=== PATIENT | female | born 1985 | race Caucasian/White ===

== ENCOUNTER 2017-11-26 15:14 | Inpatient (IN) | payer BC, OTHER ==
[~2017-11-26] VITALS: Ht 167.6 cm; Wt 74.0 kg
[~2017-11-26 15:14] MED LIST: AMOCLA875 PO; ATOR20 PO; CIPR500 PO; DOCU100 PO; FENO145 PO; HYDACE10B PO; HYDACE5 PO; HYDMOR2 PO; IBUP800 PO; IUD; MECL25 PO; MULVITMINE; OMEP40CA12 PO; OXYACE5T PO; POTCHL20ER PO; PROC10 PO; PROM25 PO; Percocet 5-3251 EACH PO; Prilosec Otc20 MG PO; RANI150 PO; ROXICODONE5 MG PO; RXOXYACE PO; Roxicodone5 MG PO; SERT100; SERT50 PO
[2017-11-26 15:49] LABS: Source, Urine Clean Catch
[2017-11-26 15:52] LABS: BASOPHILS ABSOLUTE AUTO 0.05 K/mm3 (0.00-0.23); BASOPHILS PERCENT AUTO 1 % (0-2); EOSINOPHILS ABSOLUTE AUTO 0.28 K/mm3 (0.00-0.68); EOSINOPHILS PERCENT AUTO 3 % (0-6); Hematocrit 35.5 % (33.0-51.0); Hemoglobin 11.8 g/dL (11.5-16.0); IMMATURE GRAN ABSOLUTE AUTO 0.02 K/mm3 (0.00-0.10); IMMATURE GRAN PERCENT AUTO 0 % (0-1); LYMPHOCYTES ABSOLUTE AUTO 2.52 K/mm3 (0.84-5.20); LYMPHOCYTES PERCENT AUTO 28 % (21-46); MONOCYTES ABSOLUTE AUTO 0.46 K/mm3 (0.16-1.47); MONOCYTES PERCENT AUTO 5 % (4-13); Mean Corpuscular HGB 27.5 pg (26.0-34.0); Mean Corpuscular HGB Conc 33.2 g/dL (31.5-36.5); Mean Corpuscular Volume 83 fL (80-100); Mean Platelet Volume 9.9 fL (9.1-12.4); NEUTROPHILS ABSOLUTE AUTO 5.68 K/mm3 (1.96-9.15); NEUTROPHILS PERCENT AUTO 63 % (41-73); Platelet Count 258 K/mm3 (150-400); RDW Coefficient Variation 13.6 % (11.7-14.2); RDW Standard Deviation 40.9 fL (35.1-46.3); Red Blood Cell Count 4.29 M/mm3 (3.80-5.20); White Blood Cell Count 9.01 K/mm3 (4.00-11.30)
[2017-11-26 15:56] LABS: Appearance, Urine Clear (Clear); Bilirubin, Urine Neg (Neg); Blood, Urine Neg (Neg); Color, Urine Yellow (P-Yellow); Glucose Qualitative, Urine Neg (Neg); Ketones, Urine Neg (Neg); Leukocyte Esterase, Urine Neg (Neg); Nitrite, Urine Neg (Neg); Protein, Urine 1+ (Neg); Specific Gravity, Urine 1.015 (1.003-1.022); Urobilinogen, Urine NORM (Normal)
[2017-11-26 16:23] LABS: Alanine Aminotransfer (ALT/SGP 19 U/L (12-78); Albumin, Blood 3.5 g/dL (3.4-5.0); Albumin/Globulin Ratio 0.9 (0.8-1.8); Alk Phos 93 U/L (50-136); Anion Gap 8 mmol/L (6-16); Aspartate Aminotrans (AST/SGOT 11 U/L (12-37); Bilirubin, Total 0.6 mg/dL (0.1-1.0); Blood Urea Nitrogen 13 mg/dL (8-24); Bun/Creatinine Ratio 28.6 (12.0-20.0); CO2, Blood 23 mmol/L (21-32); Calcium, Blood 8.4 mg/dL (8.5-10.1); Chloride, Blood 105 mmol/L (98-108); Cholesterol 234 mg/dL (50-200); Creatinine, Blood 0.46 mg/dL (0.40-1.00); Globulin, Blood 3.7 g/dL (2.2-4.0); Glomerular Filtration Rate >60 (60-); Glucose, Blood 98 mg/dL (70-99); Potassium, Blood 3.8 mmol/L (3.5-5.5); Sodium, Blood 136 mmol/L (136-145); Total Protein, Blood 7.2 g/dL (6.4-8.2); Triglycerides 294 mg/dL (30-140)
[2017-11-26] MEDS ORDERED: NAPR220 PO (22:41)
[2017-11-27 04:25] LABS: BASOPHILS ABSOLUTE AUTO 0.06 K/mm3 (0.00-0.23); BASOPHILS PERCENT AUTO 0 % (0-2); EOSINOPHILS ABSOLUTE AUTO 0.27 K/mm3 (0.00-0.68); EOSINOPHILS PERCENT AUTO 2 % (0-6); Hematocrit 36.4 % (33.0-51.0); Hemoglobin 11.9 g/dL (11.5-16.0); IMMATURE GRAN ABSOLUTE AUTO 0.03 K/mm3 (0.00-0.10); IMMATURE GRAN PERCENT AUTO 0 % (0-1); LYMPHOCYTES PERCENT AUTO 33 % (21-46); MONOCYTES ABSOLUTE AUTO 0.77 K/mm3 (0.16-1.47); MONOCYTES PERCENT AUTO 6 % (4-13); Mean Corpuscular HGB 27.9 pg (26.0-34.0); Mean Corpuscular HGB Conc 32.7 g/dL (31.5-36.5); Mean Corpuscular Volume 85 fL (80-100); Mean Platelet Volume 10.4 fL (9.1-12.4); NEUTROPHILS ABSOLUTE AUTO 8.31 K/mm3 (1.96-9.15); NEUTROPHILS PERCENT AUTO 59 % (41-73); Platelet Count 290 K/mm3 (150-400); RDW Coefficient Variation 13.6 % (11.7-14.2); RDW Standard Deviation 42.1 fL (35.1-46.3); Red Blood Cell Count 4.27 M/mm3 (3.80-5.20); White Blood Cell Count 14.04 K/mm3 (4.00-11.30)
[2017-11-27 04:46] LABS: Anion Gap 8 mmol/L (6-16); Blood Urea Nitrogen 10 mg/dL (8-24); Bun/Creatinine Ratio 21.2 (12.0-20.0); CO2, Blood 23 mmol/L (21-32); Calcium, Blood 8.1 mg/dL (8.5-10.1); Chloride, Blood 109 mmol/L (98-108); Creatinine, Blood 0.47 mg/dL (0.40-1.00); Glomerular Filtration Rate >60 (60-); Glucose, Blood 101 mg/dL (70-99); Phosphorus, Blood 2.6 mg/dL (2.5-4.9); Potassium, Blood 3.7 mmol/L (3.5-5.5); Sodium, Blood 140 mmol/L (136-145)
[2017-11-27 14:03] LABS: BASOPHILS ABSOLUTE AUTO 0.03 K/mm3 (0.00-0.23); BASOPHILS PERCENT AUTO 0 % (0-2); EOSINOPHILS ABSOLUTE AUTO 0.02 K/mm3 (0.00-0.68); EOSINOPHILS PERCENT AUTO 0 % (0-6); Hematocrit 34.8 % (33.0-51.0); Hemoglobin 11.2 g/dL (11.5-16.0); IMMATURE GRAN ABSOLUTE AUTO 0.04 K/mm3 (0.00-0.10); IMMATURE GRAN PERCENT AUTO 0 % (0-1); LYMPHOCYTES ABSOLUTE AUTO 1.24 K/mm3 (0.84-5.20); LYMPHOCYTES PERCENT AUTO 10 % (21-46); MONOCYTES ABSOLUTE AUTO 0.63 K/mm3 (0.16-1.47); MONOCYTES PERCENT AUTO 5 % (4-13); Mean Corpuscular HGB 27.6 pg (26.0-34.0); Mean Corpuscular HGB Conc 32.2 g/dL (31.5-36.5); Mean Corpuscular Volume 86 fL (80-100); NEUTROPHILS ABSOLUTE AUTO 10.88 K/mm3 (1.96-9.15); NEUTROPHILS PERCENT AUTO 85 % (41-73); Platelet Count 230 K/mm3 (150-400); RDW Coefficient Variation 13.5 % (11.7-14.2); RDW Standard Deviation 42.6 fL (35.1-46.3); Red Blood Cell Count 4.06 M/mm3 (3.80-5.20); White Blood Cell Count 12.84 K/mm3 (4.00-11.30)
[2017-11-28 06:04] LABS: Alanine Aminotransfer (ALT/SGP 14 U/L (12-78); Albumin, Blood 3.3 g/dL (3.4-5.0); Albumin/Globulin Ratio 0.8 (0.8-1.8); Alk Phos 84 U/L (50-136); Anion Gap 9 mmol/L (6-16); Aspartate Aminotrans (AST/SGOT 12 U/L (12-37); Bilirubin, Total 0.8 mg/dL (0.1-1.0); Blood Urea Nitrogen 14 mg/dL (8-24); Bun/Creatinine Ratio 24.9 (12.0-20.0); CO2, Blood 23 mmol/L (21-32); Calcium, Blood 8.4 mg/dL (8.5-10.1); Chloride, Blood 106 mmol/L (98-108); Creatinine, Blood 0.56 mg/dL (0.40-1.00); Glomerular Filtration Rate >60 (60-); Glucose, Blood 99 mg/dL (70-99); Potassium, Blood 4.1 mmol/L (3.5-5.5); Sodium, Blood 138 mmol/L (136-145); Total Protein, Blood 7.3 g/dL (6.4-8.2)
[2017-11-28 13:23] LABS: BASOPHILS ABSOLUTE AUTO 0.03 K/mm3 (0.00-0.23); BASOPHILS PERCENT AUTO 0 % (0-2); EOSINOPHILS ABSOLUTE AUTO 0.09 K/mm3 (0.00-0.68); EOSINOPHILS PERCENT AUTO 1 % (0-6); Hematocrit 34.7 % (33.0-51.0); Hemoglobin 11.4 g/dL (11.5-16.0); IMMATURE GRAN ABSOLUTE AUTO 0.04 K/mm3 (0.00-0.10); IMMATURE GRAN PERCENT AUTO 0 % (0-1); LYMPHOCYTES ABSOLUTE AUTO 2.31 K/mm3 (0.84-5.20); LYMPHOCYTES PERCENT AUTO 19 % (21-46); MONOCYTES ABSOLUTE AUTO 0.75 K/mm3 (0.16-1.47); MONOCYTES PERCENT AUTO 6 % (4-13); Mean Corpuscular HGB 27.9 pg (26.0-34.0); Mean Corpuscular HGB Conc 32.9 g/dL (31.5-36.5); Mean Corpuscular Volume 85 fL (80-100); NEUTROPHILS ABSOLUTE AUTO 9.21 K/mm3 (1.96-9.15); NEUTROPHILS PERCENT AUTO 74 % (41-73); Platelet Count 205 K/mm3 (150-400); RDW Coefficient Variation 13.5 % (11.7-14.2); RDW Standard Deviation 42.1 fL (35.1-46.3); Red Blood Cell Count 4.08 M/mm3 (3.80-5.20); White Blood Cell Count 12.43 K/mm3 (4.00-11.30)
[2017-11-29 05:12] LABS: BASOPHILS ABSOLUTE AUTO 0.03 K/mm3 (0.00-0.23); BASOPHILS PERCENT AUTO 0 % (0-2); EOSINOPHILS ABSOLUTE AUTO 0.16 K/mm3 (0.00-0.68); EOSINOPHILS PERCENT AUTO 1 % (0-6); Hematocrit 32.6 % (33.0-51.0); Hemoglobin 10.9 g/dL (11.5-16.0); IMMATURE GRAN ABSOLUTE AUTO 0.05 K/mm3 (0.00-0.10); IMMATURE GRAN PERCENT AUTO 0 % (0-1); LYMPHOCYTES ABSOLUTE AUTO 1.79 K/mm3 (0.84-5.20); LYMPHOCYTES PERCENT AUTO 15 % (21-46); MONOCYTES ABSOLUTE AUTO 0.81 K/mm3 (0.16-1.47); MONOCYTES PERCENT AUTO 7 % (4-13); Mean Corpuscular HGB 28.4 pg (26.0-34.0); Mean Corpuscular HGB Conc 33.4 g/dL (31.5-36.5); Mean Corpuscular Volume 85 fL (80-100); Mean Platelet Volume 10.7 fL (9.1-12.4); NEUTROPHILS ABSOLUTE AUTO 9.27 K/mm3 (1.96-9.15); NEUTROPHILS PERCENT AUTO 77 % (41-73); Platelet Count 210 K/mm3 (150-400); RDW Coefficient Variation 13.6 % (11.7-14.2); RDW Standard Deviation 41.8 fL (35.1-46.3); Red Blood Cell Count 3.84 M/mm3 (3.80-5.20); White Blood Cell Count 12.11 K/mm3 (4.00-11.30)
[2017-11-29 05:39] LABS: Alanine Aminotransfer (ALT/SGP 30 U/L (12-78); Albumin, Blood 2.9 g/dL (3.4-5.0); Albumin/Globulin Ratio 0.7 (0.8-1.8); Alk Phos 96 U/L (50-136); Anion Gap 8 mmol/L (6-16); Aspartate Aminotrans (AST/SGOT 26 U/L (12-37); Bilirubin, Total 0.7 mg/dL (0.1-1.0); Blood Urea Nitrogen 11 mg/dL (8-24); Bun/Creatinine Ratio 25.2 (12.0-20.0); CO2, Blood 27 mmol/L (21-32); Calcium, Blood 8.3 mg/dL (8.5-10.1); Chloride, Blood 100 mmol/L (98-108); Creatinine, Blood 0.44 mg/dL (0.40-1.00); Globulin, Blood 4.1 g/dL (2.2-4.0); Glomerular Filtration Rate >60 (60-); Glucose, Blood 92 mg/dL (70-99); Potassium, Blood 3.4 mmol/L (3.5-5.5); Sodium, Blood 135 mmol/L (136-145)
[2017-11-30 05:02] LABS: BASOPHILS ABSOLUTE AUTO 0.03 K/mm3 (0.00-0.23); BASOPHILS PERCENT AUTO 0 % (0-2); EOSINOPHILS ABSOLUTE AUTO 0.18 K/mm3 (0.00-0.68); EOSINOPHILS PERCENT AUTO 2 % (0-6); Hematocrit 28.3 % (33.0-51.0); Hemoglobin 9.4 g/dL (11.5-16.0); IMMATURE GRAN ABSOLUTE AUTO 0.03 K/mm3 (0.00-0.10); IMMATURE GRAN PERCENT AUTO 0 % (0-1); LYMPHOCYTES ABSOLUTE AUTO 2.12 K/mm3 (0.84-5.20); LYMPHOCYTES PERCENT AUTO 24 % (21-46); MONOCYTES ABSOLUTE AUTO 0.72 K/mm3 (0.16-1.47); MONOCYTES PERCENT AUTO 8 % (4-13); Mean Corpuscular HGB 28.1 pg (26.0-34.0); Mean Corpuscular HGB Conc 33.2 g/dL (31.5-36.5); Mean Corpuscular Volume 85 fL (80-100); Mean Platelet Volume 10.3 fL (9.1-12.4); NEUTROPHILS ABSOLUTE AUTO 5.87 K/mm3 (1.96-9.15); NEUTROPHILS PERCENT AUTO 66 % (41-73); Platelet Count 204 K/mm3 (150-400); RDW Coefficient Variation 13.4 % (11.7-14.2); RDW Standard Deviation 41.6 fL (35.1-46.3); Red Blood Cell Count 3.35 M/mm3 (3.80-5.20); White Blood Cell Count 8.95 K/mm3 (4.00-11.30)
[2017-11-30 05:33] LABS: Alanine Aminotransfer (ALT/SGP 22 U/L (12-78); Albumin, Blood 2.7 g/dL (3.4-5.0); Albumin/Globulin Ratio 0.7 (0.8-1.8); Alk Phos 88 U/L (50-136); Amylase, Blood 93 U/L (25-115); Anion Gap 6 mmol/L (6-16); Aspartate Aminotrans (AST/SGOT 16 U/L (12-37); Bilirubin, Total 0.3 mg/dL (0.1-1.0); Blood Urea Nitrogen 8 mg/dL (8-24); Bun/Creatinine Ratio 21.3 (12.0-20.0); CO2, Blood 30 mmol/L (21-32); Calcium, Blood 8.2 mg/dL (8.5-10.1); Chloride, Blood 100 mmol/L (98-108); Creatinine, Blood 0.38 mg/dL (0.40-1.00); Globulin, Blood 3.7 g/dL (2.2-4.0); Glomerular Filtration Rate >60 (60-); Glucose, Blood 113 mg/dL (70-99); Potassium, Blood 2.9 mmol/L (3.5-5.5); Sodium, Blood 136 mmol/L (136-145); Total Protein, Blood 6.4 g/dL (6.4-8.2)
[2017-12-01 05:51] LABS: BASOPHILS ABSOLUTE AUTO 0.04 K/mm3 (0.00-0.23); BASOPHILS PERCENT AUTO 1 % (0-2); EOSINOPHILS ABSOLUTE AUTO 0.28 K/mm3 (0.00-0.68); EOSINOPHILS PERCENT AUTO 3 % (0-6); Hematocrit 27.5 % (33.0-51.0); IMMATURE GRAN ABSOLUTE AUTO 0.03 K/mm3 (0.00-0.10); IMMATURE GRAN PERCENT AUTO 0 % (0-1); LYMPHOCYTES ABSOLUTE AUTO 2.47 K/mm3 (0.84-5.20); LYMPHOCYTES PERCENT AUTO 28 % (21-46); MONOCYTES ABSOLUTE AUTO 0.58 K/mm3 (0.16-1.47); MONOCYTES PERCENT AUTO 7 % (4-13); Mean Corpuscular HGB 27.9 pg (26.0-34.0); Mean Corpuscular HGB Conc 32.7 g/dL (31.5-36.5); Mean Corpuscular Volume 85 fL (80-100); Mean Platelet Volume 10.2 fL (9.1-12.4); NEUTROPHILS ABSOLUTE AUTO 5.36 K/mm3 (1.96-9.15); NEUTROPHILS PERCENT AUTO 61 % (41-73); Platelet Count 225 K/mm3 (150-400); RDW Coefficient Variation 13.6 % (11.7-14.2); RDW Standard Deviation 42.5 fL (35.1-46.3); Red Blood Cell Count 3.23 M/mm3 (3.80-5.20); White Blood Cell Count 8.76 K/mm3 (4.00-11.30)
[2017-12-01 06:11] LABS: Alanine Aminotransfer (ALT/SGP 18 U/L (12-78); Albumin, Blood 2.4 g/dL (3.4-5.0); Albumin/Globulin Ratio 0.7 (0.8-1.8); Alk Phos 83 U/L (50-136); Amylase, Blood 58 U/L (25-115); Anion Gap 7 mmol/L (6-16); Aspartate Aminotrans (AST/SGOT 14 U/L (12-37); Bilirubin, Total 0.1 mg/dL (0.1-1.0); Blood Urea Nitrogen 12 mg/dL (8-24); Bun/Creatinine Ratio 29.1 (12.0-20.0); CO2, Blood 29 mmol/L (21-32); Calcium, Blood 8.3 mg/dL (8.5-10.1); Chloride, Blood 104 mmol/L (98-108); Creatinine, Blood 0.41 mg/dL (0.40-1.00); Globulin, Blood 3.6 g/dL (2.2-4.0); Glomerular Filtration Rate >60 (60-); Glucose, Blood 108 mg/dL (70-99); Potassium, Blood 3.5 mmol/L (3.5-5.5); Sodium, Blood 140 mmol/L (136-145)
[2017-12-01] MEDS ORDERED: ACET325 PO (10:32)
[2017-12-01] MEDS ORDERED: ATOR40TA PO (10:33)
[2017-12-01] MEDS ORDERED: NICO21TP TOP (10:34)
[2017-12-01] MEDS ORDERED: ONDA8 PO (10:35)
[2017-12-01] MEDS ORDERED: Percocet 7.5-31 EACH PO (10:37)
== END 2017-12-01 11:29 | disposition home or self-care (01) | DRG 440 ==
LOC: ER 15:14 → MEDS 15:15
PROVIDERS: Emergency Medicine; Family Medicine; Hospitalist
DX: K85.90 Acute pancreatitis without necrosis or infection, unspecified (principal); E78.00 Pure hypercholesterolemia, unspecified; F32.9 Major depressive disorder, single episode, unspecified; F41.9 Anxiety disorder, unspecified; K21.9 Gastro-esophageal reflux disease without esophagitis; G47.33 Obstructive sleep apnea (adult) (pediatric); E78.1 Pure hyperglyceridemia; E87.6 Hypokalemia; K86.1 Other chronic pancreatitis; F17.210 Nicotine dependence, cigarettes, uncomplicated; Z88.5 Allergy status to narcotic agent; Z88.8 Allergy status to other drugs, medicaments and biological substances; Z79.899 Other long term (current) drug therapy
CPT/HCPCS: 36415; 74176; 76700; 80048; 80053; 82150; 82330; 82465; 83690; 83735; 84100; 84478; 84484; 84703; 85025; 96361; 96365; 96372; 96374; 96375; 96376; 99285; G0378; J1170; J1650; J1885; J2185; J2405; J3010; J3480; J7030

== ENCOUNTER 2018-04-23 10:55 | Inpatient (IN) | payer BC, OTHER ==
[~2018-04-23] VITALS: Ht 170.2 cm; Wt 73.1 kg
[~2018-04-23 10:55] MED LIST changes: +ACET325 PO; +ATOR40TA PO; +NAPR220 PO; +NICO21TP TOP; +ONDA8 PO; +Percocet 7.5-31 EACH PO
[2018-04-23 11:51] LABS: BASOPHILS ABSOLUTE AUTO 0.06 K/mm3 (0.00-0.23); BASOPHILS PERCENT AUTO 0 % (0-2); EOSINOPHILS ABSOLUTE AUTO 0.36 K/mm3 (0.00-0.68); EOSINOPHILS PERCENT AUTO 3 % (0-6); Hemoglobin 12.5 g/dL (11.5-16.0); IMMATURE GRAN ABSOLUTE AUTO 0.04 K/mm3 (0.00-0.10); IMMATURE GRAN PERCENT AUTO 0 % (0-1); LYMPHOCYTES ABSOLUTE AUTO 3.02 K/mm3 (0.84-5.20); LYMPHOCYTES PERCENT AUTO 22 % (21-46); MONOCYTES ABSOLUTE AUTO 0.57 K/mm3 (0.16-1.47); MONOCYTES PERCENT AUTO 4 % (4-13); Mean Corpuscular HGB 27.1 pg (26.0-34.0); Mean Corpuscular HGB Conc 32.9 g/dL (31.5-36.5); Mean Corpuscular Volume 82 fL (80-100); Mean Platelet Volume 10.5 fL (9.1-12.4); NEUTROPHILS ABSOLUTE AUTO 9.66 K/mm3 (1.96-9.15); NEUTROPHILS PERCENT AUTO 71 % (41-73); Platelet Count 324 K/mm3 (150-400); RDW Coefficient Variation 13.7 % (11.7-14.2); RDW Standard Deviation 41.1 fL (35.1-46.3); Red Blood Cell Count 4.61 M/mm3 (3.80-5.20); White Blood Cell Count 13.71 K/mm3 (4.00-11.30)
[2018-04-23 12:22] LABS: Alanine Aminotransfer (ALT/SGP 19 U/L (12-78); Albumin, Blood 3.8 g/dL (3.4-5.0); Alk Phos 93 U/L (50-136); Anion Gap 8 mmol/L (6-16); Aspartate Aminotrans (AST/SGOT 11 U/L (12-37); Bilirubin, Total 0.4 mg/dL (0.1-1.0); Blood Urea Nitrogen 17 mg/dL (8-24); Bun/Creatinine Ratio 33.9 (12.0-20.0); CO2, Blood 24 mmol/L (21-32); Calcium, Blood 8.4 mg/dL (8.5-10.1); Chloride, Blood 106 mmol/L (98-108); Globulin, Blood 3.7 g/dL (2.2-4.0); Glomerular Filtration Rate >60 (60-); Glucose, Blood 102 mg/dL (70-99); Potassium, Blood 4.4 mmol/L (3.5-5.5); Sodium, Blood 138 mmol/L (136-145); Total Protein, Blood 7.5 g/dL (6.4-8.2)
[2018-04-23 13:18] LABS: Source, Urine Clean Catch
[2018-04-23 13:40] LABS: Bilirubin, Urine Neg (Neg); Blood, Urine Neg (Neg); Glucose Qualitative, Urine Neg (Neg); Ketones, Urine Neg (Neg); Leukocyte Esterase, Urine Neg (Neg); Nitrite, Urine Neg (Neg); Protein, Urine Neg (Neg); Urobilinogen, Urine NORM (Normal)
[2018-04-23 13:55] LABS: Appearance, Urine Clear (Clear); Color, Urine Yellow (P-Yellow)
[2018-04-23] MEDS ORDERED: ALEVE220 MG PO (14:21)
[2018-04-24 04:24] LABS: Anion Gap 7 mmol/L (6-16); Blood Urea Nitrogen 11 mg/dL (8-24); Bun/Creatinine Ratio 23.4 (12.0-20.0); CO2, Blood 27 mmol/L (21-32); Calcium, Blood 8.4 mg/dL (8.5-10.1); Chloride, Blood 105 mmol/L (98-108); Creatinine, Blood 0.47 mg/dL (0.40-1.00); Glomerular Filtration Rate >60 (60-); Glucose, Blood 108 mg/dL (70-99); Sodium, Blood 139 mmol/L (136-145)
[2018-04-25 05:21] LABS: Anion Gap 7 mmol/L (6-16); Blood Urea Nitrogen 14 mg/dL (8-24); Bun/Creatinine Ratio 25.5 (12.0-20.0); CO2, Blood 30 mmol/L (21-32); Calcium, Blood 8.5 mg/dL (8.5-10.1); Chloride, Blood 103 mmol/L (98-108); Creatinine, Blood 0.55 mg/dL (0.40-1.00); Glomerular Filtration Rate >60 (60-); Glucose, Blood 102 mg/dL (70-99); Potassium, Blood 3.9 mmol/L (3.5-5.5); Sodium, Blood 140 mmol/L (136-145)
[2018-04-26 04:30] LABS: Anion Gap 10 mmol/L (6-16); Blood Urea Nitrogen 10 mg/dL (8-24); Bun/Creatinine Ratio 21.9 (12.0-20.0); CO2, Blood 27 mmol/L (21-32); Calcium, Blood 8.3 mg/dL (8.5-10.1); Chloride, Blood 102 mmol/L (98-108); Creatinine, Blood 0.46 mg/dL (0.40-1.00); Glomerular Filtration Rate >60 (60-); Glucose, Blood 78 mg/dL (70-99); Potassium, Blood 3.7 mmol/L (3.5-5.5); Sodium, Blood 139 mmol/L (136-145)
[2018-04-27 18:50] LABS: Albumin, Blood 2.4 g/dL (3.4-5.0); Albumin/Globulin Ratio 0.6 (0.8-1.8); Bilirubin, Indirect 1.5 mg/dL (0.1-0.7); Bilirubin, Total 6.5 mg/dL (0.1-1.0); Globulin, Blood 3.8 g/dL (2.2-4.0); Total Protein, Blood 6.2 g/dL (6.4-8.2)
[2018-04-27 22:38] LABS: BASOPHILS ABSOLUTE AUTO 0.02 K/mm3 (0.00-0.23); BASOPHILS PERCENT AUTO 0 % (0-2); EOSINOPHILS ABSOLUTE AUTO 0.16 K/mm3 (0.00-0.68); EOSINOPHILS PERCENT AUTO 2 % (0-6); Hematocrit 27.3 % (33.0-51.0); Hemoglobin 9.2 g/dL (11.5-16.0); IMMATURE GRAN ABSOLUTE AUTO 0.05 K/mm3 (0.00-0.10); IMMATURE GRAN PERCENT AUTO 1 % (0-1); LYMPHOCYTES ABSOLUTE AUTO 1.28 K/mm3 (0.84-5.20); LYMPHOCYTES PERCENT AUTO 14 % (21-46); MONOCYTES ABSOLUTE AUTO 0.69 K/mm3 (0.16-1.47); MONOCYTES PERCENT AUTO 8 % (4-13); Mean Corpuscular HGB 28.2 pg (26.0-34.0); Mean Corpuscular HGB Conc 33.7 g/dL (31.5-36.5); Mean Corpuscular Volume 84 fL (80-100); Mean Platelet Volume 9.9 fL (9.1-12.4); NEUTROPHILS ABSOLUTE AUTO 6.68 K/mm3 (1.96-9.15); NEUTROPHILS PERCENT AUTO 75 % (41-73); Platelet Count 230 K/mm3 (150-400); RDW Coefficient Variation 14.3 % (11.7-14.2); RDW Standard Deviation 44.2 fL (35.1-46.3); Red Blood Cell Count 3.26 M/mm3 (3.80-5.20); White Blood Cell Count 8.88 K/mm3 (4.00-11.30)
[2018-04-28 04:47] LABS: Alanine Aminotransfer (ALT/SGP 72 U/L (12-78); Albumin/Globulin Ratio 0.5 (0.8-1.8); Alk Phos 303 U/L (50-136); Anion Gap 10 mmol/L (6-16); Aspartate Aminotrans (AST/SGOT 48 U/L (12-37); Blood Urea Nitrogen 4 mg/dL (8-24); CO2, Blood 28 mmol/L (21-32); Chloride, Blood 102 mmol/L (98-108); Globulin, Blood 3.9 g/dL (2.2-4.0); Glomerular Filtration Rate >60 (60-); Glucose, Blood 89 mg/dL (70-99); Potassium, Blood 3.1 mmol/L (3.5-5.5); Sodium, Blood 140 mmol/L (136-145); Total Protein, Blood 5.9 g/dL (6.4-8.2)
[2018-04-29 06:26] LABS: BASOPHILS ABSOLUTE AUTO 0.02 K/mm3 (0.00-0.23); BASOPHILS PERCENT AUTO 0 % (0-2); EOSINOPHILS ABSOLUTE AUTO 0.14 K/mm3 (0.00-0.68); EOSINOPHILS PERCENT AUTO 2 % (0-6); Hematocrit 25.8 % (33.0-51.0); Hemoglobin 8.9 g/dL (11.5-16.0); IMMATURE GRAN ABSOLUTE AUTO 0.16 K/mm3 (0.00-0.10); IMMATURE GRAN PERCENT AUTO 2 % (0-1); LYMPHOCYTES ABSOLUTE AUTO 1.79 K/mm3 (0.84-5.20); LYMPHOCYTES PERCENT AUTO 20 % (21-46); MONOCYTES ABSOLUTE AUTO 0.84 K/mm3 (0.16-1.47); MONOCYTES PERCENT AUTO 9 % (4-13); Mean Corpuscular HGB 28.4 pg (26.0-34.0); Mean Corpuscular HGB Conc 34.5 g/dL (31.5-36.5); Mean Corpuscular Volume 82 fL (80-100); Mean Platelet Volume 10.1 fL (9.1-12.4); NEUTROPHILS ABSOLUTE AUTO 6.06 K/mm3 (1.96-9.15); NEUTROPHILS PERCENT AUTO 67 % (41-73); Platelet Count 279 K/mm3 (150-400); RDW Coefficient Variation 14.4 % (11.7-14.2); RDW Standard Deviation 42.6 fL (35.1-46.3); Red Blood Cell Count 3.13 M/mm3 (3.80-5.20); White Blood Cell Count 9.01 K/mm3 (4.00-11.30)
[2018-04-29 06:50] LABS: Alanine Aminotransfer (ALT/SGP 78 U/L (12-78); Albumin, Blood 2.1 g/dL (3.4-5.0); Albumin/Globulin Ratio 0.5 (0.8-1.8); Alk Phos 351 U/L (50-136); Anion Gap 8 mmol/L (6-16); Aspartate Aminotrans (AST/SGOT 74 U/L (12-37); Bilirubin, Total 6.2 mg/dL (0.1-1.0); Blood Urea Nitrogen 3 mg/dL (8-24); Bun/Creatinine Ratio 7.2 (12.0-20.0); CO2, Blood 29 mmol/L (21-32); Calcium, Blood 8.3 mg/dL (8.5-10.1); Chloride, Blood 103 mmol/L (98-108); Creatinine, Blood 0.42 mg/dL (0.40-1.00); Glomerular Filtration Rate >60 (60-); Glucose, Blood 96 mg/dL (70-99); Potassium, Blood 3.4 mmol/L (3.5-5.5); Sodium, Blood 140 mmol/L (136-145); Total Protein, Blood 6.1 g/dL (6.4-8.2)
[2018-04-30 03:26] LABS: BASOPHILS ABSOLUTE AUTO 0.03 K/mm3 (0.00-0.23); BASOPHILS PERCENT AUTO 0 % (0-2); EOSINOPHILS ABSOLUTE AUTO 0.21 K/mm3 (0.00-0.68); EOSINOPHILS PERCENT AUTO 2 % (0-6); Hematocrit 27.4 % (33.0-51.0); Hemoglobin 9.3 g/dL (11.5-16.0); IMMATURE GRAN ABSOLUTE AUTO 0.25 K/mm3 (0.00-0.10); IMMATURE GRAN PERCENT AUTO 2 % (0-1); LYMPHOCYTES ABSOLUTE AUTO 2.25 K/mm3 (0.84-5.20); LYMPHOCYTES PERCENT AUTO 21 % (21-46); MONOCYTES ABSOLUTE AUTO 1.01 K/mm3 (0.16-1.47); MONOCYTES PERCENT AUTO 10 % (4-13); Mean Corpuscular HGB Conc 33.9 g/dL (31.5-36.5); Mean Corpuscular Volume 83 fL (80-100); Mean Platelet Volume 10.2 fL (9.1-12.4); NEUTROPHILS ABSOLUTE AUTO 6.81 K/mm3 (1.96-9.15); NEUTROPHILS PERCENT AUTO 64 % (41-73); Platelet Count 329 K/mm3 (150-400); RDW Coefficient Variation 14.6 % (11.7-14.2); RDW Standard Deviation 43.4 fL (35.1-46.3); Red Blood Cell Count 3.32 M/mm3 (3.80-5.20); White Blood Cell Count 10.56 K/mm3 (4.00-11.30)
[2018-04-30 03:44] LABS: Alanine Aminotransfer (ALT/SGP 89 U/L (12-78); Albumin, Blood 2.2 g/dL (3.4-5.0); Albumin/Globulin Ratio 0.6 (0.8-1.8); Alk Phos 367 U/L (50-136); Anion Gap 9 mmol/L (6-16); Aspartate Aminotrans (AST/SGOT 77 U/L (12-37); Bilirubin, Total 6.3 mg/dL (0.1-1.0); Blood Urea Nitrogen 3 mg/dL (8-24); Bun/Creatinine Ratio 7.1 (12.0-20.0); CO2, Blood 27 mmol/L (21-32); Calcium, Blood 8.5 mg/dL (8.5-10.1); Chloride, Blood 104 mmol/L (98-108); Creatinine, Blood 0.42 mg/dL (0.40-1.00); Glomerular Filtration Rate >60 (60-); Glucose, Blood 106 mg/dL (70-99); Magnesium, Blood 1.8 mg/dL (1.6-2.4); Potassium, Blood 3.5 mmol/L (3.5-5.5); Sodium, Blood 140 mmol/L (136-145); Total Protein, Blood 6.2 g/dL (6.4-8.2)
[2018-05-01 05:19] LABS: HBSAG SCREEN Negative (Negative); HEP A AB, IGM Negative (Negative); HEP B CORE AB, IGM Negative (Negative); HEP C VIRUS AB <0.1 (0.0-0.9)
== END 2018-04-30 17:03 | disposition short-term general hospital (02) | DRG 440 ==
LOC: ER 10:55 → PCU 12:58
PROVIDERS: Emergency Medicine; Internal Medicine; Internal Medicine Gastroenterology; Nurse Practitioner Acute Care
DX: K85.90 Acute pancreatitis without necrosis or infection, unspecified (principal); F41.9 Anxiety disorder, unspecified; F32.9 Major depressive disorder, single episode, unspecified; K21.9 Gastro-esophageal reflux disease without esophagitis; R94.5 Abnormal results of liver function studies; K86.1 Other chronic pancreatitis; D64.9 Anemia, unspecified; E78.1 Pure hyperglyceridemia; E87.6 Hypokalemia; K59.03 Drug induced constipation; F17.200 Nicotine dependence, unspecified, uncomplicated; T40.605A Adverse effect of unspecified narcotics, initial encounter; E80.6 Other disorders of bilirubin metabolism; Z79.899 Other long term (current) drug therapy; Z88.5 Allergy status to narcotic agent; Z88.8 Allergy status to other drugs, medicaments and biological substances; Z91.048 Other nonmedicinal substance allergy status; Z90.49 Acquired absence of other specified parts of digestive tract
CPT/HCPCS: 36415; 74177; 74183; 80048; 80053; 80074; 80076; 81003; 81025; 83690; 83735; 85025; 86140; 94762; 96361; 96374; 96375; 99285-25; A9577; C1751; C9113; J1170; J1650; J1885; J2405; J3010; J3480; J7030; J7120; Q9967

== ENCOUNTER 2018-09-19 09:49 | Inpatient (IN) | payer OTHER ==
[~2018-09-19] VITALS: Ht 170.2 cm; Wt 74.5 kg
[~2018-09-19 09:49] MED LIST changes: +ALEVE220 MG PO
[2018-09-19 12:29] LABS: BASOPHILS ABSOLUTE AUTO 0.06 K/mm3 (0.00-0.23); BASOPHILS PERCENT AUTO 1 % (0-2); EOSINOPHILS ABSOLUTE AUTO 0.25 K/mm3 (0.00-0.68); EOSINOPHILS PERCENT AUTO 2 % (0-6); Hematocrit 37.8 % (33.0-51.0); Hemoglobin 12.6 g/dL (11.5-16.0); IMMATURE GRAN ABSOLUTE AUTO 0.02 K/mm3 (0.00-0.10); IMMATURE GRAN PERCENT AUTO 0 % (0-1); LYMPHOCYTES ABSOLUTE AUTO 3.45 K/mm3 (0.84-5.20); LYMPHOCYTES PERCENT AUTO 34 % (21-46); MONOCYTES ABSOLUTE AUTO 0.49 K/mm3 (0.16-1.47); MONOCYTES PERCENT AUTO 5 % (4-13); Mean Corpuscular HGB 27.2 pg (26.0-34.0); Mean Corpuscular HGB Conc 33.3 g/dL (31.5-36.5); Mean Corpuscular Volume 82 fL (80-100); NEUTROPHILS ABSOLUTE AUTO 5.94 K/mm3 (1.96-9.15); NEUTROPHILS PERCENT AUTO 58 % (41-73); Platelet Count 268 K/mm3 (150-400); RDW Coefficient Variation 13.8 % (11.7-14.2); RDW Standard Deviation 41.1 fL (35.1-46.3); Red Blood Cell Count 4.64 M/mm3 (3.80-5.20); White Blood Cell Count 10.21 K/mm3 (4.00-11.30)
[2018-09-19 12:48] LABS: Alanine Aminotransfer (ALT/SGP 27 U/L (12-78); Albumin, Blood 3.8 g/dL (3.4-5.0); Albumin/Globulin Ratio 0.9 (0.8-1.8); Alk Phos 107 U/L (50-136); Anion Gap 8 mmol/L (6-16); Aspartate Aminotrans (AST/SGOT 14 U/L (12-37); Bilirubin, Total 0.4 mg/dL (0.1-1.0); Blood Urea Nitrogen 13 mg/dL (8-24); Bun/Creatinine Ratio 25.7 (12.0-20.0); CO2, Blood 24 mmol/L (21-32); Calcium, Blood 8.6 mg/dL (8.5-10.1); Chloride, Blood 104 mmol/L (98-108); Creatinine, Blood 0.51 mg/dL (0.40-1.00); Globulin, Blood 4.1 g/dL (2.2-4.0); Glomerular Filtration Rate >60 (60-); Glucose, Blood 103 mg/dL (70-99); Potassium, Blood 3.9 mmol/L (3.5-5.5); Sodium, Blood 136 mmol/L (136-145); Total Protein, Blood 7.9 g/dL (6.4-8.2)
[2018-09-19 13:28] LABS: Source, Urine Clean Catch
[2018-09-19 13:49] LABS: Bilirubin, Urine Neg (Neg); Blood, Urine Neg (Neg); Glucose Qualitative, Urine Neg (Neg); Ketones, Urine Neg (Neg); Leukocyte Esterase, Urine Neg (Neg); Nitrite, Urine Neg (Neg); Protein, Urine 1+ (Neg); Urobilinogen, Urine NORM (Normal)
[2018-09-19 14:11] LABS: Appearance, Urine Clear (Clear); Color, Urine Yellow (P-Yellow)
--- NOTE | 2018-09-19 17:28 | NUR ---
PT ADMITTED/SHIFT SUMMARY PT ADMITTED AT 1625. PT IN STABLE CONDITION WITH VSS. PT AMBULATORY. MEDICATED FOR PAIN ONE HOUR AFTER ARRIVAL. WILL CONTINUE TO MONITOR PAIN LEVEL. NO OTHER COMPLAINTS AT THIS TIME. PT ORIENTED TO ROOM AND GIVEN CALL LIGHT. WILL CONTINUE TO MONITOR UNTIL TURNOVER IS COMPLETE.
--- NOTE | 2018-09-20 00:44 | NUR ---
order for dilaudid for q30min was written in er replaced but not dc'd by order for q4, pt has requested medication q2, called he agreed to allow for q2 pain medication at current dose, kari'd first two orders and started new will be available to pt at 0200, will continue to monitor and treat.
[2018-09-20 05:03] LABS: BASOPHILS ABSOLUTE AUTO 0.03 K/mm3 (0.00-0.23); BASOPHILS PERCENT AUTO 0 % (0-2); EOSINOPHILS ABSOLUTE AUTO 0.25 K/mm3 (0.00-0.68); EOSINOPHILS PERCENT AUTO 3 % (0-6); Hematocrit 34.9 % (33.0-51.0); Hemoglobin 11.2 g/dL (11.5-16.0); IMMATURE GRAN ABSOLUTE AUTO 0.03 K/mm3 (0.00-0.10); IMMATURE GRAN PERCENT AUTO 0 % (0-1); LYMPHOCYTES ABSOLUTE AUTO 3.11 K/mm3 (0.84-5.20); LYMPHOCYTES PERCENT AUTO 31 % (21-46); MONOCYTES ABSOLUTE AUTO 0.59 K/mm3 (0.16-1.47); MONOCYTES PERCENT AUTO 6 % (4-13); Mean Corpuscular HGB 26.4 pg (26.0-34.0); Mean Corpuscular HGB Conc 32.1 g/dL (31.5-36.5); Mean Corpuscular Volume 82 fL (80-100); Mean Platelet Volume 10.3 fL (9.1-12.4); NEUTROPHILS ABSOLUTE AUTO 5.93 K/mm3 (1.96-9.15); NEUTROPHILS PERCENT AUTO 60 % (41-73); Platelet Count 236 K/mm3 (150-400); RDW Coefficient Variation 13.7 % (11.7-14.2); RDW Standard Deviation 40.9 fL (35.1-46.3); Red Blood Cell Count 4.24 M/mm3 (3.80-5.20); White Blood Cell Count 9.94 K/mm3 (4.00-11.30)
[2018-09-20 05:24] LABS: Alanine Aminotransfer (ALT/SGP 26 U/L (12-78); Albumin, Blood 3.6 g/dL (3.4-5.0); Alk Phos 102 U/L (50-136); Anion Gap 7 mmol/L (6-16); Aspartate Aminotrans (AST/SGOT 13 U/L (12-37); Bilirubin, Total 0.3 mg/dL (0.1-1.0); Blood Urea Nitrogen 11 mg/dL (8-24); Bun/Creatinine Ratio 21.8 (12.0-20.0); CO2, Blood 24 mmol/L (21-32); Calcium, Blood 8.3 mg/dL (8.5-10.1); Chloride, Blood 106 mmol/L (98-108); Globulin, Blood 3.5 g/dL (2.2-4.0); Glomerular Filtration Rate >60 (60-); Glucose, Blood 106 mg/dL (70-99); Potassium, Blood 3.5 mmol/L (3.5-5.5); Sodium, Blood 137 mmol/L (136-145); Total Protein, Blood 7.1 g/dL (6.4-8.2)
--- NOTE | 2018-09-20 07:21 | NUR ---
a+o up adlib, call light in reach, LR running with no s/sx of infection or infiltration, room air, walking rounds completed with day staff
--- NOTE | 2018-09-20 18:03 | NUR ---
SHIFT SUMMARY. A&OX4, INDEPENDENT IN ROOM. PT WITH CONSTANT C/O PAIN, PT REQUESTING DILAUDID Q2H. PT GIVEN DILAUDID 1MG IV ALMOST EVERY TWO HOURS. TORODOL ALSO GIVEN ORDERED. PT ZOFRAN GIVEN TWICE FOR C/O NAUSEA WITHOUT VOMITTING. NO OTHER CHANGES.
--- NOTE | 2018-09-21 04:27 | NUR ---
SHIFT SUMMARY PT HAS NOT SLEPT WELL DURING THE NIGHT. REQUESTING PAIN MEDICATION EVERY 2 HOURS. RECEIVED IV ZOFRAN WELL. PT C/O IV SITE BECOMING TENDER, NO REDNESS NOTED AND IS FLUSHING WELL. PT STATES THAT SHE USUALLY HAS A POWERGLIDE PLACED. WILL CONTINUE TO MONITOR.
[2018-09-21 11:17] LABS: Hematocrit 32.8 % (33.0-51.0); Hemoglobin 10.7 g/dL (11.5-16.0); Mean Corpuscular HGB 26.8 pg (26.0-34.0); Mean Corpuscular HGB Conc 32.6 g/dL (31.5-36.5); Mean Corpuscular Volume 82 fL (80-100); Mean Platelet Volume 10.3 fL (9.1-12.4); Platelet Count 166 K/mm3 (150-400); RDW Coefficient Variation 13.4 % (11.7-14.2); White Blood Cell Count 6.67 K/mm3 (4.00-11.30)
--- NOTE | 2018-09-21 16:10 | NUR ---
SHIFT SUMMARY. PT CONTINUES WITH CONSTANT PAIN, REQUESTING IV DILAUDID OFTEN IT IS AVAILABLE. PT GIVEN ZOFRAN X1 FOR REPORT OF NAUSEA WITHOUT EMESIS. FENTANYL PATCH APPLIED. LIPASE TRENDING DOWN TODAY.
--- NOTE | 2018-09-22 04:36 | NUR ---
SHIFT SUMMARY PT IS A 33-YEAR-OLD FEMALE, ADMITTED FOR ACUTE PANCREATITIS. SHE IS A&O X 4, AND INDEPENDENT IN THE ROOM. SHE WENT OUT TO SMOKE ONCE, AT THE BEGINNING OF THE SHIFT. THE PT COMPLAINED OF PAIN THROUGH THE NIGHT, AT AN 8-9/10. SHE WAS MEDICATED X 4 FOR PAIN WITH PRN DILAUDED. SHE DID SAY THAT SHE THINKS THAT THE FENTANYL PATCH IS HELPING, THE PAIN IS "NOT BAD BETWEEN DILAUDID DOSES". SHE WAS ALSO MEDICATED ONCE FOR NAUSEA WITH PRN ZOFRAN. PT DENIED ANY SOB OR OTHER COMPLAINTS. PT'S BP WAS LOW DURING AM VITALS AT 98/65, BUT SHE WAS DROWSY AT THE TIME. ALL OTHER VITALS STABLE. NO OTHER ACUTE CHANGES IN PT CONDITION NOTED. WILL CONTINUE TO MONITOR AND TREAT PER EMAR UNTIL HAND OFF TO DAY SHIFT.
[2018-09-22 05:36] LABS: Anion Gap 9 mmol/L (6-16); Blood Urea Nitrogen 5 mg/dL (8-24); Bun/Creatinine Ratio 10.5 (12.0-20.0); CO2, Blood 27 mmol/L (21-32); Calcium, Blood 8.4 mg/dL (8.5-10.1); Chloride, Blood 102 mmol/L (98-108); Creatinine, Blood 0.48 mg/dL (0.40-1.00); Glomerular Filtration Rate >60 (60-); Glucose, Blood 96 mg/dL (70-99); Potassium, Blood 3.4 mmol/L (3.5-5.5); Sodium, Blood 138 mmol/L (136-145)
[2018-09-22] MEDS ORDERED: TRAM50 PO (15:45)
--- NOTE | 2018-09-22 16:47 | NUR ---
DISCHARGE DR ECHEVARRIA IN TO SEE PT THIS AM, LIPASE IMPROVED @ 720. D/C IV PAIN & ORDER TRAMADOL FOR PAIN. PT HAS BEEN TOLERATING FL DIET, INCREASE TO REG FOODS & STATE IF PT ABLE TO TOLERATE SHE MAY GO HOME THIS AFTERNOON. PT TOLERATE LUNCH WELL. SHE STATE CONTINUING ABD PAIN, TRAMADOL GIVEN PRN X2 TODAY. DR ECHEVARRIA BACK TO SEE HER, STATE SHE MAY GO HOME, PLACE D/C ORDERS. IV D/C INTACT. D/C INSTRUCT PROVIDED. PT STATE WILL F/U WITH PCP IF SYMPTOMS WORSEN FOR REFERRAL TO GI SPECIALIST POSSIBLY @ [facility] OR [facility]. HARD COPY SCRIPT FOR TRAMADOL PROVIDED. PT PREFER TO AMBULATE FROM HOSP, PLEASANT AFFECT.
== END 2018-09-22 16:56 | disposition home or self-care (01) | DRG 440 ==
LOC: ER 09:49 → MEDS 15:14
PROVIDERS: Physician Assistant; ADMIT Internal Medicine
PROC: 3E0234Z Introduction of Serum, Toxoid and Vaccine into Muscle, Percutaneous Approach (ICD-10-PCS; principal; 2018-09-19)
DX: K85.90 Acute pancreatitis without necrosis or infection, unspecified (principal); K21.9 Gastro-esophageal reflux disease without esophagitis; F17.200 Nicotine dependence, unspecified, uncomplicated; Z88.5 Allergy status to narcotic agent; Z88.8 Allergy status to other drugs, medicaments and biological substances; Z79.899 Other long term (current) drug therapy; Z23 Encounter for immunization
CPT/HCPCS: 36415; 74176; 80048; 80053; 83690; 84703; 85025; 85027; 86141; 90686; 96374; 96375; 96376; 99285-25; C9113; J1170; J1650; J1885; J2405; J7030; J7120

== ENCOUNTER 2019-07-24 22:48 | Emergency (ER) | payer OTHER, BC ==
[~2019-07-24] VITALS: Ht 170.2 cm; Wt 74.8 kg
[~2019-07-24 22:48] MED LIST changes: +TRAM50 PO
== END 2019-07-25 01:18 | disposition home or self-care (01) ==
LOC: ER 22:48
DX: T24.612A Corrosion of second degree of left thigh, initial encounter (principal); T21.62XA Corrosion of second degree of abdominal wall, initial encounter; T32.0 Corrosions involving less than 10% of body surface; F32.9 Major depressive disorder, single episode, unspecified; F17.210 Nicotine dependence, cigarettes, uncomplicated; Z88.5 Allergy status to narcotic agent; Z88.8 Allergy status to other drugs, medicaments and biological substances; Z79.899 Other long term (current) drug therapy
CPT/HCPCS: 16020; 99283-25; A9270

== ENCOUNTER 2020-03-18 00:41 | Inpatient (IN) | payer BC, OTHER ==
[~2020-03-18] VITALS: Ht 170.2 cm; Wt 79.6 kg
[2020-03-18] MEDS ORDERED: HYDPAM25 PO (00:53)
[2020-03-18 01:16] LABS: BASOPHILS ABSOLUTE AUTO 0.06 K/mm3 (0.00-0.23); BASOPHILS PERCENT AUTO 1 % (0-2); EOSINOPHILS ABSOLUTE AUTO 0.29 K/mm3 (0.00-0.68); EOSINOPHILS PERCENT AUTO 3 % (0-6); Hematocrit 38.2 % (33.0-51.0); Hemoglobin 12.5 g/dL (11.5-16.0); IMMATURE GRAN ABSOLUTE AUTO 0.03 K/mm3 (0.00-0.10); IMMATURE GRAN PERCENT AUTO 0 % (0-1); LYMPHOCYTES ABSOLUTE AUTO 3.38 K/mm3 (0.84-5.20); LYMPHOCYTES PERCENT AUTO 38 % (21-46); MONOCYTES ABSOLUTE AUTO 0.52 K/mm3 (0.16-1.47); MONOCYTES PERCENT AUTO 6 % (4-13); Mean Corpuscular HGB 27.8 pg (26.0-34.0); Mean Corpuscular HGB Conc 32.7 g/dL (31.5-36.5); Mean Corpuscular Volume 85 fL (80-100); NEUTROPHILS ABSOLUTE AUTO 4.58 K/mm3 (1.96-9.15); NEUTROPHILS PERCENT AUTO 52 % (41-73); Platelet Count 257 K/mm3 (150-400); RDW Coefficient Variation 13.2 % (11.7-14.2); RDW Standard Deviation 40.8 fL (35.1-46.3); White Blood Cell Count 8.86 K/mm3 (4.00-11.30)
[2020-03-18 01:39] LABS: Alanine Aminotransfer (ALT/SGP 25 U/L (12-78); Albumin, Blood 3.9 g/dL (3.4-5.0); Alk Phos 104 U/L (50-136); Anion Gap 12 mmol/L (6-16); Aspartate Aminotrans (AST/SGOT 15 U/L (12-37); Bilirubin, Total 0.3 mg/dL (0.1-1.0); Blood Urea Nitrogen 11 mg/dL (8-24); Bun/Creatinine Ratio 21.3 (12.0-20.0); CO2, Blood 20 mmol/L (21-32); Calcium, Blood 8.8 mg/dL (8.5-10.1); Chloride, Blood 110 mmol/L (98-108); Creatinine, Blood 0.52 mg/dL (0.40-1.00); Globulin, Blood 3.8 g/dL (2.2-4.0); Glomerular Filtration Rate >60 (60-); Glucose, Blood 151 mg/dL (70-99); Potassium, Blood 3.2 mmol/L (3.5-5.5); Sodium, Blood 142 mmol/L (136-145); Total Protein, Blood 7.7 g/dL (6.4-8.2)
[2020-03-18 02:00] LABS: Ethanol (Alcohol), Blood, Med 42 mg/dL
[2020-03-18] MEDS ORDERED: NAPR500 PO (02:08)
[2020-03-18 02:51] LABS: CHOL/HDL RATIO 6.2; Cholesterol 306 mg/dL (50-200); HDL Cholesterol 49 mg/dL (>39); LDL/HDL RATIO Unable to Calculate; Low Density Lipoprotein Chol Unable to Calculate mg/dL (0-110); Triglycerides 532 mg/dL (30-140); Very Low Density Lipoprot Chol Unable to Calculate mg/dL (6-28)
[2020-03-18] MEDS ORDERED: BENADRYL25 MG PO (03:40)
--- NOTE | 2020-03-18 03:41 | NUR ---
ADMITTED TO FLOOR ARRIVED TO FLOOR AT 0320 BY STRETCHER. RECIEVED REPORT FROM ERIKA SANCHEZ. SHOWED PT HOW TO USE CALL LIGHT & ORIENTED TO ROOM.
--- NOTE | 2020-03-18 06:33 | NUR ---
SHIFT SUMMARY AOX4. VSS, EXCEPT ELEVATED BP WHEN PAIN LEVEL INCREASES. REPORTED NAUSEA, MEDICATED 1X W/ZOFRAN & STATES RELIEF. REPORTS 9-10 TIGHT PRESSURE PAIN IN LUQ ABD UNDER BREAST RAIDIATING TO BACK, MEDICATED 2X W/2MG DILAUDID, PAIN DECREASES TO 6-7/10. NPO EXCEPT SIPS OF WATER W/MEDS. PT REPORTS SHE DRANK 4 1/2 BEERS YESTERDAY & HAS BEEN DRINKING THE PAST 2 DAYS BECAUSE SHE HAS FELT STRESSED OUT. REPORTS HX ANXIETY & PANIC ATTACKS. DENIES DYSPNEA. CALL LIGHT IN REACH.
--- NOTE | 2020-03-18 19:30 | NUR ---
SHIFT SUMMARY: NO ACUTE CHANGES TO REPORT THIS SHIFT. PT A&O; CALM AND COOPERATIVE WITH CARE; INDEPENDENT IN ROOM. MEDICATED FOR PAIN & NAUSEA PER EMAR. NPO CONTINUING. REPORT GIVEN TO ONCOMING RN.
--- NOTE | 2020-03-19 04:19 | NUR ---
SHIFT SUMMARY A/O, ABLE TO MAKE NEEDS KNOWN. COOPERATIVE WITH CARE. CALLS AND ANSWERS QUESTIONS APPROPRIATELY. CONTINUES TO C/O PAIN/DISCOMFORT TO ABDOMEN; RATED 9/10, MEDICATED PER EMAR. INDPENDENT IN ROOM. HAS BEEN TACHYTCARDIC T/O NIGHT. BP CONTINUES TO IMPROVE. NO OTHER ACUTE CHANGES NOTED OVERNIGHT. APPEARED TO REST OFF AND ON. BED REMAINED IN LOWEST POSITION; ALARM ON. CALL LIGHT AND BELONGINGS WITHIN REACH. WCTM. REPORT TO ONCOMING RN.
[2020-03-19 05:39] LABS: Anion Gap 6 mmol/L (6-16); Blood Urea Nitrogen 7 mg/dL (8-24); Bun/Creatinine Ratio 14.8 (12.0-20.0); CO2, Blood 24 mmol/L (21-32); Calcium, Blood 8.1 mg/dL (8.5-10.1); Chloride, Blood 108 mmol/L (98-108); Creatinine, Blood 0.47 mg/dL (0.40-1.00); Glomerular Filtration Rate >60 (60-); Glucose, Blood 119 mg/dL (70-99); Sodium, Blood 138 mmol/L (136-145)
--- NOTE | 2020-03-19 16:58 | NUR ---
SHIFT SUMMARY PT HAS BEEN MEDICATED FOR EPIGASTRIC PAIN MULTIPLE TIMES THIS SHIFT. NO COMPLAINTS OF NAUSEA. PT WAS STARTED ON CLEAR LIQUID DIET THIS AFTERNOON AND IVF. THIS RN ENCOUARGED PT TO SIP SMALL AMOUNTS OF LIQUID. PT HAS NOT C/O INCREASED PAIN OR NAUSEA SINCE DRINKING SOME WATER. PT INDEPENDENT IN ROOM. NO ACUTE CHANGES. CALL LIGHT IN REACH. WILL CONTINUE TO MONITOR AND REPORT TO ONCOMING RN.
[2020-03-20 04:42] LABS: BASOPHILS ABSOLUTE AUTO 0.01 K/mm3 (0.00-0.23); BASOPHILS PERCENT AUTO 0 % (0-2); EOSINOPHILS ABSOLUTE AUTO 0.11 K/mm3 (0.00-0.68); EOSINOPHILS PERCENT AUTO 2 % (0-6); Hematocrit 31.5 % (33.0-51.0); Hemoglobin 10.1 g/dL (11.5-16.0); IMMATURE GRAN ABSOLUTE AUTO 0.01 K/mm3 (0.00-0.10); IMMATURE GRAN PERCENT AUTO 0 % (0-1); LYMPHOCYTES ABSOLUTE AUTO 1.15 K/mm3 (0.84-5.20); LYMPHOCYTES PERCENT AUTO 18 % (21-46); MONOCYTES ABSOLUTE AUTO 0.51 K/mm3 (0.16-1.47); MONOCYTES PERCENT AUTO 8 % (4-13); Mean Corpuscular HGB 28.1 pg (26.0-34.0); Mean Corpuscular HGB Conc 32.1 g/dL (31.5-36.5); Mean Corpuscular Volume 88 fL (80-100); Mean Platelet Volume 10.2 fL (9.1-12.4); NEUTROPHILS ABSOLUTE AUTO 4.49 K/mm3 (1.96-9.15); NEUTROPHILS PERCENT AUTO 71 % (41-73); Platelet Count 171 K/mm3 (150-400); RDW Coefficient Variation 13.4 % (11.7-14.2); RDW Standard Deviation 43.6 fL (35.1-46.3); Red Blood Cell Count 3.59 M/mm3 (3.80-5.20); White Blood Cell Count 6.28 K/mm3 (4.00-11.30)
[2020-03-20 05:05] LABS: Alanine Aminotransfer (ALT/SGP 230 U/L (12-78); Albumin, Blood 2.9 g/dL (3.4-5.0); Albumin/Globulin Ratio 0.9 (0.8-1.8); Alk Phos 175 U/L (50-136); Anion Gap 5 mmol/L (6-16); Aspartate Aminotrans (AST/SGOT 177 U/L (12-37); Bilirubin, Total 4.9 mg/dL (0.1-1.0); Blood Urea Nitrogen 9 mg/dL (8-24); Bun/Creatinine Ratio 19.5 (12.0-20.0); CO2, Blood 27 mmol/L (21-32); Calcium, Blood 8.1 mg/dL (8.5-10.1); Chloride, Blood 106 mmol/L (98-108); Creatinine, Blood 0.46 mg/dL (0.40-1.00); Globulin, Blood 3.4 g/dL (2.2-4.0); Glomerular Filtration Rate >60 (60-); Glucose, Blood 95 mg/dL (70-99); Potassium, Blood 3.7 mmol/L (3.5-5.5); Sodium, Blood 138 mmol/L (136-145); Total Protein, Blood 6.3 g/dL (6.4-8.2)
--- NOTE | 2020-03-20 06:16 | NUR ---
SHIFT SUMMARY A/O, ABLE TO MAKE NEEDS KNOWN. COOPERATIVE WITH CARE. CALLS AND ANSWERS QUESTIONS APPROPRIATELY. C/O PAIN/DISCOMFORT TO L EPIGASTRIC REGION; MEDICATED PER EMAR T/O SHIFT. APPEARED TO REST OFF AND ON. INDEPENDENT IN THE ROOM. VSS/AFEBRILE. NO ACUTE CHANGES NOTED OVERNIGHT. BED REMAINS IN LOWEST POSITION. CALL LIGHT AND BELONGINGS WITHIN REACH. WCTM. REPORT TO ONCOMING RN.
--- NOTE | 2020-03-20 07:14 | NUR ---
ASSUMED CARE: PT SITTING UPRIGHT IN BED BUT LETHARGIC, FALLING ASLEEP DURING CONVERSATION. NO ACUTE NEEDS OR CONCERNS AT THIS TIME.
--- NOTE | 2020-03-20 12:00 | NUR ---
DISCUSSED WITH DR MUELLER PT'S FREQUENT NEED FOR PAIN MEDS. SEE NEW ORDERS. DR AWARE OF PT'S JAUNDICE AND INCREASED LFT'S. NEW ORDERS FOR ULTRASOUND. NPO FOR LUNCH. SIGN AT DOOR.
--- NOTE | 2020-03-20 17:37 | NUR ---
SHIFT SUMMARY: ABDOMINAL ULTRASOUND COMPLETED FOR INCREASED LFTS AND JAUNDICE. MEDICATED FOR PAIN MULTIPLE TIMES THIS SHIFT, PT STATES TORADOL SEEMS TO WORK WELL, DILAUDID FOR BREAKTHROUGH PAIN. FRIEND AT BEDSIDE. INDEPENDENT IN ROOM. DENIES FURTHER NEEDS OR CONCERNS.
--- NOTE | 2020-03-21 04:24 | NUR ---
SHIFT SUMMARY ASSUMED CARE OF PT AT 1900. PT IS A/OX4, DENIES N/T IN EXTREMITES. HEART SOUNDS REGULAR, LUNG SOUNDS CLEAR, DENIES SOB/CP AT THIS TIME. PT C/O PAIN IN HER ABD/ BACK T/O THE NIGHT. PT C/O HER NEW PAIN REGIME STATING THAT IT WASNT ENOUGH PAIN MDICATION FOR HOW SHE FELT. PT WAS ABLE TO SLEEPT FROM [id number]. PT IS INDEPENDENT IN ROOM. NO ACUTE EVENTS DURING THE NIGHT. CALL LIGHT IN REACH, BED IN LOWEST POSTION, WILL CONTINUE TO MONITOR UNTIL DAYSHIFT NURSE ARRIVES.
[2020-03-21 05:54] LABS: BASOPHILS ABSOLUTE AUTO 0.02 K/mm3 (0.00-0.23); BASOPHILS PERCENT AUTO 0 % (0-2); EOSINOPHILS ABSOLUTE AUTO 0.14 K/mm3 (0.00-0.68); EOSINOPHILS PERCENT AUTO 3 % (0-6); Hematocrit 28.8 % (33.0-51.0); Hemoglobin 9.4 g/dL (11.5-16.0); IMMATURE GRAN ABSOLUTE AUTO 0.02 K/mm3 (0.00-0.10); IMMATURE GRAN PERCENT AUTO 0 % (0-1); LYMPHOCYTES ABSOLUTE AUTO 1.45 K/mm3 (0.84-5.20); LYMPHOCYTES PERCENT AUTO 26 % (21-46); MONOCYTES ABSOLUTE AUTO 0.36 K/mm3 (0.16-1.47); MONOCYTES PERCENT AUTO 6 % (4-13); Mean Corpuscular HGB 28.3 pg (26.0-34.0); Mean Corpuscular HGB Conc 32.6 g/dL (31.5-36.5); Mean Corpuscular Volume 87 fL (80-100); Mean Platelet Volume 10.4 fL (9.1-12.4); NEUTROPHILS ABSOLUTE AUTO 3.62 K/mm3 (1.96-9.15); NEUTROPHILS PERCENT AUTO 65 % (41-73); Platelet Count 181 K/mm3 (150-400); RDW Coefficient Variation 13.6 % (11.7-14.2); RDW Standard Deviation 43.2 fL (35.1-46.3); Red Blood Cell Count 3.32 M/mm3 (3.80-5.20); White Blood Cell Count 5.61 K/mm3 (4.00-11.30)
[2020-03-21 06:37] LABS: Alanine Aminotransfer (ALT/SGP 139 U/L (12-78); Albumin, Blood 2.4 g/dL (3.4-5.0); Albumin/Globulin Ratio 0.7 (0.8-1.8); Alk Phos 175 U/L (50-136); Anion Gap 6 mmol/L (6-16); Aspartate Aminotrans (AST/SGOT 53 U/L (12-37); Bilirubin, Total 1.5 mg/dL (0.1-1.0); Blood Urea Nitrogen 6 mg/dL (8-24); CO2, Blood 25 mmol/L (21-32); Calcium, Blood 7.6 mg/dL (8.5-10.1); Chloride, Blood 107 mmol/L (98-108); Globulin, Blood 3.4 g/dL (2.2-4.0); Glomerular Filtration Rate >60 (60-); Glucose, Blood 91 mg/dL (70-99); Potassium, Blood 2.9 mmol/L (3.5-5.5); Sodium, Blood 138 mmol/L (136-145); Total Protein, Blood 5.8 g/dL (6.4-8.2)
--- NOTE | 2020-03-21 17:38 | NUR ---
PATIENT IS A/OX4, UP INDEPENDENTLY IN ROOM. REPORTS SEVERE UPPER ABDOMINAL PAIN. MEDICATING WITH SCHEUDLED TORADOL AND DILAUDID Q3 HOURS. PATIENT RESTING WELL TODAY AND TOLERATED LOW FAT DIET FOR DINNER. N2 WITH 20K INFUSING AT 100ML/HR. SKIN INTACT. LUNGS CLEAR, ON RA. COOPERATIVE WITH CARE AND CALLS APPRORPRIATELY FOR ASSISTANCE.
--- NOTE | 2020-03-22 05:10 | NUR ---
SHIFT SUMMARY ASSUMED CARE OR PT AT 1900. PT IS A/OX4, DENIES N/T IN EXTREMITES. HEART SOUNDS REGULAR, LUNG SOUNDS DIMINISHED, ACTIVE SMOKER, DENIES CP/SOB AT THIS TIME. PT C/O PAIN IN HER UPPER ABD, PT STILL THINKS THAT HER PAIN REGIME DOESNT COVER HER PAIN, PT CALLS EVERY 3HRS FOR DILAUDID, DOESNT THINK THAT TORDOL HELPS HER. PT IS INDE TO THE BATHROOM. NO ACUTE EVENTS DURING THE NIGHT. PT SLEPT THREE HOURS IN BETWEEN EACH DOES OF PAIN MEDICATION. CALL LIGHT IN REACH, BED IN LOWEST POSTION, WILL CONTINUE TO MONITOR UNTIL DAYSHIFT NURSE ARRIVES.
[2020-03-22 05:51] LABS: BASOPHILS ABSOLUTE AUTO 0.03 K/mm3 (0.00-0.23); BASOPHILS PERCENT AUTO 1 % (0-2); EOSINOPHILS ABSOLUTE AUTO 0.17 K/mm3 (0.00-0.68); EOSINOPHILS PERCENT AUTO 3 % (0-6); Hematocrit 31.1 % (33.0-51.0); Hemoglobin 10.1 g/dL (11.5-16.0); IMMATURE GRAN ABSOLUTE AUTO 0.02 K/mm3 (0.00-0.10); IMMATURE GRAN PERCENT AUTO 0 % (0-1); LYMPHOCYTES PERCENT AUTO 31 % (21-46); MONOCYTES ABSOLUTE AUTO 0.46 K/mm3 (0.16-1.47); MONOCYTES PERCENT AUTO 7 % (4-13); Mean Corpuscular HGB 28.2 pg (26.0-34.0); Mean Corpuscular HGB Conc 32.5 g/dL (31.5-36.5); Mean Corpuscular Volume 87 fL (80-100); Mean Platelet Volume 10.2 fL (9.1-12.4); NEUTROPHILS ABSOLUTE AUTO 3.87 K/mm3 (1.96-9.15); NEUTROPHILS PERCENT AUTO 59 % (41-73); Platelet Count 249 K/mm3 (150-400); RDW Coefficient Variation 13.8 % (11.7-14.2); RDW Standard Deviation 43.1 fL (35.1-46.3); Red Blood Cell Count 3.58 M/mm3 (3.80-5.20); White Blood Cell Count 6.55 K/mm3 (4.00-11.30)
[2020-03-22 06:31] LABS: Alanine Aminotransfer (ALT/SGP 99 U/L (12-78); Albumin, Blood 2.6 g/dL (3.4-5.0); Albumin/Globulin Ratio 0.7 (0.8-1.8); Alk Phos 181 U/L (50-136); Anion Gap 4 mmol/L (6-16); Aspartate Aminotrans (AST/SGOT 25 U/L (12-37); Bilirubin, Total 0.7 mg/dL (0.1-1.0); Blood Urea Nitrogen 4 mg/dL (8-24); Bun/Creatinine Ratio 9.8 (12.0-20.0); CO2, Blood 27 mmol/L (21-32); Chloride, Blood 109 mmol/L (98-108); Creatinine, Blood 0.41 mg/dL (0.40-1.00); Globulin, Blood 3.6 g/dL (2.2-4.0); Glomerular Filtration Rate >60 (60-); Glucose, Blood 96 mg/dL (70-99); Sodium, Blood 140 mmol/L (136-145); Total Protein, Blood 6.2 g/dL (6.4-8.2)
[2020-03-22] MEDS ORDERED: Nicoderm Cq1 EAC1 TOP (12:28)
[2020-03-22] MEDS ORDERED: Carafate1 GM/10 ML PO (12:29)
[2020-03-22] MEDS ORDERED: MIRALAX17 GM PO (12:29)
[2020-03-22] MEDS ORDERED: Percocet 10-321 EACH PO (12:30)
--- NOTE | 2020-03-22 13:06 | NUR ---
PATIENT D/C'D TO HOME. RX MEDICATIONS FAXED TO [facility] AND HARD SCRIPT FOR PERCOCET GIVEN TO PATIENT. DC INSTRUCTIONS AND EDUCATION DISCUSSED WITH PATIENT AND COPY PROVIDED. PATIENT DENIES ANY FURHTER QUESTIONS OR CONCERNS.
== END 2020-03-22 13:06 | disposition home or self-care (01) | DRG 439 ==
LOC: ER 00:41 → MEDS 02:28
PROVIDERS: Emergency Medicine; Internal Medicine; ADMIT Internal Medicine
DX: K85.20 Alcohol induced acute pancreatitis without necrosis or infection (principal); F10.180 Alcohol abuse with alcohol-induced anxiety disorder; E78.00 Pure hypercholesterolemia, unspecified; E78.5 Hyperlipidemia, unspecified; E87.6 Hypokalemia; F10.20 Alcohol dependence, uncomplicated; F17.210 Nicotine dependence, cigarettes, uncomplicated; F32.9 Major depressive disorder, single episode, unspecified; K21.9 Gastro-esophageal reflux disease without esophagitis; E78.1 Pure hyperglyceridemia; K86.0 Alcohol-induced chronic pancreatitis
CPT/HCPCS: 36415; 74176; 76705; 80048; 80053; 80061; 83690; 85025; 96374; 96375; 96376; 99285-25; A9270; G0480; J1170; J1650; J1885; J2405; J3480; J7030; Q0177

== ENCOUNTER 2020-08-02 18:44 | Inpatient (IN) | payer BC, OTHER ==
[~2020-08-02] VITALS: Ht 170.2 cm; Wt 81.7 kg
[~2020-08-02 18:44] MED LIST changes: +BENADRYL25 MG PO; +Carafate1 GM/10 ML PO; +HYDPAM25 PO; +MIRALAX17 GM PO; +NAPR500 PO; +Nicoderm Cq1 EAC1 TOP; +Percocet 10-321 EACH PO
[2020-08-02 19:22] LABS: BASOPHILS ABSOLUTE AUTO 0.05 K/mm3 (0.00-0.23); BASOPHILS PERCENT AUTO 0 % (0-2); EOSINOPHILS ABSOLUTE AUTO 0.12 K/mm3 (0.00-0.68); EOSINOPHILS PERCENT AUTO 1 % (0-6); Hematocrit 39.3 % (33.0-51.0); Hemoglobin 13.1 g/dL (11.5-16.0); IMMATURE GRAN ABSOLUTE AUTO 0.03 K/mm3 (0.00-0.10); IMMATURE GRAN PERCENT AUTO 0 % (0-1); LYMPHOCYTES ABSOLUTE AUTO 2.44 K/mm3 (0.84-5.20); LYMPHOCYTES PERCENT AUTO 22 % (21-46); MONOCYTES ABSOLUTE AUTO 0.59 K/mm3 (0.16-1.47); MONOCYTES PERCENT AUTO 5 % (4-13); Mean Corpuscular HGB 28.3 pg (26.0-34.0); Mean Corpuscular HGB Conc 33.3 g/dL (31.5-36.5); Mean Corpuscular Volume 85 fL (80-100); Mean Platelet Volume 9.9 fL (9.1-12.4); NEUTROPHILS ABSOLUTE AUTO 8.04 K/mm3 (1.96-9.15); NEUTROPHILS PERCENT AUTO 71 % (41-73); Platelet Count 262 K/mm3 (150-400); RDW Standard Deviation 39.8 fL (35.1-46.3); Red Blood Cell Count 4.63 M/mm3 (3.80-5.20); White Blood Cell Count 11.27 K/mm3 (4.00-11.30)
[2020-08-02 19:40] LABS: Alanine Aminotransfer (ALT/SGP 29 U/L (12-78); Albumin, Blood 3.9 g/dL (3.4-5.0); Albumin/Globulin Ratio 1.1 (0.8-1.8); Alk Phos 105 U/L (50-136); Anion Gap 8 mmol/L (6-16); Aspartate Aminotrans (AST/SGOT 18 U/L (12-37); Bilirubin, Total 0.6 mg/dL (0.1-1.0); Blood Urea Nitrogen 12 mg/dL (8-24); Bun/Creatinine Ratio 21.4 (12.0-20.0); CO2, Blood 24 mmol/L (21-32); Calcium, Blood 9.2 mg/dL (8.5-10.1); Chloride, Blood 108 mmol/L (98-108); Creatinine, Blood 0.56 mg/dL (0.40-1.00); Globulin, Blood 3.6 g/dL (2.2-4.0); Glomerular Filtration Rate >60 (60-); Glucose, Blood 112 mg/dL (70-99); Potassium, Blood 4.2 mmol/L (3.5-5.5); Sodium, Blood 140 mmol/L (136-145); Total Protein, Blood 7.5 g/dL (6.4-8.2)
[2020-08-02 23:32] LABS: Source, Urine Clean Catch
[2020-08-02 23:36] LABS: Appearance, Urine Clear (Clear); Bilirubin, Urine Neg (Neg); Blood, Urine Neg (Neg); Color, Urine Amber (P-Yellow); Glucose Qualitative, Urine Neg (Neg); Ketones, Urine Neg (Neg); Leukocyte Esterase, Urine Neg (Neg); Nitrite, Urine Neg (Neg); Protein, Urine 1+ (Neg); Specific Gravity, Urine 1.025 (1.003-1.022); Urobilinogen, Urine NORM (Normal)
--- NOTE | 2020-08-03 01:35 | NUR ---
RECEIVED REPORT FROM JOHNNA MOROCHO RN. PT TRANSPORTED TO MEDICAL FLOOR VIA W/C, AMBULATED SELF TO BED, STEADY GAIT. VS TAKEN. PT REPORTING ABD PAIN 05/28. SITUATED IN ROOM, ORIENTED TO UNIT. CALL LIGHT, POSSESSIONS IN REACH, BED IN LOW POSITION. WCTM.
--- NOTE | 2020-08-03 02:14 | NUR ---
SPOKE TO DR. HOLM REGARDING PT'S PAIN MANAGEMENT WITH PREVIOUS HOSPITALIZATIONS. ORDERS RECEIVED. WCTM.
[2020-08-03 02:17] LABS: CHOL/HDL RATIO 4.5; Cholesterol 299 mg/dL (50-200); HDL Cholesterol 67 mg/dL (>39); LDL/HDL RATIO 2.7; Low Density Lipoprotein Chol 178 mg/dL (0-110); Triglycerides 268 mg/dL (30-140); Very Low Density Lipoprot Chol 53 mg/dL (6-28)
--- NOTE | 2020-08-03 07:25 | NUR ---
SHIFT SUMMARY PT RESTING COMFORTABLY, NO S/S ACUTE DISTRESS NOTED. NO ACUTE CHANGES IN CONDITION SINCE ARRIVAL TO MEDICAL FLOOR. PAIN AND NAUSEA CONTROLLED WITH MEDS PER EMAR, EFFECTIVE. NPO X MEDS AND ICE CHIPS, TOLERATING WELL. VS REVIEWED. PT DENIES NEEDS AT THIS TIME. CALL LIGHT, POSSESSIONS IN REACH, REPORT GIVEN TO DENNISE,RNS,
--- NOTE | 2020-08-03 18:19 | NUR ---
SHIFT SUMMARY PT AOX4. CALLS APPROPRIATELY. PT VERY PAINFUL TODAY; MEDICATED WITH DILAUDID 1MG Q2 PRN X6. CALLEED THE DR; PT PAIN IS NOT CONTROLLED; RECEIVED A FENTANYL X1; AND PT STATED FENTANYL DOES NOT WORK FOR HER. PT WAS ALSO NAUSEATED AND MEDICATED WITH ZOFRAN NEEDED TODAY. PT BED IS IN THE LOWEST POSITION AND CALL LIGHTS WITHIN REACH,
--- NOTE | 2020-08-04 06:12 | NUR ---
SHIFT SUMMARY- PT. A&O, INDEP IN ROOM. SLEPT ON/OFF DURING THE NIGHT, NO APPARENT DISTRESS NOTED. PT. C/O ABD PAIN AND N/V. MEDICATED PER EMAR SEVERAL TIMES T/O THE SHIFT WITH MINIMAL RELIEF. MINIMALLY TOLERTING CL DIET. VSS. CALL LIGHT WITHIN REACH AND SIDE RAILS UPX2. WILL CONT TO MONITOR.
--- NOTE | 2020-08-04 15:17 | NUR ---
PT BP HAS BEEN ELEVATED TODAY AND HR. LEFT A MESSAGE TO DR ZAVALA.
--- NOTE | 2020-08-04 16:55 | NUR ---
SHIFT SUMMARY PT AOX4; CALLS APPROPRIATELY. PT VERY PAINFUL ON HER MID ABDOMEN TODAY-HERE FOR RECURRENT ACUTE PANCREATITIS; AND VERY NAUSEATED. DR AWARE; AND MEDICATED PER DR CHO. PHENERGAN SEEMS TO BE WORKING VS ZOFRAN FOR THE PER PT. BED IS THE LOWEST POSITION; CALL LIGHTS WITHIN REACH.
--- NOTE | 2020-08-04 22:53 | NUR ---
WAS RESTING QUIETLY WHEN SHIFT COMMENCED, THEN LATER WENT FOR A "WALK" TO HELP WITH HER PAIN. HAS RECEIVED ANALGESICS FOR ABD AND BACK PAIN -SEE MAR FOR DETAILS. CALL LIGHT IN REACH
--- NOTE | 2020-08-05 03:40 | NUR ---
SHIFT SUMMARY AWAKE AT INTERVALS. REQUESTING ANALGSICS ABOUT EVERY 2 HRS - SEE MAR FOR DETAILS. LACTATED RINGERS INFUSING AT 100 ML/HR. CALL LIGHT IN REACH.
[2020-08-05 05:59] LABS: Albumin, Blood 3.1 g/dL (3.4-5.0); Anion Gap 4 mmol/L (6-16); Blood Urea Nitrogen 7 mg/dL (8-24); Bun/Creatinine Ratio 12.7 (12.0-20.0); CO2, Blood 30 mmol/L (21-32); Calcium, Blood 8.8 mg/dL (8.5-10.1); Chloride, Blood 105 mmol/L (98-108); Creatinine, Blood 0.55 mg/dL (0.40-1.00); Glomerular Filtration Rate >60 (60-); Glucose, Blood 90 mg/dL (70-99); Phosphorus, Blood 2.2 mg/dL (2.5-4.9); Potassium, Blood 3.4 mmol/L (3.5-5.5); Sodium, Blood 139 mmol/L (136-145)
--- NOTE | 2020-08-05 18:54 | NUR ---
ALERT. ORIENTED. MEDICATED OFTEN FOR PAIN WITH 3 DIFFERENT PAIN MEDS. STEADY GAIT. INDEPENDENT IN ROOM. ABLE TO GO OUTSIDE FOR SMOKE. UNLABORED RESPIRATIONS. WCTM
--- NOTE | 2020-08-06 03:19 | NUR ---
SHIFT SUMMARY: 35 Y/O FEMALE RESTED COMFORTABLY 1/2 SHIFT; PT C/O ABD PAIN 04/27 WITH DILAUDID 1MG IVP GIVEN EVERY 2-3 HOURS THIS SHIFT WITH RELIEF FELT; PT ALSO HAD NAUSEA WITHOUT EMESIS WITH ZOFRAN 4MG IVP X 1 GIVEN WITH RELIEF FELT; HAPPY AND COOPERATIVE WITH STAFF THIS SHIFT; NO STOOLS; VOIDING WITHOUT DIFFICULTY; BED LOW POSITION WITH CALL LIGHT AT SIDE.
--- NOTE | 2020-08-06 06:44 | NUR ---
0630 PT ADMITTED TO ROOM 309 PER CART FROM ER; REPORT RECEIVED DANIEL GAVIN IN ER; PT ASSISTED INTO BED VIA SLIDER SHEET X 3 ASSIST; ER NURSE STATED, "[facility] TESTED FOR COVID SO WE DID NOT THERE WAS AN OUTBREAK AT THEIR FACILITY". THIS NURSE ADVISED STEFANO VALDIVIA RN, CHARGE NURSE OF NO COVID TEST PERFORMED AT [facility] TODAY.
--- NOTE | 2020-08-06 18:35 | NUR ---
ALERT. ORIENTED. MEDICATED MULTIPLE TIMES FOR PAIN AND NAUSEA T/O DAY. INDEPENDENT IN ROOM. STEADY GAIT DOWN HALLWAY TO OUTSIDE FOR SMOKE. IV PATENT. INDEPENDENT IN SHOWER. UNLABORED RESPIRATIONS. TM
--- NOTE | 2020-08-06 23:08 | NUR ---
2001 35 Y/O FEMALE CONTINUES C/O ABD PAIN WITH DILAUDID 1MG IVP GIVEN WITH RELIEF FELT; UP AD RONY IN ROOM WITHOUT DIFFICULTY; DENIES NAUSEA OR DIARRHEA.
--- NOTE | 2020-08-07 02:50 | NUR ---
SHIFT SUMMARY: 35 Y/O FEMALE HAD RESTLESS NIGHT AT TIMES WITH PATIENT C/O ABD PAIN RATED 8/10 WITH DILAUDID 1MG IVP AND ROXICODONE 10MG TWICE WITH MODERATE RELIEF FELT; PT UP AD RONY WITH GAIT SLOW AND STEADY IN ROOM AND HALLWAY; DENIES NAUSEA OR DIARRHEA; TOLERATING CLEAR LIQUID DIET WELL; BED LOW POSITION WITH CALL LIGHT AT SIDE.
[2020-08-07 06:14] LABS: Albumin, Blood 2.9 g/dL (3.4-5.0); Anion Gap 6 mmol/L (6-16); Blood Urea Nitrogen 3 mg/dL (8-24); Bun/Creatinine Ratio 5.5 (12.0-20.0); CO2, Blood 31 mmol/L (21-32); Calcium, Blood 8.6 mg/dL (8.5-10.1); Chloride, Blood 107 mmol/L (98-108); Creatinine, Blood 0.55 mg/dL (0.40-1.00); Glomerular Filtration Rate >60 (60-); Glucose, Blood 92 mg/dL (70-99); Phosphorus, Blood 3.4 mg/dL (2.5-4.9); Potassium, Blood 2.9 mmol/L (3.5-5.5); Sodium, Blood 144 mmol/L (136-145)
--- NOTE | 2020-08-07 17:21 | NUR ---
PT PLEASSNT TODAY/ DID WALK OUT TO SMOKE TWICE TODAY ON MY SHIFT. PAIN MANAGEDW WITH AVAIL MEDS. PER EMAR. DID DISCUSS TRIMMING BACK IV PAIN MED TO MOVE TO PO PAIN MED. STATES WILLING TO TRY NEXT DOSE AT HALF DOSE TO SEE IF CAN TOLERATES. NO NEW CNCERNS AT THIS TIME. BED IN LOW POSITION, CALL LITE IN REACH, CALLS APPROP
--- NOTE | 2020-08-08 00:10 | NUR ---
08/07/201999 RESTING COMFORTABLY IN BED; CHEERFUL.
--- NOTE | 2020-08-08 03:09 | NUR ---
SHIFT SUMMARY; 33 Y/O OBESE FEMALE RESTED COMFORTABLY ALL SHIFT; PT CONTINUES TO HAVE INTERMITTENT ABD PAIN RATED 8/10 WITH DILAUDID 1MG IVP AND ROXICODONE 10MG PO GIVEN WITH ADEQUATE RELIEF NOTED; DENIES NAUSEA OR DIARRHEA; EAGER TO RETURN HOME TODAY; BED LOW POSITION WITH CALL LIGHT AT SIDE.
[2020-08-08 05:50] LABS: Magnesium, Blood 1.9 mg/dL (1.6-2.4)
[2020-08-08 05:51] LABS: Albumin, Blood 3.2 g/dL (3.4-5.0); Anion Gap 4 mmol/L (6-16); Blood Urea Nitrogen 4 mg/dL (8-24); Bun/Creatinine Ratio 6.5 (12.0-20.0); CO2, Blood 30 mmol/L (21-32); Calcium, Blood 8.9 mg/dL (8.5-10.1); Chloride, Blood 106 mmol/L (98-108); Creatinine, Blood 0.61 mg/dL (0.40-1.00); Glomerular Filtration Rate >60 (60-); Glucose, Blood 99 mg/dL (70-99); Phosphorus, Blood 2.9 mg/dL (2.5-4.9); Potassium, Blood 3.5 mmol/L (3.5-5.5); Sodium, Blood 140 mmol/L (136-145)
[2020-08-08] MEDS ORDERED: ACET325 PO (15:40)
[2020-08-08] MEDS ORDERED: ONDA4ODT MM (15:53)
[2020-08-08] MEDS ORDERED: METO25 PO (15:53)
[2020-08-08] MEDS ORDERED: OXAYDO5 M1 PO (15:54)
[2020-08-08] MEDS ORDERED: LOPID PO (15:55)
[2020-08-08] MEDS ORDERED: PROM25 PO (15:55)
--- NOTE | 2020-08-08 17:00 | NUR ---
DISCHARGE INSTRUCTIONS COMPLETED AND DISCUSSED WITH PT EXPRESSING UNDERSTANDING. OXYCODONE SCRIPT GIVEN TO PT FOR FILLING. WALKED HER PERSONAL BELONGINGS TO HER CAR AND RETURNED. REPORTED THAT SHE CALLED A FRIEND TO COME GET HER AND THAT THE FRIEND WOULD BRING A LICENCED DOUGHMAKER TO DRIVE PTS CAR HOME FOR HER. REPORTED SHE WAS NOT GOING TO DRIVE HOME. TO [facility] BY AMBULATION.
== END 2020-08-08 16:50 | disposition home or self-care (01) | DRG 440 ==
LOC: ER 18:44 → MEDS 18:45
PROVIDERS: Emergency Medicine; Internal Medicine; ADMIT Family Medicine
DX: K85.20 Alcohol induced acute pancreatitis without necrosis or infection (principal); K86.0 Alcohol-induced chronic pancreatitis; E83.39 Other disorders of phosphorus metabolism; E87.6 Hypokalemia; F32.9 Major depressive disorder, single episode, unspecified; F41.9 Anxiety disorder, unspecified; K21.9 Gastro-esophageal reflux disease without esophagitis; K29.80 Duodenitis without bleeding; E78.00 Pure hypercholesterolemia, unspecified; E78.1 Pure hyperglyceridemia; F10.10 Alcohol abuse, uncomplicated; F17.210 Nicotine dependence, cigarettes, uncomplicated
CPT/HCPCS: 36415; 74177; 80053; 80061; 80069; 81025; 82330; 83690; 83735; 85025; 96374-59; 96375; 96376; 99285-25; A9270; A9270-GY; C9113; G0008; G0378; J1170; J2405; J2550; J3010; J7050; J7060; J7120; Q0177; Q2038; Q9967

== ENCOUNTER 2020-09-29 01:09 | Emergency (ER) | payer BC, OTHER ==
[~2020-09-29] VITALS: Ht 170.2 cm; Wt 78.0 kg
[~2020-09-29 01:09] MED LIST changes: +LOPID PO; +METO25 PO; +ONDA4ODT MM; +OXAYDO5 M1 PO
[2020-09-29 01:51] LABS: BASOPHILS ABSOLUTE AUTO 0.06 K/mm3 (0.00-0.23); BASOPHILS PERCENT AUTO 1 % (0-2); EOSINOPHILS ABSOLUTE AUTO 0.32 K/mm3 (0.00-0.68); EOSINOPHILS PERCENT AUTO 4 % (0-6); Hematocrit 35.7 % (33.0-51.0); Hemoglobin 11.8 g/dL (11.5-16.0); IMMATURE GRAN ABSOLUTE AUTO 0.02 K/mm3 (0.00-0.10); IMMATURE GRAN PERCENT AUTO 0 % (0-1); LYMPHOCYTES ABSOLUTE AUTO 3.52 K/mm3 (0.84-5.20); LYMPHOCYTES PERCENT AUTO 40 % (21-46); MONOCYTES ABSOLUTE AUTO 0.48 K/mm3 (0.16-1.47); MONOCYTES PERCENT AUTO 6 % (4-13); Mean Corpuscular HGB 27.6 pg (26.0-34.0); Mean Corpuscular HGB Conc 33.1 g/dL (31.5-36.5); Mean Corpuscular Volume 83 fL (80-100); Mean Platelet Volume 9.9 fL (9.1-12.4); NEUTROPHILS ABSOLUTE AUTO 4.31 K/mm3 (1.96-9.15); NEUTROPHILS PERCENT AUTO 50 % (41-73); Platelet Count 270 K/mm3 (150-400); RDW Coefficient Variation 13.3 % (11.7-14.2); RDW Standard Deviation 40.2 fL (35.1-46.3); Red Blood Cell Count 4.28 M/mm3 (3.80-5.20); White Blood Cell Count 8.71 K/mm3 (4.00-11.30)
[2020-09-29 02:04] LABS: Alanine Aminotransfer (ALT/SGP 25 U/L (12-78); Albumin, Blood 3.5 g/dL (3.4-5.0); Albumin/Globulin Ratio 1.1 (0.8-1.8); Alk Phos 85 U/L (50-136); Anion Gap 8 mmol/L (6-16); Aspartate Aminotrans (AST/SGOT 9 U/L (12-37); Bilirubin, Total 0.1 mg/dL (0.1-1.0); Blood Urea Nitrogen 13 mg/dL (8-24); Bun/Creatinine Ratio 25.1 (12.0-20.0); CO2, Blood 24 mmol/L (21-32); Calcium, Blood 8.6 mg/dL (8.5-10.1); Chloride, Blood 108 mmol/L (98-108); Creatinine, Blood 0.52 mg/dL (0.40-1.00); Globulin, Blood 3.3 g/dL (2.2-4.0); Glomerular Filtration Rate >60 (60-); Glucose, Blood 112 mg/dL (70-99); Potassium, Blood 3.9 mmol/L (3.5-5.5); Sodium, Blood 140 mmol/L (136-145); Total Protein, Blood 6.8 g/dL (6.4-8.2)
[2020-09-29 03:09] LABS: Source, Urine Clean Catch
[2020-09-29] MEDS ORDERED: Roxicodone5 MG PO (03:09)
[2020-09-29] MEDS ORDERED: ONDA4ODT MM (03:09)
[2020-09-29 03:11] LABS: Appearance, Urine Clear (Clear); Bilirubin, Urine Neg (Neg); Blood, Urine Neg (Neg); Color, Urine Yellow (P-Yellow); Glucose Qualitative, Urine Neg (Neg); Ketones, Urine Neg (Neg); Leukocyte Esterase, Urine 1+ (Neg); Nitrite, Urine Neg (Neg); Protein, Urine 1+ (Neg); Specific Gravity, Urine 1.025 (1.003-1.022); Urobilinogen, Urine NORM (Normal)
[2020-09-29 03:17] LABS: Bacteria Many /hpf; Calcium Oxalate Crystals Few /hpf; Mucus Heavy (0-Heavy); Red Blood Cells, Urine 0-2 /hpf (0-2); Squamous Epithelial Cells Many /hpf (Few); White Blood Cells, Urine 0-2 /hpf (0-5)
== END 2020-09-29 03:38 | disposition home or self-care (01) ==
LOC: ER 01:09
PROVIDERS: Emergency Medicine
DX: R10.13 Epigastric pain (principal); R11.0 Nausea; R10.12 Left upper quadrant pain; R10.11 Right upper quadrant pain; M54.9 Dorsalgia, unspecified; K21.9 Gastro-esophageal reflux disease without esophagitis; E78.5 Hyperlipidemia, unspecified; F32.9 Major depressive disorder, single episode, unspecified; F41.9 Anxiety disorder, unspecified; F17.210 Nicotine dependence, cigarettes, uncomplicated; Z87.19 Personal history of other diseases of the digestive system; Z90.49 Acquired absence of other specified parts of digestive tract; Z91.09 Other allergy status, other than to drugs and biological substances; Z88.5 Allergy status to narcotic agent; Z88.8 Allergy status to other drugs, medicaments and biological substances; Z79.899 Other long term (current) drug therapy
CPT/HCPCS: 36415; 80053; 81001; 83690; 85025; 87086; 96361; 96374; 96375; 99284-25; A9270; J2405; J3010; J7030

== ENCOUNTER 2021-03-08 23:57 | Emergency (ER) | payer OTHER ==
[~2021-03-08] VITALS: Ht 170.2 cm; Wt 86.2 kg
[2021-03-09 01:56] LABS: BASOPHILS ABSOLUTE AUTO 0.05 K/mm3 (0.00-0.23); BASOPHILS PERCENT AUTO 1 % (0-2); EOSINOPHILS ABSOLUTE AUTO 0.23 K/mm3 (0.00-0.68); EOSINOPHILS PERCENT AUTO 3 % (0-6); Hematocrit 36.5 % (33.0-51.0); Hemoglobin 12.2 g/dL (11.5-16.0); IMMATURE GRAN ABSOLUTE AUTO 0.02 K/mm3 (0.00-0.10); IMMATURE GRAN PERCENT AUTO 0 % (0-1); LYMPHOCYTES ABSOLUTE AUTO 3.15 K/mm3 (0.84-5.20); LYMPHOCYTES PERCENT AUTO 34 % (21-46); MONOCYTES ABSOLUTE AUTO 0.52 K/mm3 (0.16-1.47); MONOCYTES PERCENT AUTO 6 % (4-13); Mean Corpuscular HGB 26.9 pg (26.0-34.0); Mean Corpuscular HGB Conc 33.4 g/dL (31.5-36.5); Mean Corpuscular Volume 80 fL (80-100); Mean Platelet Volume 9.3 fL (9.1-12.4); NEUTROPHILS ABSOLUTE AUTO 5.24 K/mm3 (1.96-9.15); NEUTROPHILS PERCENT AUTO 57 % (41-73); Platelet Count 273 K/mm3 (150-400); RDW Coefficient Variation 12.8 % (11.7-14.2); RDW Standard Deviation 37.2 fL (35.1-46.3); Red Blood Cell Count 4.54 M/mm3 (3.80-5.20); White Blood Cell Count 9.21 K/mm3 (4.00-11.30)
[2021-03-09 02:13] LABS: Alanine Aminotransfer (ALT/SGP 43 U/L (12-78); Albumin, Blood 3.9 g/dL (3.4-5.0); Alk Phos 100 U/L (50-136); Anion Gap 7 mmol/L (6-16); Aspartate Aminotrans (AST/SGOT 18 U/L (12-37); Bilirubin, Total 0.3 mg/dL (0.1-1.0); Blood Urea Nitrogen 13 mg/dL (8-24); Bun/Creatinine Ratio 21.8 (12.0-20.0); CO2, Blood 24 mmol/L (21-32); Calcium, Blood 8.8 mg/dL (8.5-10.1); Chloride, Blood 102 mmol/L (98-108); Globulin, Blood 3.9 g/dL (2.2-4.0); Glomerular Filtration Rate >60 (60-); Glucose, Blood 116 mg/dL (70-99); Potassium, Blood 3.4 mmol/L (3.5-5.5); Sodium, Blood 133 mmol/L (136-145); Total Protein, Blood 7.8 g/dL (6.4-8.2)
[2021-03-09 02:16] LABS: Source, Urine Clean Catch
[2021-03-09 02:20] LABS: Bilirubin, Urine Neg (Neg); Blood, Urine Neg (Neg); Glucose Qualitative, Urine Neg (Neg); Ketones, Urine Neg (Neg); Leukocyte Esterase, Urine Neg (Neg); Nitrite, Urine Neg (Neg); Protein, Urine Neg (Neg); Urobilinogen, Urine NORM (Normal); pH, Urine 6.5 (5.0-8.0)
[2021-03-09 02:24] LABS: Appearance, Urine Clear (Clear); Color, Urine Yellow (P-Yellow)
[2021-03-09 04:27] LABS: Troponin I <0.015 ng/mL (0.000-0.040)
[2021-03-09] MEDS ORDERED: Roxicodone5 MG PO (06:24)
== END 2021-03-09 06:40 | disposition home or self-care (01) ==
LOC: ER 23:57
PROVIDERS: Emergency Medicine
DX: R10.9 Unspecified abdominal pain (principal); E78.5 Hyperlipidemia, unspecified; K21.9 Gastro-esophageal reflux disease without esophagitis; Z88.5 Allergy status to narcotic agent; Z91.09 Other allergy status, other than to drugs and biological substances; Z79.899 Other long term (current) drug therapy; Z87.891 Personal history of nicotine dependence
CPT/HCPCS: 36415; 71045; 80053; 81003; 81025; 83690; 84484; 85025; 93005; 93010; 96374; 99284; A9270; J1170; J7120

== ENCOUNTER 2021-04-03 18:47 | Emergency (ER) | payer OTHER ==
[~2021-04-03] VITALS: Ht 170.2 cm; Wt 79.8 kg
[2021-04-03 20:01] LABS: BASOPHILS ABSOLUTE AUTO 0.04 K/mm3 (0.00-0.23); BASOPHILS PERCENT AUTO 0 % (0-2); EOSINOPHILS ABSOLUTE AUTO 0.12 K/mm3 (0.00-0.68); EOSINOPHILS PERCENT AUTO 1 % (0-6); Hematocrit 35.9 % (33.0-51.0); Hemoglobin 12.1 g/dL (11.5-16.0); IMMATURE GRAN ABSOLUTE AUTO 0.03 K/mm3 (0.00-0.10); IMMATURE GRAN PERCENT AUTO 0 % (0-1); LYMPHOCYTES ABSOLUTE AUTO 1.77 K/mm3 (0.84-5.20); LYMPHOCYTES PERCENT AUTO 17 % (21-46); MONOCYTES ABSOLUTE AUTO 0.54 K/mm3 (0.16-1.47); MONOCYTES PERCENT AUTO 5 % (4-13); Mean Corpuscular HGB 27.9 pg (26.0-34.0); Mean Corpuscular HGB Conc 33.7 g/dL (31.5-36.5); Mean Corpuscular Volume 83 fL (80-100); Mean Platelet Volume 9.9 fL (9.1-12.4); NEUTROPHILS ABSOLUTE AUTO 8.15 K/mm3 (1.96-9.15); NEUTROPHILS PERCENT AUTO 77 % (41-73); Platelet Count 222 K/mm3 (150-400); RDW Coefficient Variation 13.2 % (11.7-14.2); RDW Standard Deviation 39.7 fL (35.1-46.3); Red Blood Cell Count 4.34 M/mm3 (3.80-5.20); White Blood Cell Count 10.65 K/mm3 (4.00-11.30)
[2021-04-03 20:18] LABS: Alanine Aminotransfer (ALT/SGP 50 U/L (12-78); Albumin, Blood 3.8 g/dL (3.4-5.0); Alk Phos 87 U/L (50-136); Anion Gap 9 mmol/L (6-16); Aspartate Aminotrans (AST/SGOT 32 U/L (12-37); Bilirubin, Total 0.3 mg/dL (0.1-1.0); Blood Urea Nitrogen 15 mg/dL (8-24); Bun/Creatinine Ratio 25.9 (12.0-20.0); CO2, Blood 20 mmol/L (21-32); Calcium, Blood 8.8 mg/dL (8.5-10.1); Chloride, Blood 108 mmol/L (98-108); Creatinine, Blood 0.58 mg/dL (0.40-1.00); Globulin, Blood 3.9 g/dL (2.2-4.0); Glomerular Filtration Rate >60 (60-); Glucose, Blood 153 mg/dL (70-99); Potassium, Blood 3.7 mmol/L (3.5-5.5); Sodium, Blood 137 mmol/L (136-145); Total Protein, Blood 7.7 g/dL (6.4-8.2)
[2021-04-03] MEDS ORDERED: ONDA4ODT MM (22:35)
[2021-04-03] MEDS ORDERED: Roxicodone5 MG PO (22:35)
== END 2021-04-03 23:21 | disposition home or self-care (01) ==
LOC: ER 18:47
PROVIDERS: Emergency Medicine
DX: K86.1 Other chronic pancreatitis (principal); Z79.899 Other long term (current) drug therapy; Z91.09 Other allergy status, other than to drugs and biological substances; Z88.5 Allergy status to narcotic agent; Z88.8 Allergy status to other drugs, medicaments and biological substances
CPT/HCPCS: 36415; 71045; 80053; 83690; 85025; 93005; 93010; 96374; 96375; 99284-25; A9270; J1170; J2405; J7120

== ENCOUNTER 2021-05-04 08:14 | Inpatient (IN) | payer BC, OTHER ==
[~2021-05-04] VITALS: Ht 170.2 cm; Wt 80.2 kg
[2021-05-04 09:00] LABS: BASOPHILS ABSOLUTE AUTO 0.03 K/mm3 (0.00-0.23); BASOPHILS PERCENT AUTO 0 % (0-2); EOSINOPHILS ABSOLUTE AUTO 0.13 K/mm3 (0.00-0.68); EOSINOPHILS PERCENT AUTO 2 % (0-6); Hematocrit 35.6 % (33.0-51.0); IMMATURE GRAN ABSOLUTE AUTO 0.03 K/mm3 (0.00-0.10); IMMATURE GRAN PERCENT AUTO 0 % (0-1); LYMPHOCYTES ABSOLUTE AUTO 1.92 K/mm3 (0.84-5.20); LYMPHOCYTES PERCENT AUTO 25 % (21-46); MONOCYTES ABSOLUTE AUTO 0.46 K/mm3 (0.16-1.47); MONOCYTES PERCENT AUTO 6 % (4-13); Mean Corpuscular HGB Conc 33.7 g/dL (31.5-36.5); Mean Corpuscular Volume 80 fL (80-100); Mean Platelet Volume 9.8 fL (9.1-12.4); NEUTROPHILS PERCENT AUTO 67 % (41-73); Platelet Count 246 K/mm3 (150-400); RDW Coefficient Variation 12.9 % (11.7-14.2); RDW Standard Deviation 37.3 fL (35.1-46.3); Red Blood Cell Count 4.44 M/mm3 (3.80-5.20); White Blood Cell Count 7.77 K/mm3 (4.00-11.30)
[2021-05-04 09:28] LABS: Alanine Aminotransfer (ALT/SGP 41 U/L (12-78); Albumin, Blood 3.9 g/dL (3.4-5.0); Alk Phos 114 U/L (50-136); Anion Gap 7 mmol/L (6-16); Aspartate Aminotrans (AST/SGOT 22 U/L (12-37); Bilirubin, Total 0.4 mg/dL (0.1-1.0); Blood Urea Nitrogen 12 mg/dL (8-24); Bun/Creatinine Ratio 20.2 (12.0-20.0); CO2, Blood 22 mmol/L (21-32); Calcium, Blood 8.9 mg/dL (8.5-10.1); Chloride, Blood 107 mmol/L (98-108); Creatinine, Blood 0.59 mg/dL (0.40-1.00); Globulin, Blood 3.8 g/dL (2.2-4.0); Glomerular Filtration Rate >60 (60-); Glucose, Blood 134 mg/dL (70-99); Potassium, Blood 3.3 mmol/L (3.5-5.5); Sodium, Blood 136 mmol/L (136-145); Total Protein, Blood 7.7 g/dL (6.4-8.2)
[2021-05-04 11:59] LABS: Triglycerides 411 mg/dL (30-140)
--- NOTE | 2021-05-04 16:56 | NUR ---
PATIENT WAS ADMITTED TO MEDICAL FLOOR THIS AFTERNOON. SHE COMPLAINED OF 10/10 ABDOMINAL PAIN INITIALLY AND STATED THAT FENTANYL DOES NOT WORK FOR HER AND THAT IF SHE COULDNT GET DILAUDID IV THEN SHE WOULD LEAVE AND GO TO A DIFFERENT HOSPITAL. DR. EISENBERG CALLED BY THIS RN AND NOTIFIED OF THE PATIENT'S PAIN AND REQUEST TO WHICH HE ORDERED IV DILAUDID. PATIENT ASKED TO SPEAK WITH THE PATIENT ADVOCATE. BELEN THE PATIENT ADVOCATE WAS CALLED BY KRISTA AND ASKED TO COME SPEAK WITH THE PATIENT. THE PATIENT WAS MEDICATED PER EMAR FOR PAIN WITH DILAUDID AND STATED HER PAIN WENT FROM 10/10 TO 6/10. PATIENT IS INDEPENDENT IN THE ROOM. WILL CONTINUE TO MONITOR
--- NOTE | 2021-05-04 18:06 | NUR ---
PATIENT C/O 10/10 PAIN. SHE CANNOT HAVE ANOTHER DOSE OF DILAUDID UNTIL 19:57. PATIENT TOLD THIS AND SHE ASKED THAT THE DOCTOR BE CALLED AND ASKED THAT THE FREQUENCY BE CHANGED. DR. ZAVALA CALLED AND NOTIFIED OF THE SITUATION, SHE ORDERED DILAUDED 0.5-1MG Q3H PRN FOR SEVER PAIN.
--- NOTE | 2021-05-04 18:17 | NUR ---
PATIENT REFUSED DILAUDED 0.5-1MG IV Q3H PRN. SHE ASKED THAT DR. ZAVALA BE CALLED BACK AND STATES DILAUDED 1-2MG IV Q2H PRN IS THE ONLY WAY HER PAIN WILL BE RELIEVED. DR. ZAVALA ORDERED DILAUDED 0.5MG Q2H PRN. THE PATIENT IS NOT SATISFIED AND VERY UPSET AND THREATENING TO LEAVE AMA
--- NOTE | 2021-05-05 04:27 | NUR ---
SHIFT SUMMARY PT C/O PAIN T/O SHIFT, SLEEPS AFTER PAIN MEDS ADMIN THEN PUSHES CALL LIGHT SOON AWAKENS STATING "THE PAIN WAKES ME UP" AFTER TELLING PT IT'S TOO SOON FOR NEXT DOSE PT WILL RETURN TO SLEEP. CALLED MAIN DESK SEVERAL TIMES AT START OF SHIFT CURSED AT [facility] & DEMANDED PT HAVE ADDITINAL PAIN MEDS, THIS RN ATTEMPTED TO RETURN CALL TO W/NO ANSWER, LATER IN SHIFT SHEMAR CALL WAS ESCALATED TO NURSING SUP. PT SLEEPING AT THIS TIME, INDEP IN ROOM, CALL LIGHT IN REACH, WILL CONT TO MONITOR UNTIL REPORT GIVEN TO DAY RN.
[2021-05-05 04:29] LABS: BASOPHILS ABSOLUTE AUTO 0.03 K/mm3 (0.00-0.23); BASOPHILS PERCENT AUTO 0 % (0-2); EOSINOPHILS PERCENT AUTO 1 % (0-6); Hematocrit 33.5 % (33.0-51.0); Hemoglobin 10.9 g/dL (11.5-16.0); IMMATURE GRAN ABSOLUTE AUTO 0.02 K/mm3 (0.00-0.10); IMMATURE GRAN PERCENT AUTO 0 % (0-1); LYMPHOCYTES ABSOLUTE AUTO 1.26 K/mm3 (0.84-5.20); LYMPHOCYTES PERCENT AUTO 16 % (21-46); MONOCYTES ABSOLUTE AUTO 0.49 K/mm3 (0.16-1.47); MONOCYTES PERCENT AUTO 6 % (4-13); Mean Corpuscular HGB 26.8 pg (26.0-34.0); Mean Corpuscular HGB Conc 32.5 g/dL (31.5-36.5); Mean Corpuscular Volume 82 fL (80-100); Mean Platelet Volume 9.8 fL (9.1-12.4); NEUTROPHILS ABSOLUTE AUTO 5.87 K/mm3 (1.96-9.15); NEUTROPHILS PERCENT AUTO 76 % (41-73); Platelet Count 212 K/mm3 (150-400); RDW Coefficient Variation 13.1 % (11.7-14.2); RDW Standard Deviation 39.5 fL (35.1-46.3); Red Blood Cell Count 4.07 M/mm3 (3.80-5.20); White Blood Cell Count 7.77 K/mm3 (4.00-11.30)
[2021-05-05 04:51] LABS: Alanine Aminotransfer (ALT/SGP 93 U/L (12-78); Albumin, Blood 3.2 g/dL (3.4-5.0); Albumin/Globulin Ratio 0.9 (0.8-1.8); Alk Phos 143 U/L (50-136); Anion Gap 7 mmol/L (6-16); Aspartate Aminotrans (AST/SGOT 72 U/L (12-37); Bilirubin, Total 0.9 mg/dL (0.1-1.0); Blood Urea Nitrogen 5 mg/dL (8-24); Bun/Creatinine Ratio 8.8 (12.0-20.0); CO2, Blood 23 mmol/L (21-32); Calcium, Blood 8.1 mg/dL (8.5-10.1); Chloride, Blood 111 mmol/L (98-108); Creatinine, Blood 0.57 mg/dL (0.40-1.00); Globulin, Blood 3.6 g/dL (2.2-4.0); Glomerular Filtration Rate >60 (60-); Glucose, Blood 111 mg/dL (70-99); Magnesium, Blood 2.1 mg/dL (1.6-2.4); Potassium, Blood 3.8 mmol/L (3.5-5.5); Sodium, Blood 141 mmol/L (136-145); Total Protein, Blood 6.8 g/dL (6.4-8.2)
--- NOTE | 2021-05-05 18:32 | NUR ---
PATIENT A/OX4, UP INDEPENDENTLY IN ROOM. VSS, ON RA. REPORTS SEVERE LUQ ABDOMINAL PAIN. TREATING PAIN WITH DILAUDID AND SCHEDULED TORADOL. REMAINS NPO, REPORTS SOME INTERMITTENT NAUSEA WITHOUT EMESIS. SKIN INTACT. NS INFUSING AT 125ML/HR. CALM AND COOPERATIVE WITH CARE, CALLS APPROPRIATELY FOR ASSISTANCE.
[2021-05-06 05:41] LABS: Hematocrit 28.6 % (33.0-51.0); Hemoglobin 9.2 g/dL (11.5-16.0); Mean Corpuscular HGB 27.5 pg (26.0-34.0); Mean Corpuscular HGB Conc 32.2 g/dL (31.5-36.5); Mean Corpuscular Volume 86 fL (80-100); Mean Platelet Volume 10.1 fL (9.1-12.4); Platelet Count 167 K/mm3 (150-400); RDW Coefficient Variation 13.2 % (11.7-14.2); RDW Standard Deviation 40.6 fL (35.1-46.3); Red Blood Cell Count 3.34 M/mm3 (3.80-5.20)
--- NOTE | 2021-05-06 06:16 | NUR ---
SHIFT SUMMARY NO ACUTE CHANGES THIS SHIFT, MEDICATED PER MAR FOR PAIN, 1X FOR C/O NAUSEA (NO VOMITING), SLEPT INTERMIT T/O THE NIGHT, SLEEPING AT THIS TIME, CALL LIGHT IN REACH, WILL CONT TO MONITOR UNTIL REPORT GIVEN TO DAY RN.
[2021-05-06 06:22] LABS: Alanine Aminotransfer (ALT/SGP 56 U/L (12-78); Albumin, Blood 2.9 g/dL (3.4-5.0); Albumin/Globulin Ratio 0.9 (0.8-1.8); Alk Phos 114 U/L (50-136); Anion Gap 5 mmol/L (6-16); Aspartate Aminotrans (AST/SGOT 25 U/L (12-37); Bilirubin, Total 0.5 mg/dL (0.1-1.0); Blood Urea Nitrogen 8 mg/dL (8-24); Bun/Creatinine Ratio 15.5 (12.0-20.0); CO2, Blood 24 mmol/L (21-32); Calcium, Blood 7.9 mg/dL (8.5-10.1); Chloride, Blood 112 mmol/L (98-108); Creatinine, Blood 0.52 mg/dL (0.40-1.00); Globulin, Blood 3.4 g/dL (2.2-4.0); Glomerular Filtration Rate >60 (60-); Glucose, Blood 83 mg/dL (70-99); Potassium, Blood 3.5 mmol/L (3.5-5.5); Sodium, Blood 141 mmol/L (136-145); Total Protein, Blood 6.3 g/dL (6.4-8.2)
[2021-05-06] MEDS ORDERED: SUCR1 PO (14:32)
[2021-05-06] MEDS ORDERED: OXYC10TA19 PO (14:33)
--- NOTE | 2021-05-06 15:15 | NUR ---
PATIENT D/C'D TO HOME. RX MEDICATIONS FAXED TO [facility]. DC INSTRUCTIONS AND EDUCATION DISCUSSED WITH PATIENT AND COPY PROVIDED. PATIENT SENT WITH HARD SCRIPT FOR OXYCODONE. PATIENT DENIES ANY FURTHER QUESTIONS OR CONCERNS.
== END 2021-05-06 14:56 | disposition home or self-care (01) | DRG 440 ==
LOC: ER 08:14 → MEDS 11:10 → ERHOLD 11:10 → MEDS 15:21
PROVIDERS: Internal Medicine; Nurse Practitioner Acute Care; Physician Assistant; ADMIT Internal Medicine
DX: K85.80 Other acute pancreatitis without necrosis or infection (principal); E87.6 Hypokalemia; F32.9 Major depressive disorder, single episode, unspecified; F41.9 Anxiety disorder, unspecified; K21.9 Gastro-esophageal reflux disease without esophagitis; F10.11 Alcohol abuse, in remission; E78.1 Pure hyperglyceridemia; E78.00 Pure hypercholesterolemia, unspecified; Z79.899 Other long term (current) drug therapy
CPT/HCPCS: 36415; 74177; 80053; 82947; 83690; 83735; 84478; 85025; 85027; 85651; 96374; 96375; 96376; 99284; 99284-25; A9270; C9113; J1170; J1650; J1885; J2405; J3010; J3480; J7030; Q9967

== ENCOUNTER 2021-11-28 11:04 | Emergency (ER) | payer BC, OTHER ==
[~2021-11-28] VITALS: Ht 170.2 cm; Wt 83.0 kg
[~2021-11-28 11:04] MED LIST changes: +OXYC10TA19 PO; +SUCR1 PO
[2021-11-28 12:11] LABS: BASOPHILS ABSOLUTE AUTO 0.06 K/mm3 (0.00-0.23); BASOPHILS PERCENT AUTO 1 % (0-2); EOSINOPHILS PERCENT AUTO 2 % (0-6); Hematocrit 34.8 % (33.0-51.0); Hemoglobin 11.6 g/dL (11.5-16.0); IMMATURE GRAN ABSOLUTE AUTO 0.03 K/mm3 (0.00-0.10); IMMATURE GRAN PERCENT AUTO 0 % (0-1); LYMPHOCYTES ABSOLUTE AUTO 3.04 K/mm3 (0.84-5.20); LYMPHOCYTES PERCENT AUTO 31 % (21-46); MONOCYTES ABSOLUTE AUTO 0.59 K/mm3 (0.16-1.47); MONOCYTES PERCENT AUTO 6 % (4-13); Mean Corpuscular HGB 27.1 pg (26.0-34.0); Mean Corpuscular HGB Conc 33.3 g/dL (31.5-36.5); Mean Corpuscular Volume 81 fL (80-100); Mean Platelet Volume 9.6 fL (9.1-12.4); NEUTROPHILS PERCENT AUTO 61 % (41-73); Platelet Count 254 K/mm3 (150-400); RDW Standard Deviation 38.5 fL (35.1-46.3); Red Blood Cell Count 4.28 M/mm3 (3.80-5.20); White Blood Cell Count 9.92 K/mm3 (4.00-11.30)
[2021-11-28 12:17] LABS: Alanine Aminotransfer (ALT/SGP 65 U/L (12-78); Albumin, Blood 3.6 g/dL (3.4-5.0); Albumin/Globulin Ratio 0.9 (0.8-1.8); Alk Phos 95 U/L (50-136); Anion Gap 9 mmol/L (6-16); Aspartate Aminotrans (AST/SGOT 37 U/L (12-37); Bilirubin, Total 0.2 mg/dL (0.1-1.0); Blood Urea Nitrogen 13 mg/dL (8-24); Bun/Creatinine Ratio 22.2 (12.0-20.0); CO2, Blood 24 mmol/L (21-32); Calcium, Blood 8.6 mg/dL (8.5-10.1); Chloride, Blood 101 mmol/L (98-108); Creatinine, Blood 0.59 mg/dL (0.40-1.00); Globulin, Blood 3.9 g/dL (2.2-4.0); Glomerular Filtration Rate >60 (60-); Glucose, Blood 116 mg/dL (70-99); Potassium, Blood 3.8 mmol/L (3.5-5.5); Sodium, Blood 134 mmol/L (136-145); Total Protein, Blood 7.5 g/dL (6.4-8.2)
== END 2021-11-28 13:47 | disposition home or self-care (01) ==
LOC: ER 11:04
PROVIDERS: Emergency Medicine
DX: K85.90 Acute pancreatitis without necrosis or infection, unspecified (principal); E78.5 Hyperlipidemia, unspecified; Z91.048 Other nonmedicinal substance allergy status; Z88.5 Allergy status to narcotic agent; Z88.8 Allergy status to other drugs, medicaments and biological substances; Z79.899 Other long term (current) drug therapy
CPT/HCPCS: 36415; 80053; 83690; 85025; 96374; 96375; 99283-25; J0780; J1170; J7030

== ENCOUNTER → 2022-01-27 | Outpatient (CLI) | payer BC, OTHER ==
[2022-01-28 15:12] LABS: HPV 16 Negative (Negative); HPV 18 Negative (Negative); HPV OTHER HR TYPES Negative (Negative)
== END | disposition home or self-care (01) ==
LOC: LAB 16:30 → LAB SHORT 16:30
PROVIDERS: Obstetrics & Gynecology
DX: Z12.4 Encounter for screening for malignant neoplasm of cervix (principal)
CPT/HCPCS: 87624; G0123

== ENCOUNTER 2023-03-01 15:08 | Emergency (ER) | payer BC, OTHER ==
[~2023-03-01] VITALS: Ht 170.2 cm; Wt 83.9 kg
[2023-03-01 15:44] LABS: BASOPHILS ABSOLUTE AUTO 0.04 K/mm3 (0.00-0.23); BASOPHILS PERCENT AUTO 1 % (0-2); EOSINOPHILS ABSOLUTE AUTO 0.24 K/mm3 (0.00-0.68); EOSINOPHILS PERCENT AUTO 3 % (0-6); Hematocrit 35.9 % (33.0-51.0); Hemoglobin 12.1 g/dL (11.5-16.0); IMMATURE GRAN ABSOLUTE AUTO 0.01 K/mm3 (0.00-0.10); IMMATURE GRAN PERCENT AUTO 0 % (0-1); LYMPHOCYTES ABSOLUTE AUTO 2.45 K/mm3 (0.84-5.20); LYMPHOCYTES PERCENT AUTO 34 % (21-46); MONOCYTES ABSOLUTE AUTO 0.41 K/mm3 (0.16-1.47); MONOCYTES PERCENT AUTO 6 % (4-13); Mean Corpuscular HGB 26.7 pg (26.0-34.0); Mean Corpuscular HGB Conc 33.7 g/dL (31.5-36.5); Mean Corpuscular Volume 79 fL (80-100); Mean Platelet Volume 9.8 fL (9.1-12.4); NEUTROPHILS PERCENT AUTO 57 % (41-73); Platelet Count 275 K/mm3 (150-400); RDW Standard Deviation 37.1 fL (35.1-46.3); Red Blood Cell Count 4.54 M/mm3 (3.80-5.20); White Blood Cell Count 7.25 K/mm3 (4.00-11.30)
[2023-03-01 16:05] LABS: Albumin, Blood 3.7 g/dL (3.4-5.0); Bilirubin, Total 0.6 mg/dL (0.1-1.0); Bun/Creatinine Ratio 23.4 (12.0-20.0); Calcium, Blood 8.8 mg/dL (8.5-10.1); Creatinine, Blood 0.56 mg/dL (0.40-1.00); Globulin, Blood 3.8 g/dL (2.2-4.0); Potassium, Blood 3.9 mmol/L (3.5-5.5); Total Protein, Blood 7.5 g/dL (6.4-8.2)
[2023-03-01] MEDS ORDERED: PROM25 PO (20:41)
[2023-03-01 21:30] VITALS: BP 136/90
== END 2023-03-01 21:38 | disposition home or self-care (01) ==
LOC: ER 15:08
PROVIDERS: Physician Assistant
DX: K86.1 Other chronic pancreatitis (principal); E78.5 Hyperlipidemia, unspecified; Z88.8 Allergy status to other drugs, medicaments and biological substances; Z88.5 Allergy status to narcotic agent; Z91.048 Other nonmedicinal substance allergy status; Z79.899 Other long term (current) drug therapy; Z87.891 Personal history of nicotine dependence
CPT/HCPCS: 80053; 83690; 84703; 85025; 96361; 96372-59; 96374; 96375; 99284-25; A9270; J1170; J1885; J2405; J7120

== ENCOUNTER 2024-04-06 18:55 | Emergency (ER) | payer OTHER, BC ==
[~2024-04-06] VITALS: Ht 170.2 cm; Wt 78.0 kg
[~2024-04-06 18:55] MED LIST changes: +OMEP20ER PO; +OXYC10ER PO; -Prilosec Otc20 MG PO; +SERT100 PO; -SERT50 PO
[2024-04-06 18:59] VITALS: BP 169/112
== END 2024-04-06 20:26 | disposition home or self-care (01) ==
LOC: ER 18:55
DX: S67.196A Crushing injury of right little finger, initial encounter (principal); W23.0XXA Caught, crushed, jammed, or pinched between moving objects, initial encounter; Z79.899 Other long term (current) drug therapy; Z88.5 Allergy status to narcotic agent; Z91.048 Other nonmedicinal substance allergy status; Z88.8 Allergy status to other drugs, medicaments and biological substances
CPT/HCPCS: 12001; 73140; 99283-25

== ENCOUNTER 2024-07-09 18:23 | Inpatient (IN) | payer BC, OTHER ==
[~2024-07-09] VITALS: Ht 170.2 cm; Wt 76.8 kg
[~2024-07-09 18:23] MED LIST changes: +ACET500 PO; +DICY20 PO; +ONDA4 PO
[2024-07-09 19:41] LABS: BASOPHILS ABSOLUTE AUTO 0.03 K/mm3 (0.00-0.23); BASOPHILS PERCENT AUTO 0 % (0-2); EOSINOPHILS ABSOLUTE AUTO 0.15 K/mm3 (0.00-0.68); EOSINOPHILS PERCENT AUTO 2 % (0-6); Hematocrit 33.7 % (33.0-51.0); Hemoglobin 11.6 g/dL (11.5-16.0); IMMATURE GRAN ABSOLUTE AUTO 0.02 K/mm3 (0.00-0.10); IMMATURE GRAN PERCENT AUTO 0 % (0-1); LYMPHOCYTES PERCENT AUTO 31 % (21-46); MONOCYTES ABSOLUTE AUTO 0.45 K/mm3 (0.16-1.47); MONOCYTES PERCENT AUTO 7 % (4-13); Mean Corpuscular HGB Conc 34.4 g/dL (31.5-36.5); Mean Corpuscular Volume 78 fL (80-100); Mean Platelet Volume 9.7 fL (9.1-12.4); NEUTROPHILS ABSOLUTE AUTO 3.97 K/mm3 (1.96-9.15); NEUTROPHILS PERCENT AUTO 59 % (41-73); Platelet Count 204 K/mm3 (150-400); RDW Coefficient Variation 13.2 % (11.7-14.2); RDW Standard Deviation 37.7 fL (35.1-46.3); White Blood Cell Count 6.72 K/mm3 (4.00-11.30)
[2024-07-09] MEDS ORDERED: Lactated Ringer's 1,000 ML IV ONE (19:55)
[2024-07-09] MEDS ORDERED: Ondansetron HCl 2 MG / ML 2ML Vial IV ONE (19:55)
[2024-07-09] MEDS ORDERED: HYDROmorphone HCl/Pf 1MG SYR IV ONE (19:55)
[2024-07-09 19:58] LABS: Albumin, Blood 3.3 g/dL (3.4-5.0); Albumin/Globulin Ratio 0.8 (0.8-1.8); Bilirubin, Total 0.7 mg/dL (0.1-1.0); Bun/Creatinine Ratio 17.8 (12.0-20.0); Calcium, Blood 8.9 mg/dL (8.5-10.1); Creatinine, Blood 0.51 mg/dL (0.40-1.00); Potassium, Blood 3.8 mmol/L (3.5-5.5); Total Protein, Blood 7.3 g/dL (6.4-8.2)
[2024-07-09 21:12] LABS: Source, Urine Clean Catch
[2024-07-09 21:16] LABS: Appearance, Urine Clear (Clear); Bilirubin, Urine Neg (Neg); Blood, Urine Neg (Neg); Color, Urine Yellow (P-Yellow); Glucose Qualitative, Urine 2+ (Neg); Ketones, Urine Neg (Neg); Leukocyte Esterase, Urine Neg (Neg); Nitrite, Urine Neg (Neg); Protein, Urine 1+ (Neg); Specific Gravity, Urine 1.015 (1.003-1.022); Urobilinogen, Urine NORM (Normal)
[2024-07-09] MEDS ORDERED: FLU VACC TS2024-25(6MOS UP)/PF 45 MCG/0.5 ML SYRINGE IM SCH (22:25)
[2024-07-09] MEDS ORDERED: Ondansetron HCl 2 MG / ML 2ML Vial IV PRN (22:25)
[2024-07-09] MEDS ORDERED: HYDROmorphone HCl/Pf 1MG SYR IV PRN (22:25)
[2024-07-09] MEDS ORDERED: Lactated Ringer's 1,000 ML IV SCH (23:00)
[2024-07-10 01:36] LABS: CHOL/HDL RATIO 4.7; Cholesterol 216 mg/dL (50-200); HDL Cholesterol 46 mg/dL (>39); LDL/HDL RATIO 2.6; Low Density Lipoprotein Chol 122 mg/dL (0-110); Triglycerides 241 mg/dL (30-160); Very Low Density Lipoprot Chol 48 mg/dL (6-32)
[2024-07-10] MEDS ORDERED: OXYC10TA19 PO (02:30)
[2024-07-10 03:21] VITALS: BP 160/106
[2024-07-10 04:17] VITALS: BP 128/88
--- NOTE | 2024-07-10 04:17 | NUR ---
ADMISSION NOTE. PT AOX4, PLEASANT, COOPERATIVE WITH CARE, ABLE TO MAKE NEEDS KNOWN, EDUCATED CAKE PULLER LIGHT. ADMITTED FOR ACUTE PANCREATITIS. CLEAR LIQUID DIET. COMPLAINING OF 8-9/10 PAIN ON ASSESSMENT, MEDICATED PER EMAR. FLUIDS INFUSING. MED STATUS NO TELE. VITALS STABLE. ADMISSION PROCESS COMPLETED PER [facility]. PT INDEPENDENT ON TRANSFER, EDUCATED CAKE PULLER LIGHT TO CALL FOR ASSISTANCE APPROPRIATELY. BED LOCKED IN LOWEST POSITION. CALL LIGHT LEFT WITHIN REACH. CONTINUING TO MONITOR.
[2024-07-10] MEDS ORDERED: HYDROmorphone HCl/Pf 1MG SYR IV ONE (06:10)
[2024-07-10 08:04] VITALS: BP 123/84
[2024-07-10] MEDS ORDERED: Enoxaparin 40 MG/0.4 ML SYR SC SCH (09:00)
[2024-07-10] MEDS ORDERED: Promethazine HCl 25 MG Tab PO PRN (09:25)
[2024-07-10] MEDS ORDERED: Ketorolac Tromethamine 30mg Vial IV PRN (09:30)
[2024-07-10] MEDS ORDERED: HydrOXYzine Pamoate 25 MG Cap PO PRN (11:25)
[2024-07-10] MEDS ORDERED: Omeprazole 20 MG CapCR PO SCH (11:35)
[2024-07-10] MEDS ORDERED: Sertraline HCl 100 MG Tab PO SCH (11:35)
--- NOTE | 2024-07-10 12:17 | NUR ---
ASSUMPTION OF CARE PT ALERT AND ORIENTED, CALM, COOPERATIVE TO CARE, SKIN INTACT, NO BREAKDOWN NOTED. HR IN THE 80'S, SBP ELEVATED, DENIES CP/PRESSURE, NUMB/TINGLING, L/S CLEAR T/O, O2 >92% ON RA +BS, ABD PAIN/TENDERNESS, MEDICATING PER EMAR, DENIES N/V AT THIS TIME. UP AND AMBULATORY IN THE ROOM INDEPENDENTLY. PT MEDICAL NO TELE, PT HAS ROOM ON MEDICAL FLOOR BUT WAITING FOR IT TO BE CLEANED, REPORT GIVEN TO MEDICAL FLOOR RN AROUND 1200, RN TO CALL WHEN ROOM IS READY. WILL MONITOR PT.
--- NOTE | 2024-07-10 14:45 | NUR ---
PATIENT ARRIVED TO MEDICAL FLOOR AT 1435 WITH ALL BELONGINGS. CLEAR LIQUID DIET. IV x2: RAC AND LFA. LR @ 125mL/hr HOOKED TO LFA. RAC REMOVED D/T PATIENT DISCOMFORT.
--- NOTE | 2024-07-10 14:54 | NUR ---
TRANSFER SUMMARY PT LEFT FOR MEDICAL FLOOR VIA WHEELCHAIR AROUND APPROX 1420. VSS. BELONGINGS WITH PT.
[2024-07-10] MEDS ORDERED: Insulin Regular 100 UNIT/ML 10ML Vial SC SCH (16:30)
[2024-07-10 16:38] VITALS: BP 127/85
--- NOTE | 2024-07-10 18:42 | NUR ---
END OF SHIFT SUMMARY: A&Ox4. PLEASANT AND COOPERATIVE WITH CARE. CALLS APPROPRIATELY AND IS ABLE TO ADVOCATE NEEDS EFFECTIVELY. AMBULATES INDEPENDENTLY WITHIN ROOM. CONTINENT OF BOWEL AND BLADDER. MEDS WHOLE WITH FLUIDS. 9/10 EPIGASTRIC PAIN Tx TORADOL AND DILAUDID 2MG x1 WITH SIGNIFICANT RELIEF. BED IN LOWEST POSITION. CALL LIGHT WITHIN REACH. ALL NEEDS MET. REPORT TO ONCOMING NURSE.
[2024-07-10 20:27] VITALS: BP 120/78
[2024-07-11 04:35] VITALS: BP 118/88
[2024-07-11 05:47] LABS: Albumin/Globulin Ratio 0.9 (0.8-1.8); Bilirubin, Total 0.4 mg/dL (0.1-1.0); Bun/Creatinine Ratio 11.9 (12.0-20.0); Calcium, Blood 8.9 mg/dL (8.5-10.1); Creatinine, Blood 0.51 mg/dL (0.40-1.00); Globulin, Blood 3.4 g/dL (2.2-4.0); Potassium, Blood 3.9 mmol/L (3.5-5.5); Total Protein, Blood 6.4 g/dL (6.4-8.2)
[2024-07-11] MEDS ORDERED: Omeprazole 20 MG CapCR PO SCH (06:00)
--- NOTE | 2024-07-11 06:51 | NUR ---
SHIFT SUMMARY. PATIENT IS A&OX4. PATIENT REPORTS INCREASED TIREDNESS THIS SHIFT. PATIENT REPORTS THAT HER STOOLS HAVE A PINK COLOR TO THEM. PATIENTS Hgb HAS DECREASED FROM 9.4 TO 8.3-SEE PREVIOUS NOTES. TELEMETRY ON WITH LEADS IN PLACE-NOTED EPISODES THIS SHIFT; SEE PREVIOUS NOTES. PATIENT CALLS APPROPRIATELY. PATIENT RECEIVING IV ABX PER ORDERS. BED IS LOCKED IN THE LOWEST POSITION WITH CALL LIGHT IN REACH. CARE IS ONGOING.
[2024-07-11 07:14] VITALS: BP 111/75
--- NOTE | 2024-07-11 07:25 | NUR ---
SHIFT SUMMARY. PATIENT IS A&OX4. PATIENT IS ABLE TO MAKE HER NEEDS KNOWN AND CALLS APPROPRIATELY. PATIENT C/O PAIN-MEDICATED PER EMAR. SHOWER COMPLETED THIS NIGHT. BED IS LOCKED IN THE LOWEST POSITION WITH CALL LIGHT IN REACH. REPORT GIVEN TO DAYSHIFT NURSE.
[2024-07-11] MEDS ORDERED: Sertraline HCl 100 MG Tab PO SCH (09:00)
[2024-07-11] MEDS ORDERED: Lactated Ringer's 1,000 ML IV SCH (10:45)
[2024-07-11] MEDS ORDERED: Polyethylene Glycol 3350 17 gm PO SCH (11:00)
[2024-07-11] MEDS ORDERED: OxyCODONE HCL 5 MG TAB PO PRN (12:20)
[2024-07-11] MEDS ORDERED: HYDROmorphone HCl/Pf 1MG SYR IV PRN (12:20)
--- NOTE | 2024-07-11 13:57 | NUR ---
PATIENT CALLED WITH C/O PAIN 06/27, ROCKING BACK AND FORTH, CRYING, AFTER ATTEMPTING FULL LIQUIDS FOR LUNCH. STATED SHE THINKS SHE NEEDS TO GO BACK TO CLEAR LIQUIDS DUE TO ABD DISCOMFORT EXPERIENCED WITH LUNCH.
[2024-07-11 15:35] VITALS: BP 111/76
--- NOTE | 2024-07-11 16:08 | NUR ---
PATIENT REQUESTING PAIN MEDICATION; NO EFFECTIVENESS WITH PO OXYCODONE.
--- NOTE | 2024-07-11 19:20 | NUR ---
DAY SHIFT SUMMARY A&Ox4. PLEASANT AND COOPERATIVE WITH CARE. CALLS APPROPRIATELY AND IS ABLE TO ADVOCATE NEEDS EFFECTIVELY. AMBULATES INDEPENDENTLY WITHIN ROOM. CONTINENT OF BOWEL AND BLADDER. LBM A FEW DAYS AGO; STARTED PEG POWDER TODAY. TAKES MEDS WHOLE WITH FLUIDS. UNSUCCESSFULLY ATTEMPTED TO ADVANCE DIET TO FULL LIQUIDS DURING LUNCH; EXPERIENCED 10/10 PAIN AFTER ATTEMPTING FULL LIQUID. GOOD CONTROL WITH HYDROMORPHONE 2MG IV BUT NOT GETTING LONGEVITY OUT OF IT. DR MANZANO CHANGED TO 1-2MG q2h PRN AND OXYCODONE 5MG q4h PRN. LITTLE TO NO EFFECTIVE PAIN CONTROL WITH OXYCODONE AND HYDROMORPHONE 2MG VIA IV WAS ADMINISTERED AGAIN. LR @ 75mL/hr. BED IN LOWEST POSITION. CALL LIGHT WITHIN REACH. ALL NEEDS MET. REPORT TO ONCOMING NURSE.
[2024-07-12 00:30] VITALS: BP 110/79
[2024-07-12 03:38] VITALS: BP 100/68
[2024-07-12 07:18] VITALS: BP 96/69
[2024-07-12] MEDS ORDERED: HYDROmorphone HCl 2 MG Tab PO PRN (10:00)
[2024-07-12] MEDS ORDERED: HYDMOR2 PO (13:08)
[2024-07-12] MEDS ORDERED: PROM25 PO (13:09)
[2024-07-12] MEDS ORDERED: MIRALAX17 GM PO (13:09)
[2024-07-12] MEDS ORDERED: SENN187 PO (13:10)
--- NOTE | 2024-07-12 15:04 | NUR ---
DISCHARGE SUMMARY: A&Ox4. PLEASANT AND COOPERATIVE WITH CARE. CALLS APPROPRIATELY AND IS ABLE TO ADVOCATE NEEDS EFFECTIVELY. CONTINENT OF BOWEL AND BLADDER. AMBULATES INDEPENDENTLY WITHIN ROOM. OPTED TO REFUSED LOVENOX SHE HAS BEEN TRYIN TO REMAIN AMBULATORY TO DECREASE BLOOD CLOT RISK ELIMINATION. LBM >3 DAYS AGO; DISCHARGED WITH Rx FOR STOOL SOFTENERS AND EDUCATION REGARDING CONSTIPATION. MEDS WHOLE WITH FLUIDS. PAIN CONTROLLED WITH HYDROMORPHONE. MEDICATIONS FAXED TO [facility] AND GIVEN HARD COPY FOR HYDROMORPHONE. INSTRUCTED TO FOLLOW-UP WITH PRIMARY CARE PROVIDER; CALL TODAY OR MONDAY TO SCHEDULE. PATIENT LEFT FLOOR AT WITH ALL BELONGINGS, HARD SCRIPT AND DISCHARGE PACKET.
== END 2024-07-12 13:46 | disposition home or self-care (01) | DRG 440 ==
LOC: ER 18:23 → PCU 22:22 → ERHOLD 22:22 → PCU 07-10 03:07 → MEDS 07-10 14:36
PROVIDERS: Internal Medicine; Student in an Organized Health Care Education/Training Program; ADMIT Family Medicine
DX: K85.90 Acute pancreatitis without necrosis or infection, unspecified (principal); N32.89 Other specified disorders of bladder; N83.11 Corpus luteum cyst of right ovary; E11.9 Type 2 diabetes mellitus without complications; E78.1 Pure hyperglyceridemia; D73.4 Cyst of spleen; K21.9 Gastro-esophageal reflux disease without esophagitis; F41.8 Other specified anxiety disorders; K86.1 Other chronic pancreatitis; E78.5 Hyperlipidemia, unspecified; K86.89 Other specified diseases of pancreas; Z91.048 Other nonmedicinal substance allergy status; Z88.5 Allergy status to narcotic agent; Z88.8 Allergy status to other drugs, medicaments and biological substances; Z90.89 Acquired absence of other organs; Z90.49 Acquired absence of other specified parts of digestive tract; Z98.890 Other specified postprocedural states; Z93.2 Ileostomy status; Z87.891 Personal history of nicotine dependence; Z79.899 Other long term (current) drug therapy; Z91.040 Latex allergy status
CPT/HCPCS: 36415; 74177; 80053; 80061; 82947; 83690; 84703; 85025; 96361; 96374; 96375; 96376; 99284-25; A9270; J1170; J1650; J1815; J1885; J2405; J7030; J7120; Q9967

== ENCOUNTER 2025-08-27 09:47 | Inpatient (IN) | payer OTHER ==
[~2025-08-27] VITALS: Ht 170.2 cm; Wt 76.4 kg
[~2025-08-27 09:47] MED LIST changes: +SENN187 PO
[2025-08-27] MEDS ORDERED: HYDROmorphone HCl/Pf 1MG SYR IV ONE ×4 (11:00→15:45)
[2025-08-27] MEDS ORDERED: Ondansetron HCl 2 MG / ML 2ML Vial IV ONE ×2 (11:00→13:45)
[2025-08-27 11:43] LABS: BASOPHILS ABSOLUTE AUTO 0.05 K/mm3 (0.00-0.23); BASOPHILS PERCENT AUTO 1 % (0-2); EOSINOPHILS ABSOLUTE AUTO 0.02 K/mm3 (0.00-0.68); EOSINOPHILS PERCENT AUTO 0 % (0-6); Hematocrit 36.5 % (33.0-51.0); Hemoglobin 12.8 g/dL (11.5-16.0); IMMATURE GRAN ABSOLUTE AUTO 0.05 K/mm3 (0.00-0.10); IMMATURE GRAN PERCENT AUTO 1 % (0-1); LYMPHOCYTES ABSOLUTE AUTO 1.24 K/mm3 (0.84-5.20); LYMPHOCYTES PERCENT AUTO 11 % (21-46); MONOCYTES ABSOLUTE AUTO 0.41 K/mm3 (0.16-1.47); MONOCYTES PERCENT AUTO 4 % (4-13); Mean Corpuscular HGB Conc 35.1 g/dL (31.5-36.5); Mean Corpuscular Volume 79 fL (80-100); NEUTROPHILS ABSOLUTE AUTO 9.24 K/mm3 (1.96-9.15); NEUTROPHILS PERCENT AUTO 84 % (41-73); NRBC ABSOLUTE 0.00 K/mm3 (0.00-0.02); NRBC Auto 0.0 /100 WBC (0.0-0.2); Platelet Count 216 K/mm3 (150-400); RDW Coefficient Variation 13.0 % (11.7-14.2); RDW Standard Deviation 36.9 fL (35.1-46.3)
[2025-08-27 12:56] LABS: Alanine Aminotransfer (ALT/SGP 30.0 U/L (12-78); Albumin, Blood 3.9 g/dL (3.4-5.0); Albumin/Globulin Ratio 1.1 (0.8-1.8); Anion Gap 12.0 mmol/L (3-11); Aspartate Aminotrans (AST/SGOT 24.0 U/L (12-37); Bilirubin, Total 0.6 mg/dL (0.1-1.0); Blood Urea Nitrogen 13.0 mg/dL (8-24); CO2, Blood 22.0 mmol/L (21-32); Calcium, Blood 8.8 mg/dL (8.5-10.1); Chloride, Blood 101.0 mmol/L (98-108); Creatinine, Blood 0.4 mg/dL (0.40-1.00); Globulin, Blood 3.7 g/dL (2.2-4.0); Glucose, Blood 346.0 mg/dL (70-99); Potassium, Blood 4.1 mmol/L (3.5-5.5); Sodium, Blood 131.0 mmol/L (136-145); Total Protein, Blood 7.6 g/dL (6.4-8.2)
[2025-08-27 14:53] LABS: Source, Urine Clean Catch
[2025-08-27 15:15] LABS: Bilirubin, Urine Neg (Neg); Glucose Qualitative, Urine 4+ (Neg); Ketones, Urine 3+ (Neg); Leukocyte Esterase, Urine Neg (Neg); Protein, Urine Neg (Neg); Specific Gravity, Urine 1.010 (1.003-1.022); Urobilinogen, Urine NORM (Normal)
[2025-08-27 15:20] LABS: Color, Urine Pale Yellow (P-Yellow)
[2025-08-27] MEDS ORDERED: Metoclopramide HCl 5MG / ML 2ML Vial IV PRN (16:25)
[2025-08-27 16:28] LABS: Cholesterol 310 mg/dL (50-200); Triglycerides 317 mg/dL (30-160)
[2025-08-27] MEDS ORDERED: FLU VACC TS2025-26(6MOS UP)/PF 45 MCG/0.5 ML SYRINGE IM ONE (16:30)
[2025-08-27] MEDS ORDERED: HYDROmorphone HCl/Pf 1MG SYR IV PRN ×2 (16:35→21:05)
[2025-08-27] MEDS ORDERED: Insulin Glargine-Yfgn 100 Unit/mL 3 ML SYR SC ONE (17:00)
--- NOTE | 2025-08-27 17:00 | NUR ---
PT ARRIVED TO FLOOR RIGHT AT SHIFT CHANGE. PT ALERT AND ORIENTED. ABLE TO MAKE NEEDS KNOWN. PLEASANT AND COOPERATIVE WITH CARES. INDEPENDENT IN ROOM. RFA PIV. COMPLAINTS OF PAIN AND NAUSEA. MEDICATED PER MAR WITH DILAUDID AND REGLAN. LR IS RUNNING AT 125ML/HR. NO OTHER CONCERNS AT THIS TIME. VSS. BED IN LOWEST POSITION. CALL LIGHT IN REACH.
[2025-08-27] MEDS ORDERED: DiphenhydrAMINE HCl 50 MG/ML 1ML Vial IV ONE (17:45)
[2025-08-27] MEDS ORDERED: Insulin Human Lispro 100 Units/ML 3ML Syringe SC SCH (18:00)
[2025-08-27] MEDS ORDERED: GLIP5 PO (18:44)
[2025-08-27] MEDS ORDERED: METFORMIN HCL500 M2 PO (18:44)
[2025-08-27] MEDS ORDERED: METF500 PO (19:11)
[2025-08-27] MEDS ORDERED: BASAGLAR K100 UNIT/3 SC (19:15)
[2025-08-27 19:17] VITALS: BP 138/95
--- NOTE | 2025-08-28 02:59 | NUR ---
SHIFT SUMMARY CHRISTIANE COMES IN FOR PANCREATITIS. SHE IS ALERT AND ORIENTED. ABLE TO MAKE NEEDS KNOWN. PLEASANT AND COOPERATIVE WITH CARES. INDEPENDENT IN THE ROOM. SHE HAS A RFA PIV RUNNING LR AT 125ML/HR. CLEAR LIQUID DIET WITH Q6 CBG CHECKS. STRICT I&O. SHE IS BEING ADMITTED FOR PAIN MANAGEMENT. SHE HAS DILAUDID Q4 FOR PAIN, ZOFRAN Q6, AND REGLAN Q6 AVAILABLE. SHE IS INTERESTED IN OBTAINING THE FLU VACCINE IN THE MORNING AND WOULD LIKE TO DISCUSS THIS FURTHER WITH DAY SHIFT. VSS. BED IN LOWEST POSITION. CALL LIGHT IN REACH.
[2025-08-28 03:03] VITALS: BP 142/92
[2025-08-28 06:05] LABS: BASOPHILS ABSOLUTE AUTO 0.03 K/mm3 (0.00-0.23); BASOPHILS PERCENT AUTO 0 % (0-2); EOSINOPHILS ABSOLUTE AUTO 0.07 K/mm3 (0.00-0.68); EOSINOPHILS PERCENT AUTO 1 % (0-6); Hematocrit 38.8 % (33.0-51.0); Hemoglobin 12.9 g/dL (11.5-16.0); IMMATURE GRAN ABSOLUTE AUTO 0.04 K/mm3 (0.00-0.10); IMMATURE GRAN PERCENT AUTO 0 % (0-1); LYMPHOCYTES ABSOLUTE AUTO 1.37 K/mm3 (0.84-5.20); LYMPHOCYTES PERCENT AUTO 12 % (21-46); MONOCYTES ABSOLUTE AUTO 0.64 K/mm3 (0.16-1.47); MONOCYTES PERCENT AUTO 6 % (4-13); Mean Corpuscular HGB Conc 33.2 g/dL (31.5-36.5); Mean Corpuscular Volume 80 fL (80-100); NEUTROPHILS ABSOLUTE AUTO 9.16 K/mm3 (1.96-9.15); NEUTROPHILS PERCENT AUTO 81 % (41-73); NRBC ABSOLUTE 0.00 K/mm3 (0.00-0.02); NRBC Auto 0.0 /100 WBC (0.0-0.2); Platelet Count 222 K/mm3 (150-400); RDW Coefficient Variation 13.0 % (11.7-14.2); RDW Standard Deviation 37.2 fL (35.1-46.3)
[2025-08-28 06:43] LABS: Alanine Aminotransfer (ALT/SGP 27.0 U/L (12-78); Albumin, Blood 4.1 g/dL (3.4-5.0); Albumin/Globulin Ratio 1.1 (0.8-1.8); Anion Gap 8.0 mmol/L (3-11); Aspartate Aminotrans (AST/SGOT 16.0 U/L (12-37); Bilirubin, Total 0.6 mg/dL (0.1-1.0); Blood Urea Nitrogen 8.0 mg/dL (8-24); CO2, Blood 28.0 mmol/L (21-32); Calcium, Blood 8.9 mg/dL (8.5-10.1); Chloride, Blood 100.0 mmol/L (98-108); Creatinine, Blood 0.44 mg/dL (0.40-1.00); Globulin, Blood 3.7 g/dL (2.2-4.0); Glucose, Blood 205.0 mg/dL (70-99); Potassium, Blood 3.3 mmol/L (3.5-5.5); Sodium, Blood 133.0 mmol/L (136-145); Total Protein, Blood 7.8 g/dL (6.4-8.2)
[2025-08-28] MEDS ORDERED: Enoxaparin 40 MG/0.4 ML SYR SC SCH (09:00)
[2025-08-28 10:05] VITALS: BP 135/94
[2025-08-28] MEDS ORDERED: Ondansetron HCl 2 MG / ML 2ML Vial IV PRN (11:40)
[2025-08-28] MEDS ORDERED: Insulin Human Lispro 100 Units/ML 3ML Syringe SC SCH (12:00)
[2025-08-28] MEDS ORDERED: NS KCL 40 mEq 1,000 ML IV SCH (12:00)
[2025-08-28] MEDS ORDERED: GLIP5 PO (16:24)
[2025-08-28] MEDS ORDERED: LANTUS SOL100 UNIT/1 SC (16:25)
[2025-08-28 16:32] VITALS: BP 141/95
--- NOTE | 2025-08-28 17:27 | NUR ---
NO ACUTE CHANGES, PATIENT RATES PAIN 04/27 AND FALL ALSEEP IN MID SENTENCE, MEDICATED WITH DILAUDID FOR 04/27 PAIN, PATIENT REPORTS NOT SLEEPING, REPORTED TO DR ZAVALA, NATRAX AVAILABLE AT NIGHT. PATIENT VERY EMOTIONS AND UNABLE TO RE-EDUCATE OR ORIENTE DURING EMOTIONAL PERIODS, REPORTED EMOTIONAL OUTBURST TO SERVICE TESTER, MINIMAL INTAKE, INDEPENDENT IN ROOM AND ON UNIT, LR INFUSING, VSS, CALL LIGHT WITH IN REACH, WILL RLEAY TO PM RN
[2025-08-28 19:35] VITALS: BP 143/86
--- NOTE | 2025-08-29 03:48 | NUR ---
ASSUMED CARE OF ROOM 327. REPORT TAKEN FROM PIPER VALDEZ.
[2025-08-29 03:59] VITALS: BP 143/98
--- NOTE | 2025-08-29 03:59 | NUR ---
SHIFT SUMMARY NO ACUTE EVENTS DURING THIS SHIFT. MEDICATED Q2HRS T/O THIS SHIFT WITH DILAUDID IV 1MG. PRN HYDROXYZINE PO 50MG FOR C/O INSOMNIA ADMINISTERED AT HS. PT HAS STAYED AWAKE T/O THIS SHIFT REQUESTING THE PAIN MEDICATIONS Q2HRS. PT REPORTS PAIN REDUCES "25% SO TO 2.5" PER PT STATEMENT, WITH THE DILAUDID 1MG. REGLAN AND ZOFRAN PRN IV ADMINISTERED ORDERED. NO VOMITING, C/O NAUSEA. LR INFUSING @125MLS/HR ORDERED. PT IS A/O X4, INDEPENDENT WITHIN THE HOSPITAL ROOM AND ABLE TO MAKE HER NEEDS KNOWN. BED AT THE LOWEST POSITION, CALL LIGHT WITHIN REACH.
[2025-08-29 05:16] LABS: BASOPHILS ABSOLUTE AUTO 0.02 K/mm3 (0.00-0.23); BASOPHILS PERCENT AUTO 0 % (0-2); EOSINOPHILS ABSOLUTE AUTO 0.08 K/mm3 (0.00-0.68); EOSINOPHILS PERCENT AUTO 1 % (0-6); Hematocrit 32.8 % (33.0-51.0); Hemoglobin 11.3 g/dL (11.5-16.0); IMMATURE GRAN ABSOLUTE AUTO 0.02 K/mm3 (0.00-0.10); IMMATURE GRAN PERCENT AUTO 0 % (0-1); LYMPHOCYTES ABSOLUTE AUTO 1.58 K/mm3 (0.84-5.20); LYMPHOCYTES PERCENT AUTO 23 % (21-46); MONOCYTES ABSOLUTE AUTO 0.67 K/mm3 (0.16-1.47); MONOCYTES PERCENT AUTO 10 % (4-13); Mean Corpuscular HGB Conc 34.5 g/dL (31.5-36.5); Mean Corpuscular Volume 80 fL (80-100); NEUTROPHILS ABSOLUTE AUTO 4.61 K/mm3 (1.96-9.15); NEUTROPHILS PERCENT AUTO 66 % (41-73); NRBC ABSOLUTE 0.00 K/mm3 (0.00-0.02); NRBC Auto 0.0 /100 WBC (0.0-0.2); Platelet Count 153 K/mm3 (150-400); RDW Coefficient Variation 12.9 % (11.7-14.2); RDW Standard Deviation 37.3 fL (35.1-46.3)
[2025-08-29 05:41] LABS: Alanine Aminotransfer (ALT/SGP 22.0 U/L (12-78); Albumin, Blood 3.2 g/dL (3.4-5.0); Albumin/Globulin Ratio 0.9 (0.8-1.8); Anion Gap 8.0 mmol/L (3-11); Aspartate Aminotrans (AST/SGOT 17.0 U/L (12-37); Bilirubin, Total 0.9 mg/dL (0.1-1.0); Blood Urea Nitrogen 8.0 mg/dL (8-24); CO2, Blood 26.0 mmol/L (21-32); Calcium, Blood 8.2 mg/dL (8.5-10.1); Chloride, Blood 101.0 mmol/L (98-108); Creatinine, Blood 0.36 mg/dL (0.40-1.00); Globulin, Blood 3.6 g/dL (2.2-4.0); Glucose, Blood 131.0 mg/dL (70-99); Magnesium, Blood 1.5 mg/dL (1.6-2.4); Potassium, Blood 3.2 mmol/L (3.5-5.5); Sodium, Blood 132.0 mmol/L (136-145); Total Protein, Blood 6.8 g/dL (6.4-8.2)
[2025-08-29] MEDS ORDERED: Mag Sulfate 1 GM/D5% 100ML 100 ML IV STA (06:54)
[2025-08-29 07:10] VITALS: BP 152/95
[2025-08-29] MEDS ORDERED: Pantoprazole Sodium 40 MG Injection IV SCH (09:00)
[2025-08-29 15:32] VITALS: BP 113/72
--- NOTE | 2025-08-29 16:41 | NUR ---
SHIFT SUMMARY PT AOX4, COOPERATIVE, ABLE TO MAKE NEEDS KNOWN. PT IS IND IN ROOM, ON ROOM AIR, C/O OF ABD PAIN MOST OF SHIFT, MEDICATING PER EMAR. TOLERATING MEDICATION. PT DID "ACCIDENTLY" DC RFA IV OF OWN ACCORD. ACCORDING TO PT, SHE WAS "TRY TO FIX THE IV STICKER". THIS RN ASSESSED WOUND AND PERFORMED WOUND CARE NECESSARY AND PLACED ANOTHER PATENT IV. RUNNING LR 125 AND K MOST OF SHIFT. NO OTHER ACUTE EVENTS TOOK PLACE THIS SHIFT. BED IN LOWEST POSITION, CALL LIGHT WITHIN REACH.
[2025-08-29 19:33] VITALS: BP 114/73
[2025-08-30 03:31] VITALS: BP 130/87
--- NOTE | 2025-08-30 06:40 | NUR ---
SHIFT SUMMARY PT MEDICATED THROUGH THE NIGHT FOR PAIN WITH DILAUDID PER EMAR. MEDICATED FOR NAUSEA X2. PT UP INDEPENDENTLY IN ROOM WITH STEADY GAIT. NO ACUTE CHANGES. SLEPT INTERMITTENTLY DURING THE NIGHT.
[2025-08-30 08:15] VITALS: BP 108/76
[2025-08-30 08:39] LABS: BASOPHILS ABSOLUTE AUTO 0.02 K/mm3 (0.00-0.23); BASOPHILS PERCENT AUTO 0 % (0-2); EOSINOPHILS ABSOLUTE AUTO 0.07 K/mm3 (0.00-0.68); EOSINOPHILS PERCENT AUTO 1 % (0-6); Hematocrit 27.4 % (33.0-51.0); Hemoglobin 9.4 g/dL (11.5-16.0); IMMATURE GRAN ABSOLUTE AUTO 0.04 K/mm3 (0.00-0.10); IMMATURE GRAN PERCENT AUTO 1 % (0-1); LYMPHOCYTES ABSOLUTE AUTO 1.38 K/mm3 (0.84-5.20); LYMPHOCYTES PERCENT AUTO 19 % (21-46); MONOCYTES ABSOLUTE AUTO 0.71 K/mm3 (0.16-1.47); MONOCYTES PERCENT AUTO 10 % (4-13); Mean Corpuscular HGB Conc 34.3 g/dL (31.5-36.5); Mean Corpuscular Volume 81 fL (80-100); NEUTROPHILS ABSOLUTE AUTO 5.16 K/mm3 (1.96-9.15); NEUTROPHILS PERCENT AUTO 70 % (41-73); NRBC ABSOLUTE 0.00 K/mm3 (0.00-0.02); NRBC Auto 0.0 /100 WBC (0.0-0.2); Platelet Count 147 K/mm3 (150-400); RDW Coefficient Variation 13.2 % (11.7-14.2); RDW Standard Deviation 39.2 fL (35.1-46.3)
--- NOTE | 2025-08-30 09:00 | NUR ---
pt sitting up on the bed, gets up ad marifer indep, a/ox4, pleasant and cooperative with care, follows commands well, reports abd pain, lungs are clear t/o, resp even and unlabored, no cough noted, on r/a, hrr, tele in place running sr in the 60's, per monitor, see strip, no edema noted, ppp+2, cap refill<3 sec, vs stable, afebrile, piv to left wrist, site is clear and patent, btx4, abd flat soft tender in upper quads, voids without diff, skin c/w/d, maew, marlene, call light in reach.
[2025-08-30 09:14] LABS: Anion Gap 8.0 mmol/L (3-11); Blood Urea Nitrogen 3.0 mg/dL (8-24); CO2, Blood 28.0 mmol/L (21-32); Calcium, Blood 8.0 mg/dL (8.5-10.1); Chloride, Blood 101.0 mmol/L (98-108); Creatinine, Blood 0.41 mg/dL (0.40-1.00); Glucose, Blood 93.0 mg/dL (70-99); Magnesium, Blood 1.8 mg/dL (1.6-2.4); Potassium, Blood 3.0 mmol/L (3.5-5.5); Sodium, Blood 134.0 mmol/L (136-145)
[2025-08-30] MEDS ORDERED: Potassium Chl 20MEQ/Water100ML 100 ML IV SCH (10:10)
[2025-08-30] MEDS ORDERED: NS 250 ML IV PRN (10:45)
[2025-08-30] MEDS ORDERED: HYDROmorphone HCl/Pf 1MG SYR IV PRN (11:25)
[2025-08-30] MEDS ORDERED: Amylase/Lipase/Protease DR 20,000 PO SCH (12:30)
[2025-08-30 15:00] VITALS: BP 117/80
--- NOTE | 2025-08-30 18:59 | NUR ---
pt has been pretty painful today, sarted her on oxycodone, is concerned the 1mg dilaudid will not be sufficent, eating minimal food, no further changes this shift. call light in reach.
[2025-08-30 19:43] VITALS: BP 126/84
[2025-08-31 02:44] VITALS: BP 121/81
[2025-08-31 05:40] LABS: BASOPHILS ABSOLUTE AUTO 0.01 K/mm3 (0.00-0.23); BASOPHILS PERCENT AUTO 0 % (0-2); EOSINOPHILS ABSOLUTE AUTO 0.06 K/mm3 (0.00-0.68); EOSINOPHILS PERCENT AUTO 1 % (0-6); Hematocrit 25.8 % (33.0-51.0); Hemoglobin 8.8 g/dL (11.5-16.0); IMMATURE GRAN ABSOLUTE AUTO 0.03 K/mm3 (0.00-0.10); IMMATURE GRAN PERCENT AUTO 0 % (0-1); LYMPHOCYTES ABSOLUTE AUTO 1.05 K/mm3 (0.84-5.20); LYMPHOCYTES PERCENT AUTO 13 % (21-46); MONOCYTES ABSOLUTE AUTO 0.76 K/mm3 (0.16-1.47); MONOCYTES PERCENT AUTO 10 % (4-13); Mean Corpuscular HGB Conc 34.1 g/dL (31.5-36.5); Mean Corpuscular Volume 81 fL (80-100); NEUTROPHILS ABSOLUTE AUTO 6.09 K/mm3 (1.96-9.15); NEUTROPHILS PERCENT AUTO 76 % (41-73); NRBC ABSOLUTE 0.00 K/mm3 (0.00-0.02); NRBC Auto 0.0 /100 WBC (0.0-0.2); Platelet Count 157 K/mm3 (150-400); RDW Coefficient Variation 13.4 % (11.7-14.2); RDW Standard Deviation 40.0 fL (35.1-46.3)
[2025-08-31 06:06] LABS: Anion Gap 9.0 mmol/L (3-11); Blood Urea Nitrogen 4.0 mg/dL (8-24); CO2, Blood 25.0 mmol/L (21-32); Calcium, Blood 8.1 mg/dL (8.5-10.1); Chloride, Blood 100.0 mmol/L (98-108); Creatinine, Blood 0.43 mg/dL (0.40-1.00); Glucose, Blood 191.0 mg/dL (70-99); Magnesium, Blood 1.8 mg/dL (1.6-2.4); Potassium, Blood 3.2 mmol/L (3.5-5.5); Sodium, Blood 131.0 mmol/L (136-145)
--- NOTE | 2025-08-31 06:21 | NUR ---
SHIFT SUMMARY PT WITH INCREASED PAIN, MORE EPIGASTRIC PAIN, AND C/O INCREASED ABDOMINAL BLOATING AT START OF SHIFT. PT MEDICATED FOR PAIN AND ABDOMINAL DISCOMFORT PER EMAR. PT STATES PAIN IS MORE MANAGEABLE THIS AM. PT UP INDEPENDENTLY IN ROOM. IVF CONTINUES TO INFUSE PER ORDER. PT TOLERATING LIQUIDS DURING THE NIGHT. PT SLEPT ONLY VERY SHORT INTERVALS DURING THE NIGHT.
[2025-08-31 07:23] VITALS: BP 113/83
[2025-08-31 10:14] LABS: Ferritin, Serum 141.0 ng/mL (8-252); Total Iron Binding Capacity 271.0 ug/dL (250-450)
[2025-08-31] MEDS ORDERED: Insulin Human Lispro 100 Units/ML 3ML Syringe SC SCH (11:30)
[2025-08-31 15:58] VITALS: BP 115/83
--- NOTE | 2025-08-31 19:24 | NUR ---
SHIFT SUMMARY PT A&OX4. PT ADMITTED DUE TO ACUTE PANCREATITIS. PT REPORTED THIS AM CHEST PAIN WHILE DR. CRESPO IN ROOM, ORDERED NOW EKG, EKG COMPLETE, BY SUPERVISOR SEWER SYSTEM ELIANA MONROY RELAYED RESULTS TO . PT HAS NOT REPORTED CHEST PAIN SINCE. PT REPORTS NO SOB. PT REPORTS ABD PAIN, PAIN MANAGED BY HEAT. PT INDEPENDENT IN ROOM. PT VSS. PT ON ROOM AIR, SPO2 93%. PT ACHS CBG CHECKS NOW. Q6 D/C. PT REPORTS INTERMITTENT NAUSEA. NAUSEA MANAGED PER EMAR. PT DIET ADVANCED TO HEART HEALTHY REGULAR TEXTURED DIET. PT REPORTS REMAINS IN PAIN POST DINNER. PT IN BED, BED IN LOWEST POSITION, LOCKED, CALL LIGHT IN REACH. LR RUNNING AT 125ML/HR. PT GOT IV POTASSIUM CHLORIDE THIS SHIFT.
[2025-08-31 20:31] VITALS: BP 110/77
[2025-09-01 04:46] VITALS: BP 109/75
[2025-09-01 05:56] LABS: BASOPHILS ABSOLUTE AUTO 0.02 K/mm3 (0.00-0.23); BASOPHILS PERCENT AUTO 0 % (0-2); EOSINOPHILS ABSOLUTE AUTO 0.11 K/mm3 (0.00-0.68); EOSINOPHILS PERCENT AUTO 2 % (0-6); Hematocrit 24.5 % (33.0-51.0); Hemoglobin 8.3 g/dL (11.5-16.0); IMMATURE GRAN ABSOLUTE AUTO 0.06 K/mm3 (0.00-0.10); IMMATURE GRAN PERCENT AUTO 1 % (0-1); LYMPHOCYTES ABSOLUTE AUTO 1.10 K/mm3 (0.84-5.20); LYMPHOCYTES PERCENT AUTO 17 % (21-46); MONOCYTES ABSOLUTE AUTO 0.76 K/mm3 (0.16-1.47); MONOCYTES PERCENT AUTO 12 % (4-13); Mean Corpuscular HGB Conc 33.9 g/dL (31.5-36.5); Mean Corpuscular Volume 82 fL (80-100); NEUTROPHILS ABSOLUTE AUTO 4.36 K/mm3 (1.96-9.15); NEUTROPHILS PERCENT AUTO 68 % (41-73); NRBC ABSOLUTE 0.00 K/mm3 (0.00-0.02); NRBC Auto 0.0 /100 WBC (0.0-0.2); Platelet Count 159 K/mm3 (150-400); RDW Coefficient Variation 13.8 % (11.7-14.2); RDW Standard Deviation 41.0 fL (35.1-46.3)
[2025-09-01 06:16] LABS: Alanine Aminotransfer (ALT/SGP 19.0 U/L (12-78); Albumin, Blood 2.4 g/dL (3.4-5.0); Albumin/Globulin Ratio 0.8 (0.8-1.8); Anion Gap 8.0 mmol/L (3-11); Aspartate Aminotrans (AST/SGOT 11.0 U/L (12-37); Bilirubin, Total 0.9 mg/dL (0.1-1.0); Blood Urea Nitrogen 4.0 mg/dL (8-24); CO2, Blood 27.0 mmol/L (21-32); Calcium, Blood 8.1 mg/dL (8.5-10.1); Chloride, Blood 102.0 mmol/L (98-108); Creatinine, Blood 0.43 mg/dL (0.40-1.00); Globulin, Blood 3.2 g/dL (2.2-4.0); Glucose, Blood 177.0 mg/dL (70-99); Potassium, Blood 3.4 mmol/L (3.5-5.5); Sodium, Blood 134.0 mmol/L (136-145); Total Protein, Blood 5.6 g/dL (6.4-8.2)
--- NOTE | 2025-09-01 06:41 | NUR ---
SHIFT SUMMARY PT MEDICATED FOR PAIN AND NAUSEA PER EMAR- STATES PAIN IS OVERALL IMPROVING. PT UP INDEPENDENT IN ROOM. IVF INFUSING PER ORDER. PT SLEPT INTERMITTENTLY DURING THE NIGHT.
[2025-09-01] MEDS ORDERED: Potassium Chl 20MEQ/Water100ML 100 ML IV STA (06:52)
[2025-09-01 07:55] VITALS: BP 111/71
[2025-09-01] MEDS ORDERED: Amylase/Lipase/Protease DR 20,000 PO SCH ×2 (08:00→08:30)
--- NOTE | 2025-09-01 09:00 | NUR ---
pt laying in bed awake a/ox4, pleasant and cooperative with care, follows commands well, reports constant pain in upper abd, lungs are clear t/o, dim in bases, resp even and unlabored, no cough noted, hrr, no edema noted, ppp+1, cap refill<3 sec, vs stable, afebrile, piv to lfa, site is clear and patent, btx4, abd flat soft, tender, voids without diff, skin c/w/d, maew, marlene, up ad marifer in room, gait noted to be steady, call light in reach.
[2025-09-01] MEDS ORDERED: Iron Dextran 50 MG / ML 2ML Vial IV ONE (09:10)
[2025-09-01] MEDS ORDERED: Iron Dextran 975 MG in NS 250 ML IV ONE (10:30)
[2025-09-01 15:56] VITALS: BP 125/82
--- NOTE | 2025-09-01 17:48 | NUR ---
Pt in good spirits tonight, had a pretty good day, still requiring regular pain meds, is tolerating some food, no further changes this shift, call light in reach.
[2025-09-01 19:28] VITALS: BP 120/78
--- NOTE | 2025-09-02 04:00 | NUR ---
END OF SHIFT SUMMARY: AxOx4. FULL CODE. ADMITTED FOR ACUTE PANCREATITS. PATIENT IS ON A CONSISTENT CARB DIET TO ADVANCE TOLERATED. PATIENT IS ABLE TO MAKE NEEDS KNOWN. PATIENT CAN ADVOCATE FOR NEEDS. INDEPENDENT IN THE ROOM AND CONTINENT OF BOWEL AND BLADDER. NO BM IN A FEW DAYS PER PATIENT. PATIENT TAKES MEDS WHOLE WITH FLUIDS. PATIENT HAD PAIN THIS SHIFT AND WAS MEDICATED PER EMAR. BED IN LOWEST POSITION. CALL LIGHT WITHIN REACH AND PATIENT HAS BEEN EDUCATED ON HOW TO USE. WILL REPORT TO ONCOMING NURSE.
[2025-09-02 05:44] LABS: BASOPHILS ABSOLUTE AUTO 0.02 K/mm3 (0.00-0.23); BASOPHILS PERCENT AUTO 0 % (0-2); EOSINOPHILS ABSOLUTE AUTO 0.13 K/mm3 (0.00-0.68); EOSINOPHILS PERCENT AUTO 2 % (0-6); Hematocrit 25.9 % (33.0-51.0); Hemoglobin 8.4 g/dL (11.5-16.0); IMMATURE GRAN ABSOLUTE AUTO 0.04 K/mm3 (0.00-0.10); IMMATURE GRAN PERCENT AUTO 1 % (0-1); LYMPHOCYTES ABSOLUTE AUTO 1.41 K/mm3 (0.84-5.20); LYMPHOCYTES PERCENT AUTO 25 % (21-46); MONOCYTES ABSOLUTE AUTO 0.66 K/mm3 (0.16-1.47); MONOCYTES PERCENT AUTO 12 % (4-13); Mean Corpuscular HGB Conc 32.4 g/dL (31.5-36.5); Mean Corpuscular Volume 84 fL (80-100); NEUTROPHILS ABSOLUTE AUTO 3.38 K/mm3 (1.96-9.15); NEUTROPHILS PERCENT AUTO 60 % (41-73); NRBC ABSOLUTE 0.00 K/mm3 (0.00-0.02); NRBC Auto 0.0 /100 WBC (0.0-0.2); Platelet Count 191 K/mm3 (150-400); RDW Coefficient Variation 13.8 % (11.7-14.2); RDW Standard Deviation 41.8 fL (35.1-46.3)
[2025-09-02 06:19] LABS: Alanine Aminotransfer (ALT/SGP 18.0 U/L (12-78); Albumin, Blood 2.7 g/dL (3.4-5.0); Albumin/Globulin Ratio 0.8 (0.8-1.8); Anion Gap 8.0 mmol/L (3-11); Aspartate Aminotrans (AST/SGOT 9.0 U/L (12-37); Bilirubin, Total 0.5 mg/dL (0.1-1.0); Blood Urea Nitrogen 3.0 mg/dL (8-24); CO2, Blood 29.0 mmol/L (21-32); Calcium, Blood 8.5 mg/dL (8.5-10.1); Chloride, Blood 102.0 mmol/L (98-108); Creatinine, Blood 0.44 mg/dL (0.40-1.00); Globulin, Blood 3.4 g/dL (2.2-4.0); Glucose, Blood 143.0 mg/dL (70-99); Potassium, Blood 3.5 mmol/L (3.5-5.5); Sodium, Blood 135.0 mmol/L (136-145); Total Protein, Blood 6.1 g/dL (6.4-8.2)
[2025-09-02 07:09] VITALS: BP 111/75
[2025-09-02] MEDS ORDERED: HYDROmorphone HCl/Pf 1MG SYR IV PRN ×2 (08:35→17:10)
--- NOTE | 2025-09-02 09:00 | NUR ---
Pt laying in bed awake, a/ox4, states she slept most of the night, feels like she's progressing, pain is lessening, pleasant and cooperative with care, follows commands well, reports h/a this am, lungs are clear t/o, resp even and unlabored, no cough noted, hrr, no edema noted, ppp+2, cap refill<3 sec, piv to lfa site is clear and patent btx4, abd flat soft nontender, voids without diff, skin c/w/d, marlene gonzales, call light in reach.
[2025-09-02] MEDS ORDERED: FentaNYL Citrate 50 MCG/ML 2 ML Injection IV ONE (14:25)
[2025-09-02 14:59] LABS: Lactate Dehydrogenase (Ld),Bld 177 U/L (100-240)
--- NOTE | 2025-09-02 15:05 | NUR ---
[id number] patient c/o sudden severe llq pain, sharp and stabbing. patient stated this pain was different than other pain she has experienced with pancreatitis and it is in a location slightly below where the pain usually is. this rn called dr. murphy to report new pain and administered 0.5mg iv hydromorphone. this only reduced patient pain by 1, taking it from 10/10 to 9/10. dr. murphy consulted and approved to give the patient another 0.5mg of iv hydromorphone now and send patient for stat ct. break nurse reported that patient pain was still at 7/10 so break nurse administered iv fentanyl 50mcg ordered as a one time dose by the doctor.
[2025-09-02 15:36] VITALS: BP 137/91
--- NOTE | 2025-09-02 17:35 | NUR ---
SHIFT SUMMARY PATIENT IS A&OX4, PLEASANT AND COOPERATIVE WITH CARE. SHE IS ON ROOM AIR AND HAS TELE RUNNING NSR. INDEPENDENT IN THE ROOM. HAD A SHOWER THIS EVENING. HAD AN EPISODE OF INTENSE PAIN IN A DIFFERENT LOCATION THAN SHE PREVIOUSLY HAD, THIS RN CALLED THE DOCTOR TO THE ROOM. DOCTOR INCREASED PAIN MEDICATION AND SENT PATIENT FOR CT WHICH DID REVEAL FLUID COLLECTION AND WORSENING PANCREATITIS WITH A PSEUDOCYST. PATIENT PAIN WAS FINALLY CONTROLLED AND PAIN REGIME CHANGED BY THE PGY1 DOCTOR. SHE CALLS APPROPRIATELY. BED IS LOW AND LOCKED, CALL LIGHT IN REACH.
[2025-09-02 19:24] VITALS: BP 121/83
[2025-09-03 03:12] VITALS: BP 108/73
[2025-09-03 05:34] LABS: BASOPHILS ABSOLUTE AUTO 0.03 K/mm3 (0.00-0.23); BASOPHILS PERCENT AUTO 0 % (0-2); EOSINOPHILS ABSOLUTE AUTO 0.09 K/mm3 (0.00-0.68); EOSINOPHILS PERCENT AUTO 1 % (0-6); Hematocrit 28.4 % (33.0-51.0); Hemoglobin 9.3 g/dL (11.5-16.0); IMMATURE GRAN ABSOLUTE AUTO 0.05 K/mm3 (0.00-0.10); IMMATURE GRAN PERCENT AUTO 1 % (0-1); LYMPHOCYTES ABSOLUTE AUTO 1.47 K/mm3 (0.84-5.20); LYMPHOCYTES PERCENT AUTO 19 % (21-46); MONOCYTES ABSOLUTE AUTO 0.89 K/mm3 (0.16-1.47); MONOCYTES PERCENT AUTO 12 % (4-13); Mean Corpuscular HGB Conc 32.7 g/dL (31.5-36.5); Mean Corpuscular Volume 82 fL (80-100); NEUTROPHILS ABSOLUTE AUTO 5.10 K/mm3 (1.96-9.15); NEUTROPHILS PERCENT AUTO 67 % (41-73); NRBC ABSOLUTE 0.00 K/mm3 (0.00-0.02); NRBC Auto 0.0 /100 WBC (0.0-0.2); Platelet Count 224 K/mm3 (150-400); RDW Coefficient Variation 13.9 % (11.7-14.2); RDW Standard Deviation 41.9 fL (35.1-46.3)
[2025-09-03 05:56] LABS: Alanine Aminotransfer (ALT/SGP 20.0 U/L (12-78); Albumin, Blood 2.8 g/dL (3.4-5.0); Albumin/Globulin Ratio 0.7 (0.8-1.8); Anion Gap 10.0 mmol/L (3-11); Aspartate Aminotrans (AST/SGOT 15.0 U/L (12-37); Bilirubin, Total 0.6 mg/dL (0.1-1.0); Blood Urea Nitrogen 5.0 mg/dL (8-24); CO2, Blood 28.0 mmol/L (21-32); Calcium, Blood 9.0 mg/dL (8.5-10.1); Chloride, Blood 100.0 mmol/L (98-108); Creatinine, Blood 0.44 mg/dL (0.40-1.00); Globulin, Blood 4.2 g/dL (2.2-4.0); Glucose, Blood 141.0 mg/dL (70-99); Potassium, Blood 3.2 mmol/L (3.5-5.5); Sodium, Blood 135.0 mmol/L (136-145); Total Protein, Blood 7.0 g/dL (6.4-8.2)
--- NOTE | 2025-09-03 06:21 | NUR ---
SHIFT SUMMARY PT A&OX4 AND ANSWERS QUESTIONS APPROPRIATELY. PT IS INDEPENDENT IN THE ROOM. PT VSS, NO COMPLAINTS OF CP/PRESSURE OR SOB. PT RECEIVED SCHEDULED AND PRN MEDICATIONS. PT PAINFUL DUE TO ACUTE PANCREATITIS, PAIN MEDICATION GIVEN ALONG WITH NONPHARMACOLOGICAL INTERVENTIONS (HEAT, UNINTERUPTED REST, REPOSITIONED). PT SPENT MOST OF SHIFT IN ROOM QUIET, OR WALKING THE HALLS. NO ACUTE EVENTS AT THIS TIME. PT LEFT IN A POSITION OF SAFETY WITH FALL PRECAUTIONS IN PLACE AND CALL LIGHT IN REACH.
[2025-09-03] MEDS ORDERED: HYDROmorphone HCl/Pf 1MG SYR IV PRN ×3 (06:25→15:55)
[2025-09-03 07:52] VITALS: BP 104/69
[2025-09-03 15:32] VITALS: BP 107/71
[2025-09-03 19:47] VITALS: BP 114/73
--- NOTE | 2025-09-03 20:39 | NUR ---
END OF SHIFT SUMMARY: A&Ox4. PLEASANT AND COOPERATIVE WITH CARE. CALLS APPROPRIATELY AND IS ABLE TO ADVOCATE NEEDS EFFECTIVELY. VSS. BREATHING EVEN AND UNLABORED c RA. CONTINENT OF BOWEL AND BLADDER. TOLERATING PART OF DIET. EPIGASTRIC PAIN WORSE AFTER EATING. AMBULATES INDEPENDENTLY. MEDS WHOLE c FLUIDS. BED IN LOWEST POSITION, CALL LIGHT WITHIN REACH, ALL NEEDS MET. REPORT TO ONCOMING NURSE.
[2025-09-04 04:39] VITALS: BP 120/79
[2025-09-04 04:54] LABS: BASOPHILS ABSOLUTE AUTO 0.02 K/mm3 (0.00-0.23); BASOPHILS PERCENT AUTO 0 % (0-2); EOSINOPHILS ABSOLUTE AUTO 0.11 K/mm3 (0.00-0.68); EOSINOPHILS PERCENT AUTO 2 % (0-6); Hematocrit 27.4 % (33.0-51.0); Hemoglobin 9.0 g/dL (11.5-16.0); IMMATURE GRAN ABSOLUTE AUTO 0.10 K/mm3 (0.00-0.10); IMMATURE GRAN PERCENT AUTO 1 % (0-1); LYMPHOCYTES ABSOLUTE AUTO 1.58 K/mm3 (0.84-5.20); LYMPHOCYTES PERCENT AUTO 21 % (21-46); MONOCYTES ABSOLUTE AUTO 0.91 K/mm3 (0.16-1.47); MONOCYTES PERCENT AUTO 12 % (4-13); Mean Corpuscular HGB Conc 32.8 g/dL (31.5-36.5); Mean Corpuscular Volume 84 fL (80-100); NEUTROPHILS ABSOLUTE AUTO 4.73 K/mm3 (1.96-9.15); NEUTROPHILS PERCENT AUTO 64 % (41-73); NRBC ABSOLUTE 0.00 K/mm3 (0.00-0.02); NRBC Auto 0.0 /100 WBC (0.0-0.2); Platelet Count 240 K/mm3 (150-400); RDW Coefficient Variation 14.0 % (11.7-14.2); RDW Standard Deviation 42.3 fL (35.1-46.3)
[2025-09-04 05:22] LABS: Alanine Aminotransfer (ALT/SGP 16.0 U/L (12-78); Albumin, Blood 2.4 g/dL (3.4-5.0); Albumin/Globulin Ratio 0.6 (0.8-1.8); Anion Gap 10.0 mmol/L (3-11); Aspartate Aminotrans (AST/SGOT 14.0 U/L (12-37); Bilirubin, Total 0.5 mg/dL (0.1-1.0); Blood Urea Nitrogen 6.0 mg/dL (8-24); CO2, Blood 29.0 mmol/L (21-32); Calcium, Blood 9.1 mg/dL (8.5-10.1); Chloride, Blood 101.0 mmol/L (98-108); Creatinine, Blood 0.5 mg/dL (0.40-1.00); Globulin, Blood 4.1 g/dL (2.2-4.0); Glucose, Blood 162.0 mg/dL (70-99); Potassium, Blood 3.5 mmol/L (3.5-5.5); Sodium, Blood 136.0 mmol/L (136-145); Total Protein, Blood 6.5 g/dL (6.4-8.2)
--- NOTE | 2025-09-04 06:20 | NUR ---
SHIFT SUMMARY PT A&OX4 AND ANSWERS QUESTIONS APPROPRIATELY. PT VSS, NO COMPLAINTS OF CP/PRESSURE OR SOB. PT VERBALIZES HAVING DIFFICULTY SLEEPING DUE TO NEARBY PTS VOLUME. NEARBY PT TRANSFERRED ROOMS, MELATONIN ADMINISTERED PO, PT VERBALIZED LATER IN SHIFT HAVING MORE ADEQUATE SLEEP ONCE THE MELATONIN WAS ADMINISTERED AND THE LOUD ENVIRONMENT CHANGED. PT RECEIVEDE SCHEDULED AND PO MEDICATIONS. PT PAIN APPEARS MORE CONTROLLED COMPARED TO 16-17 NOC. NO ACUTE EVENTS AT THIS TIME. FALL PRECAUTIONS IN PLACE AND CALL LIGHT IN REACH.
[2025-09-04 07:39] VITALS: BP 99/66
[2025-09-04] MEDS ORDERED: HYDROmorphone HCl/Pf 1MG SYR IV PRN ×2 (10:30→17:20)
[2025-09-04] MEDS ORDERED: HYDROmorphone HCl/Pf 1MG SYR IV ONE (15:10)
[2025-09-04 15:30] VITALS: BP 132/81
--- NOTE | 2025-09-04 17:47 | NUR ---
END OF SHIFT SUMMARY: A&Ox4. PLEASANT AND COOPERATIVE WITH CARE. CALLS APPROPRIATELY AND IS ABLE TO ADVOCATE NEEDS EFFECTIVELY. VSS. BREATHING EVEN AND UNLABORED c RA. CONTINENT OF BOWEL AND BLADDER; LBM TODAY. TOLERATING DIET POORLY AND ONLY ABLE TO CONSUME TWO OR THREE BITES; EXPERIENCES SEVERE LEFT ABD PAIN SHORTLY THEREAFTER. AMBULATES INDEPENDENTLY. MEDS WHOLE c FLUIDS. INCREASED DIFFICULTY CONTROLLING PAIN TODAY. MEDS CHANGED Q2H TO Q4H PRN. PATIENT c SUDDEN ONSET LLQ AND LEFT SHOULDER PAIN. DR PACK TO BEDSIDE. V.O. FOR ONE-TIME DOSE OF 1MG DILAUDID. LITTLE EFFECT. ORDER CHANGED BACK TO Q2H PRN D/T TO UNPREDICTABILITY OF PAIN. DISCUSSION WITH PROVIDER AND THIS RN REGARDING CONSERVATIVE USE OF IV PAIN MEDS AND ROUTINE UTILIZATION OF PO MEDS TO KEEP PAIN AT BAY. ORDER CHANGED TO Q2H FOR DILAUDID BUT PT UNDERSTANDS TO ONLY USE THIS IN SEVERE BTP FROM OXY. PT TEARFUL, TODAY, STATING, "I JUST WANT TO GET BETTER AND GET HOME." THERAPEUTIC LISTENING PROVIDED. BED IN LOWEST POSITION, CALL LIGHT WITHIN REACH, ALL NEEDS MET. REPORT TO ONCOMING NURSE.
[2025-09-04 19:36] VITALS: BP 128/75
--- NOTE | 2025-09-05 02:56 | NUR ---
PAIN CONTROL/ CALL TO MID LEVEL PROJECT MANAGER HCP PATIENT IS REQUIRING Q2 DILAUDID AND Q4 OXYCODONE PRN ORDERS RIGHT ON THE JANET OF SCHEDULED. CALL TO DR. HERNANDEZ THE NOTES INDICATE THAT THE DILAUDID WAS TO BE USED SPARINGLY. HE ADVISED TO MEDICATE TO THE PATIENT'S COMFORT AND ADDRESS THE USAGE OF PRN ORDERS WITH THE PATIENT'S ATTENDING HCP.
--- NOTE | 2025-09-05 05:01 | NUR ---
INCREASE IN PAIN- PATIENT IS REQUESTING HER CARE BE ESCALATED NOW. SHE REPORTS THAT THE PAIN IS UNBEARABLE AND THE CARE PLAN NOT SUFFICENT. I AM REQUESTING THAT THE CHARGE NURSE SPEAK TO HER.
[2025-09-05] MEDS ORDERED: HYDROmorphone HCl/Pf 1MG SYR IV ONE (05:35)
[2025-09-05 05:45] VITALS: BP 152/85
--- NOTE | 2025-09-05 05:49 | NUR ---
SHIFT NOTE- Patient is requiring Q2 Dilaudid and Q6 Oxycodone to control her abdominal pain. Orientation- A/Ox4 Ambulation- SBA due to lines. Independent if not on pump. Medication- Whole with water. Toileting- continent x 2
[2025-09-05 06:15] LABS: BASOPHILS ABSOLUTE AUTO 0.03 K/mm3 (0.00-0.23); BASOPHILS PERCENT AUTO 0 % (0-2); EOSINOPHILS ABSOLUTE AUTO 0.06 K/mm3 (0.00-0.68); EOSINOPHILS PERCENT AUTO 1 % (0-6); Hematocrit 29.4 % (33.0-51.0); Hemoglobin 9.5 g/dL (11.5-16.0); IMMATURE GRAN ABSOLUTE AUTO 0.12 K/mm3 (0.00-0.10); IMMATURE GRAN PERCENT AUTO 1 % (0-1); LYMPHOCYTES ABSOLUTE AUTO 1.38 K/mm3 (0.84-5.20); LYMPHOCYTES PERCENT AUTO 14 % (21-46); MONOCYTES ABSOLUTE AUTO 0.80 K/mm3 (0.16-1.47); MONOCYTES PERCENT AUTO 8 % (4-13); Mean Corpuscular HGB Conc 32.3 g/dL (31.5-36.5); Mean Corpuscular Volume 84 fL (80-100); NEUTROPHILS ABSOLUTE AUTO 7.73 K/mm3 (1.96-9.15); NEUTROPHILS PERCENT AUTO 76 % (41-73); NRBC ABSOLUTE 0.00 K/mm3 (0.00-0.02); NRBC Auto 0.0 /100 WBC (0.0-0.2); Platelet Count 260 K/mm3 (150-400); RDW Coefficient Variation 14.4 % (11.7-14.2); RDW Standard Deviation 43.7 fL (35.1-46.3)
[2025-09-05 06:35] LABS: Alanine Aminotransfer (ALT/SGP 16.0 U/L (12-78); Albumin, Blood 2.4 g/dL (3.4-5.0); Albumin/Globulin Ratio 0.6 (0.8-1.8); Anion Gap 10.0 mmol/L (3-11); Aspartate Aminotrans (AST/SGOT 16.0 U/L (12-37); Bilirubin, Total 0.4 mg/dL (0.1-1.0); Blood Urea Nitrogen 5.0 mg/dL (8-24); CO2, Blood 26.0 mmol/L (21-32); Calcium, Blood 8.5 mg/dL (8.5-10.1); Chloride, Blood 99.0 mmol/L (98-108); Creatinine, Blood 0.38 mg/dL (0.40-1.00); Globulin, Blood 3.9 g/dL (2.2-4.0); Glucose, Blood 182.0 mg/dL (70-99); Potassium, Blood 3.3 mmol/L (3.5-5.5); Sodium, Blood 132.0 mmol/L (136-145); Total Protein, Blood 6.3 g/dL (6.4-8.2)
[2025-09-05] MEDS ORDERED: Mag Sulfate 1 GM/D5% 100ML 100 ML IV STA (07:22)
[2025-09-05 07:38] VITALS: BP 131/83
[2025-09-05] MEDS ORDERED: FentaNYL Citrate 50 MCG/ML 2 ML Injection IV ONE (09:00)
--- NOTE | 2025-09-05 09:41 | NUR ---
RESIDENTS ROUNDED EARLY THIS MORNING, PATIENT HAD EXTRA DOSE OF FENTANYL, ABD CT DONE, NEW LABS ORDERED, NOW PATIENT TO HAVE A MRI, PATIENT REQUESTED PATIENT OC, NOTIFIED SYSTEMS ENGINEERING MANAGER
[2025-09-05 15:47] VITALS: BP 128/80
--- NOTE | 2025-09-05 18:06 | NUR ---
NO ACUTE CHANGES, PATIENT HAD INCREASED PAIN, PAIN MEDICATIONS INCREASED, PATIENT ADVOCATE NOTIFIED FOR PATIENT, PATIENT HAD A CT AND MRI TODAY, VSS, INDEPENDANT ON UNIT, CALL LIGHT WITH IN REACH, WILL RLEAY TO PM RN
[2025-09-05 19:46] VITALS: BP 115/77
[2025-09-06 04:26] VITALS: BP 112/81
[2025-09-06 05:13] LABS: BASOPHILS ABSOLUTE AUTO 0.06 K/mm3 (0.00-0.23); BASOPHILS PERCENT AUTO 0 % (0-2); EOSINOPHILS ABSOLUTE AUTO 0.08 K/mm3 (0.00-0.68); EOSINOPHILS PERCENT AUTO 1 % (0-6); Hematocrit 31.2 % (33.0-51.0); Hemoglobin 9.8 g/dL (11.5-16.0); IMMATURE GRAN ABSOLUTE AUTO 0.14 K/mm3 (0.00-0.10); IMMATURE GRAN PERCENT AUTO 1 % (0-1); LYMPHOCYTES ABSOLUTE AUTO 1.59 K/mm3 (0.84-5.20); LYMPHOCYTES PERCENT AUTO 11 % (21-46); MONOCYTES ABSOLUTE AUTO 1.10 K/mm3 (0.16-1.47); MONOCYTES PERCENT AUTO 8 % (4-13); Mean Corpuscular HGB Conc 31.4 g/dL (31.5-36.5); Mean Corpuscular Volume 84 fL (80-100); NEUTROPHILS ABSOLUTE AUTO 11.46 K/mm3 (1.96-9.15); NEUTROPHILS PERCENT AUTO 79 % (41-73); NRBC ABSOLUTE 0.00 K/mm3 (0.00-0.02); NRBC Auto 0.0 /100 WBC (0.0-0.2); Platelet Count 308 K/mm3 (150-400); RDW Coefficient Variation 13.8 % (11.7-14.2); RDW Standard Deviation 42.7 fL (35.1-46.3)
[2025-09-06 05:39] LABS: Alanine Aminotransfer (ALT/SGP 16.0 U/L (12-78); Albumin, Blood 2.6 g/dL (3.4-5.0); Albumin/Globulin Ratio 0.7 (0.8-1.8); Anion Gap 12.0 mmol/L (3-11); Aspartate Aminotrans (AST/SGOT 12.0 U/L (12-37); Bilirubin, Total 0.4 mg/dL (0.1-1.0); Blood Urea Nitrogen 6.0 mg/dL (8-24); CO2, Blood 25.0 mmol/L (21-32); Calcium, Blood 8.5 mg/dL (8.5-10.1); Chloride, Blood 99.0 mmol/L (98-108); Creatinine, Blood 0.43 mg/dL (0.40-1.00); Globulin, Blood 3.9 g/dL (2.2-4.0); Glucose, Blood 143.0 mg/dL (70-99); Potassium, Blood 3.7 mmol/L (3.5-5.5); Sodium, Blood 132.0 mmol/L (136-145); Total Protein, Blood 6.5 g/dL (6.4-8.2)
--- NOTE | 2025-09-06 06:31 | NUR ---
SHIFT SUMMARY; PT A/OX4 AND INDEPENDENT IN THE ROOM. THROUGHOUT THE SHIFT, PT S PAIN HAS STAYED CONSISTENTLY AT 8/10 ON THE 0-10 PAIN SCALE. IV PAIN MEDICATION ADMINISTRATION AT BEGINNING OF SHIFT DELAYED DUE TO L FA IV NO LONGER PATENT. R RA IV PLACED AND PT MEDICATION W/ PAIN MEDICATION PER EMAR. PAIN OBSERVED TO BE BETTER CONTROLLED TOWARDS THE END OF SHIFT. PT'S FOOD INTAKE LIMITED, HOWEVER ABLE TO TOLERATE PO WATER W/ SMALL SIPS. PT DENIES HAVING BM THIS SHIFT. VSS, AFEBRILE. BED IN LOWEST POSITION WITH CALL LIGHT WITHIN REACH.
[2025-09-06 07:27] VITALS: BP 113/80
--- NOTE | 2025-09-06 09:33 | NUR ---
Pt up in room ad marifer, gait steady, a/ox4, pleasant and cooperative with care, follows commands well, reports pain 8/10, janet and tylenol was given, lungs are clear dim in bases, resp even and unlabored, no cough noted, on r/a, hrr, 2+ edema noted to right foot, trace edema to left, ppp+2, cap refill<3 sec, vs sec, vs stable, afebrile, piv to rfa site is clear and patent, infusing lr as ordered, btx4, abd flat soft nontender, voids without diff, skin c/w/d, maew, marlene, call light in reach.
[2025-09-06] MEDS ORDERED: HYDROmorphone HCl/Pf 1MG SYR IV PRN (13:20)
[2025-09-06] MEDS ORDERED: Ketorolac Tromethamine 15mg Vial IV PRN (13:25)
--- NOTE | 2025-09-06 18:24 | NUR ---
pt has been painful today, never getting down from a 03/27, gave a dose of toradol without relief, no further changes this shift, call light in reach.
[2025-09-06 19:45] VITALS: BP 110/76
--- NOTE | 2025-09-06 22:45 | NUR ---
PROVIDER CONTACTED DISCUSSED WITH PROVIDER PT HAS NEW 1+ PITTING EDEMA TO EXTREMITIES AND ABDOMEN. AT THIS TIME PROVIDER ADVISES HOLDING IV FLUIDS (NS @ 75 ML/HR) FOR REMAINDER OF EVENING.
[2025-09-07 04:16] VITALS: BP 107/75
[2025-09-07 05:32] LABS: BASOPHILS ABSOLUTE AUTO 0.04 K/mm3 (0.00-0.23); BASOPHILS PERCENT AUTO 0 % (0-2); EOSINOPHILS ABSOLUTE AUTO 0.16 K/mm3 (0.00-0.68); EOSINOPHILS PERCENT AUTO 2 % (0-6); Hematocrit 27.4 % (33.0-51.0); Hemoglobin 8.8 g/dL (11.5-16.0); IMMATURE GRAN ABSOLUTE AUTO 0.11 K/mm3 (0.00-0.10); IMMATURE GRAN PERCENT AUTO 1 % (0-1); LYMPHOCYTES ABSOLUTE AUTO 1.93 K/mm3 (0.84-5.20); LYMPHOCYTES PERCENT AUTO 20 % (21-46); MONOCYTES ABSOLUTE AUTO 0.73 K/mm3 (0.16-1.47); MONOCYTES PERCENT AUTO 8 % (4-13); Mean Corpuscular HGB Conc 32.1 g/dL (31.5-36.5); Mean Corpuscular Volume 84 fL (80-100); NEUTROPHILS ABSOLUTE AUTO 6.73 K/mm3 (1.96-9.15); NEUTROPHILS PERCENT AUTO 70 % (41-73); NRBC ABSOLUTE 0.00 K/mm3 (0.00-0.02); NRBC Auto 0.0 /100 WBC (0.0-0.2); Platelet Count 331 K/mm3 (150-400); RDW Coefficient Variation 13.5 % (11.7-14.2); RDW Standard Deviation 41.6 fL (35.1-46.3)
[2025-09-07 06:18] LABS: Alanine Aminotransfer (ALT/SGP 21.0 U/L (12-78); Albumin, Blood 2.3 g/dL (3.4-5.0); Albumin/Globulin Ratio 0.6 (0.8-1.8); Anion Gap 11.0 mmol/L (3-11); Aspartate Aminotrans (AST/SGOT 21.0 U/L (12-37); Bilirubin, Total 0.3 mg/dL (0.1-1.0); Blood Urea Nitrogen 4.0 mg/dL (8-24); CO2, Blood 28.0 mmol/L (21-32); Calcium, Blood 8.6 mg/dL (8.5-10.1); Chloride, Blood 100.0 mmol/L (98-108); Creatinine, Blood 0.39 mg/dL (0.40-1.00); Globulin, Blood 3.8 g/dL (2.2-4.0); Glucose, Blood 108.0 mg/dL (70-99); Potassium, Blood 3.7 mmol/L (3.5-5.5); Sodium, Blood 135.0 mmol/L (136-145); Total Protein, Blood 6.1 g/dL (6.4-8.2)
[2025-09-07 07:37] VITALS: BP 108/84
--- NOTE | 2025-09-07 07:43 | NUR ---
SHIFT SUMMARY PAIN POORLY MANAGED PER PT DESPITE DILAUDID Q2H AND OXYCODONE Q4H, TORADOL, TYLENOL, INDEPENDENT IN ROOM. A&OX4. RFA IV. PT DRINKING ICE WATER, DID NOT EAT ANYTHING THIS EVENING, BUT DOES TOLERATE BLAND FOODS SUCH POTATO SOUP PRIOR DAY SHIFT. NO BM X3-4 DAYS. INDEPENDENT IN ROOM.
[2025-09-07] MEDS ORDERED: HYDROmorphone HCl/Pf 1MG SYR IV PRN (08:55)
[2025-09-07] MEDS ORDERED: Polyethylene Glycol 3350 17 gm PO PRN (08:57)
[2025-09-07] MEDS ORDERED: Lidocaine 4% 1 Patch TOP PRN (09:30)
[2025-09-07] MEDS ORDERED: Lidocaine 4% 1 Patch TOP ONE (09:35)
[2025-09-07 15:50] VITALS: BP 120/75
--- NOTE | 2025-09-07 18:29 | NUR ---
SHIFT SUMMARY AOX4, IND IN ROOM. C/O LUQ PAIN, MEDICATED PER EMAR. DENIES CP/SOB. PT C/O NUMBNESS TO BILATERAL FEET THAT HAS BEEN IMPROVING. NO ACUTE CHANGES AT THIS TIME.
[2025-09-07 19:27] VITALS: BP 135/89
[2025-09-08 04:19] VITALS: BP 121/75
[2025-09-08 05:53] LABS: BASOPHILS ABSOLUTE AUTO 0.02 K/mm3 (0.00-0.23); BASOPHILS PERCENT AUTO 0 % (0-2); EOSINOPHILS ABSOLUTE AUTO 0.09 K/mm3 (0.00-0.68); EOSINOPHILS PERCENT AUTO 1 % (0-6); Hematocrit 26.0 % (33.0-51.0); Hemoglobin 8.5 g/dL (11.5-16.0); IMMATURE GRAN ABSOLUTE AUTO 0.08 K/mm3 (0.00-0.10); IMMATURE GRAN PERCENT AUTO 1 % (0-1); LYMPHOCYTES ABSOLUTE AUTO 1.34 K/mm3 (0.84-5.20); LYMPHOCYTES PERCENT AUTO 18 % (21-46); MONOCYTES ABSOLUTE AUTO 0.45 K/mm3 (0.16-1.47); MONOCYTES PERCENT AUTO 6 % (4-13); Mean Corpuscular HGB Conc 32.7 g/dL (31.5-36.5); Mean Corpuscular Volume 82 fL (80-100); NEUTROPHILS ABSOLUTE AUTO 5.66 K/mm3 (1.96-9.15); NEUTROPHILS PERCENT AUTO 74 % (41-73); NRBC ABSOLUTE 0.00 K/mm3 (0.00-0.02); NRBC Auto 0.0 /100 WBC (0.0-0.2); Platelet Count 349 K/mm3 (150-400); RDW Coefficient Variation 13.6 % (11.7-14.2); RDW Standard Deviation 41.3 fL (35.1-46.3)
[2025-09-08 06:12] LABS: Alanine Aminotransfer (ALT/SGP 20.0 U/L (12-78); Albumin, Blood 2.2 g/dL (3.4-5.0); Albumin/Globulin Ratio 0.6 (0.8-1.8); Anion Gap 11.0 mmol/L (3-11); Aspartate Aminotrans (AST/SGOT 16.0 U/L (12-37); Bilirubin, Total 0.3 mg/dL (0.1-1.0); Blood Urea Nitrogen 4.0 mg/dL (8-24); CO2, Blood 28.0 mmol/L (21-32); Calcium, Blood 8.3 mg/dL (8.5-10.1); Chloride, Blood 101.0 mmol/L (98-108); Creatinine, Blood 0.37 mg/dL (0.40-1.00); Globulin, Blood 3.8 g/dL (2.2-4.0); Glucose, Blood 138.0 mg/dL (70-99); Potassium, Blood 3.4 mmol/L (3.5-5.5); Sodium, Blood 137.0 mmol/L (136-145); Total Protein, Blood 6.0 g/dL (6.4-8.2)
--- NOTE | 2025-09-08 06:19 | NUR ---
SHIFT SUMMARY; PT A/OX4 AND INDEPENDENT IN THE ROOM. THROUGHOUT THE SHIFT, PT'S PAIN HAS STAYED CONSISTENTLY AT 8/10 ON THE 0-10 PAIN SCALE, W/ LOWEST PAIN REPORTED AT 6/10. PT MEDICATED PER EMAR THROUGHOUT SHIFT. TOWARDS THE END OF SHIFT, PT BECAME ANGRY AND REPORTS THAT SHE DID NOT SLEEP WELL THROUGHOUT THE NIGHT AND QUESTIONED IF SHE WAS RECEIVING THE SAME AMOUNT OF IV MEDICATIONS BEFORE. THIS RN ADVISED THE PT THAT THE MEDICATION HAS BEEN GIVEN 2MG Q2H INTERVALS. PT OFFERED ANTI-ANXIETY MEDICATION PRIOR TO BEDTIME AND PT DID NOT WANT THE MEDICATION AT THAT TIME, NOR REQUESTED IT THROUGHOUT THE NIGHT. PT REPORTS THAT SHE KNEW SOMETHING WAS OFF BECAUSE SHE WASN T ABLE TO "NOD" OFF USUAL. PT REQUESTING TO SPEAK W/ THE DOCTOR IN THE MORNING AND WOULD LIKE CHARGE TO BE NOTIFIED. CREATIVE WRITING TEACHER ON NOC SHIFT AWARE OF SITUATION. PT REPORTS HAVING DECENT APPETITE THROUGHOUT DAY SHIFT. PT HAD GOOD AMOUNT OF URINE OUTPUT. SEE INPUT AND OUTPUT NOTES. NOTABLE NON-PITTING EDEMA SEEN IN BILATERAL FEET. 2+ PEDAL PULSES PALPATED UPON ASSESSMENT. PT DENIES N/V THIS SHIFT AND REMAINS AFEBRILE. BED IN LOWEST POSITION AND CALL LIGHT WITHIN REACH.
[2025-09-08] MEDS ORDERED: Mag Sulfate 1 GM/D5% 100ML 100 ML IV STA (07:11)
[2025-09-08 07:46] VITALS: BP 130/79
--- NOTE | 2025-09-08 09:45 | NUR ---
DOCTOR AT BEDSIDE ROUNDING, THIS RN MEDICATED PT PER EMAR/DR ORDERS FOR 10/10 PAIN, PT DENIES SOB OR NAUSEA AT THIS TIME WILL CONTINUE TO MONITOR FOR ANY NEW S/S.VITALS WNL, A&OX4.
[2025-09-08] MEDS ORDERED: HYDROmorphone HCl/Pf 1MG SYR IV PRN (10:46)
[2025-09-08] MEDS ORDERED: Potassium Chl 20MEQ/Water100ML 100 ML IV STA (10:56)
[2025-09-08 15:10] VITALS: BP 118/77
--- NOTE | 2025-09-08 17:42 | NUR ---
PATIENT A&OX4, NO NAUSEA OR VOMITING THROUGHPUT SHIFT, CONTINUES WITH RECURRENT RT UPPER QUADRANT ABDOMINAL PAIN, MEDICATED WITH PRN IV AND PO PAIN MEDICATIONS Q2 AND Q4HRS PER PT DR ORDERS. PATIENT UP IN ROOM WALKING THROUGHOUT THE DAY, SELF SHOWERED AND MADE HER BED WITH FRESH LINENS. IV MAGNESIUM AND POTASSIUM GIVEN PER EMAR/DR ORDER PATIENT TOLERATED WELL. VITALS WNL, CMS INTACT, PINK WARM AND DRY.BLOOD GLUCOSE WNL BESIDES AT DINNER, YO=[id number], GIVEN 2UNITS INSULIN PER SLIDING SCALE.
[2025-09-08 20:13] VITALS: BP 134/85
[2025-09-09 03:52] VITALS: BP 125/81
[2025-09-09] MEDS ORDERED: Docusate Sodium/Senna 1 Tab PO PRN (06:55)
[2025-09-09] MEDS ORDERED: HYDROmorphone HCl/Pf 1MG SYR IV PRN ×3 (07:00→11:15)
--- NOTE | 2025-09-09 07:31 | NUR ---
SHIFT SUMMARY PT REPORTS HEARTBURN IN EARLY EVENING, IMPROVED WITH TUMS ORDERED BY PROVIDER. CONTINUED PAIN MANAGEMENT PER EMAR FOR PANCREATITIS FLARE. PT PREFERRING MAXIMUM DOSE OF 2 MG IV DILAUDID Q2HP STILL. OVERALL IS WELL APPEARING AND INDEPENDENT IN ROOM, A&OX4. IV IN RFA WELL-APPEARING AFTER MILD DISCOMFORT FOLLOWING IV POTASSIUM SUPPLEMENT YESTERDAY.
[2025-09-09 07:32] VITALS: BP 125/91
[2025-09-09 16:01] VITALS: BP 129/93
--- NOTE | 2025-09-09 18:01 | NUR ---
SHIFT SUMMARY PT A&OX4. PT ADMITTED DUE TO ACUTE PANCREATITIS. PT REPORTS NO SOB, NO CHEST PAIN, PT REPORTS NO NAUSEA. LIDOCAINE PATCH ON L SIDE OF NECK. PT HAS KPAD FOR HEAT AND COMFORT. BOWEL MEDS GIVEN. PT REPORTS CONSTIPATION. PT REPORTS PAIN AT L ABD AND L FLANK, PAIN MEDS GIVEN PER EMAR. DR. PERALTA DECREASED DILAUDID TO 1-1.5MG. PT HAS EDEMA TO BILATERAL LOWER EXTREMITIES. PT ENCOURAGED TO BE MOBILE AND ELEVATE LEGS. PT HAS ACHS CBG. PT GOT INSULIN COVERAGE X1 THIS SHIFT. PT INDEPENDENT IN ROOM. PT VSS. PT IN BED, BED IN LOWEST POSITION, LOCKED, CALL LIGHT IN REACH.
--- NOTE | 2025-09-09 18:11 | NUR ---
NOTE PT REPORTED BM!
[2025-09-09 20:29] VITALS: BP 116/77
[2025-09-10 04:50] VITALS: BP 135/87
--- NOTE | 2025-09-10 05:49 | NUR ---
SHIFT SUMMARY PT IS A&OX4, PLEASANT AND COOPERATIVE WITH CARE. PT REPORTED 8-10/10 ABDOMINAL PAIN, MEDICATED PER EMAR. PT DENIES SOB OR CHEST PAIN. NO ACUTE CHANGES THIS SHIFT. PT RESTED T/O SHIFT WITH EVEN AND UNLABORED RESPIRATIONS, BED IN THE LOWEST POSITION, AND CALL LIGHT WITHIN REACH.
[2025-09-10] MEDS ORDERED: HYDROmorphone HCl/Pf 1MG SYR IV PRN (06:35)
[2025-09-10 07:25] VITALS: BP 133/81
[2025-09-10] MEDS ORDERED: NARCAN4 M1 (11:32)
[2025-09-10] MEDS ORDERED: OXYC10TA19 PO (11:34)
[2025-09-10] MEDS ORDERED: ONDA4 PO (11:35)
[2025-09-10] MEDS ORDERED: MIRALAX17 GM PO (11:36)
--- NOTE | 2025-09-10 12:31 | NUR ---
DISCHARGE PT DISCHARGED HOME. PAPER PRESCRIPTION PROVIDED, EDUCATION PROVIDED, ALL QUESTIONS ANSWERED.
== END 2025-09-10 12:25 | disposition home or self-care (01) | DRG 440 ==
LOC: ER 09:47 → MEDS 09:48 → ENPENDDIS 09-10 10:54 → MEDS 09-10 12:25
PROVIDERS: Family Medicine; Internal Medicine; Student in an Organized Health Care Education/Training Program; ADMIT Internal Medicine
DX: K85.90 Acute pancreatitis without necrosis or infection, unspecified (principal); E78.5 Hyperlipidemia, unspecified; F32.A Depression, unspecified; K21.9 Gastro-esophageal reflux disease without esophagitis; F41.9 Anxiety disorder, unspecified; E11.9 Type 2 diabetes mellitus without complications; E86.9 Volume depletion, unspecified; F17.210 Nicotine dependence, cigarettes, uncomplicated; L29.9 Pruritus, unspecified; E87.6 Hypokalemia; E61.1 Iron deficiency; K59.00 Constipation, unspecified; Z90.89 Acquired absence of other organs; Z90.49 Acquired absence of other specified parts of digestive tract; Z98.890 Other specified postprocedural states; Z79.899 Other long term (current) drug therapy; Z88.5 Allergy status to narcotic agent; Z88.8 Allergy status to other drugs, medicaments and biological substances
CPT/HCPCS: 36415; 74177; 74181; 80048; 80053; 81003; 82330; 82465; 82728; 82784; 82947; 83540; 83550; 83605; 83615; 83690; 83735; 84145; 84478; 84703; 85025; 86140; 93005; 93010; 96361; 96374-59; 96376; 99285-25; A9270; G0378; J1171; J1650; J1750; J1815; J1885; J2405; J2470; J2765; J3010; J3475; J3480; J7050; J7120; Q0177; Q9967